=== PATIENT | female | born 1990 | race Hispanic/Latino ===

== ENCOUNTER 2016-08-06 04:39 | Outpatient (CLI) | payer BC, MEDICAID ==
[2016-08-06] MEDS ORDERED: LACTATED RINGERS 500 ML IV ONE (04:54)
[2016-08-06 05:28] LABS: Bacteria,Urine 1+ /HPF (Negative); Bilirubin,Urine NEG (Negative); Blood,Urine LG (Negative); Ketones,Urine NEG (Negative); Leukocyte Esterase,Urine NEG (Negative); Mucus,Urine FEW /HPF; Nitrite,Urine NEG (Negative); Protein,Urine <15 mg/dL mg/dL (Negative)
[2016-08-06 06:45] VITALS: BP 103/56
--- NOTE | 2016-08-06 10:35 | Ultrasound Report ---
BIOPHYSICAL PROFILE: History: well-being. Technique: Transabdominal ultrasound with Doppler interrogation. 2 - breathing movements 2 - movements 2 - posture and tone 2 - Qualitative amniotic fluid volume 8 - TOTAL SCORE OF POSSIBLE 8 Heart Rate (bpm) 146
== END 2016-08-06 06:53 | disposition home or self-care (01) ==
LOC: TRG 04:39
PROVIDERS: ATTEND Obstetrics & Gynecology Gynecology
DX: O47.03 False labor before 37 completed weeks of gestation, third trimester (principal); Z3A.35 35 weeks gestation of pregnancy
CPT/HCPCS: 76819; 81001

== ENCOUNTER 2016-08-10 19:49 | Outpatient (CLI) | payer BC, MEDICAID ==
[2016-08-10 22:32] VITALS: BP 133/80
[2016-08-11] MEDS ORDERED: VISTARIL PO ONE (00:31)
--- NOTE | 2016-08-11 07:57 | Ultrasound Report ---
OB LIMITED Technique: Transabdominal ultrasound with Doppler interrogation. Gestation: Single Amniotic Fluid: Normal ANU = 7.5 cm Heart Rate: 121 BPM
--- NOTE | 2016-08-11 07:57 | Ultrasound Report ---
BIOPHYSICAL PROFILE: Technique: Transabdominal ultrasound with Doppler interrogation. 2 - breathing movements 2 - movements 2 - posture and tone 2 - Qualitative amniotic fluid volume 8 - TOTAL SCORE OF POSSIBLE 8 Heart Rate (bpm) 143
== END 2016-08-11 00:35 | disposition home or self-care (01) ==
LOC: TRG 19:49
PROVIDERS: ATTEND Obstetrics & Gynecology Gynecology
DX: O47.03 False labor before 37 completed weeks of gestation, third trimester (principal); Z3A.35 35 weeks gestation of pregnancy
CPT/HCPCS: 76815; 76819; Q0177

== ENCOUNTER 2016-08-17 18:09 | Inpatient (IN) | payer BC, MEDICAID ==
[2016-08-17] MEDS ORDERED: COLACE PO PRN (19:17)
[2016-08-17] MEDS ORDERED: MILK OF MAGNESIA PO PRN (19:17)
[2016-08-17] MEDS ORDERED: ZOFRAN IV PRN (19:17)
[2016-08-17] MEDS ORDERED: APRESOLINE IV PRN (19:17)
--- NOTE | 2016-08-17 19:28 | History and Physical Report ---
History of Present Illness Date of examination: 08/17/16 Chief complaint: Headaches and blurred vision History of present illness: Pt is a 26yo WF EDC 09/10/16; EGA 36 4/7 weeks presents from the office today complaining of headaches and blurred vision. BP's in office was 148/98 and she has a history of previous c section @ 32 weeks for preeclampsia. Today was her 1st visit at [facility] after transferring from [facility]. records are not available. On admission her BP was 113/66 Past History Past Medical History: no pertinent history Past Surgical History: section Family/Genetic History: none Social history: no significant social history, single - Obstetrical History Expected Date of Delivery: 09/10/16 Actual Gestation: 36 Week(s) 5 Day(s) : 2 Medications and Allergies Allergies Allergy/AdvReac Type Severity Reaction Status Date / Time Penicillins Allergy Rash Verified 09/23/15 11:22 Home Medications Medication Instructions Recorded Confirmed Last Taken Type Naproxen [Naprosyn] 500 mg PO BID #14 tablet 11/20/15 Unknown Rx Zoloft 0 mg PO DAILY 11/20/15 11/20/15 Unknown History Vit No.130/Iron/FA 1 each PO QDAY #30 tablet 01/23/16 Unknown Rx [ Tablet] Review of Systems All systems: negative - Vital Signs Vital signs: Vital Signs Pulse BP 96 H 113/66 08/17/16 18:52 08/17/16 18:52 Temp Pulse Resp BP Pulse Ox 105 H 132/83 08/17/16 19:12 08/17/16 19:12 - Physical Exam Breasts: Positive: deferred Cardiovascular: Regular rate Lungs: Positive: Clear to auscultation Abdomen: Positive: normal appearance, soft Uterus: Positive: enlarged Extremities: Positive: normal - Obstetrical FHR: category 1 Uterine Contraction Monitor Mode: External Uterine Contraction Pattern: Absent Results Result Diagrams: 08/17/16 20:16 08/17/16 20:16 All other labs normal. Assessment and Plan - Patient Problems (1) 36 weeks gestation of Onset Date: 08/17/16 Current Visit: Yes Status: Acute Plan to address problem: A: IUP @ 36 4/7 weeks Suspected pre-eclapmsia Previous C Section P: Admit to L&D for Observation Will monitor BP's and obtain PIH labs Obtain medical records from [facility] Obtain APA consult (2) Previous delivery affecting Onset Date: 08/17/16 Current Visit: Yes Status: Acute (3) Pre-eclampsia Onset Date: 08/17/16 Current Visit: Yes Status: Acute Qualifiers: Trimester: third trimester Qualified Code(s): O14.93 - Unspecified pre- eclampsia, third trimester
[2016-08-17] MEDS ORDERED: LACTATED RINGERS 1,000 ML IV SCH (20:00)
[2016-08-17 20:44] LABS: Basophils % (Auto) 0.3 % (0.0-1.8); Eosinophils % (Auto) 1.4 % (0.0-4.3); Hematocrit 33.2 % (30.3-42.9); Hemoglobin 11.3 gm/dl (10.1-14.3); Mean Corpuscular HGB Conc 34 % (30-34); Mean Corpuscular Hemoglobin 29 pg (28-32); Mean Corpuscular Volume 84 fl (79-97); Red Blood Count 3.95 M/mm3 (3.65-5.03); Red Cell Distribution Width 13.1 % (13.2-15.2); White Blood Count 12.1 K/mm3 (4.5-11.0)
[2016-08-17 20:56] LABS: Bacteria,Urine 1+ /HPF (Negative); Bilirubin,Urine NEG (Negative); Blood,Urine NEG (Negative); Ketones,Urine NEG (Negative); Leukocyte Esterase,Urine NEG (Negative); Mucus,Urine FEW /HPF; Nitrite,Urine NEG (Negative); Protein,Urine <15 mg/dL mg/dL (Negative); Urobilinogen,Urine < 2.0 mg/dL (<2.0)
[2016-08-17 21:03] LABS: Platelet Count 165 K/mm3 (140-440)
[2016-08-17] MEDS: TYLENOL PO PRN (21:07)
[2016-08-17 21:11] LABS: Uric Acid 4.4 mg/dL (3.5-7.6)
[2016-08-17 21:12] LABS: Alanine Aminotransferase 14 units/L (7-56); Albumin 3.3 g/dL (3.9-5); Alkaline Phosphatase 158 units/L (35-129); Anion Gap 21 mmol/L; Bilirubin,Total 0.2 mg/dL (0.1-1.2); Blood Urea Nitrogen 4 mg/dL (7-17); Calcium 8.9 mg/dL (8.4-10.2); Carbon Dioxide 20 mmol/L (22-30); Chloride 97.5 mmol/L (98-107); Glucose 77 mg/dL (65-100); Potassium 3.4 mmol/L (3.6-5.0); Sodium 135 mmol/L (137-145); Total Protein 6.7 g/dL (6.3-8.2)
[2016-08-17] MEDS ORDERED: AMBIEN PO PRN (22:38)
[2016-08-17] MEDS: LACTATED RINGERS 1,000 ML IV SCH (23:09)
--- NOTE | 2016-08-18 08:41 | Consultation ---
History of Present Illness Consult date: 08/18/16 Requesting physician: KAYE NANCE History of present illness: Chief complaint: Headaches and blurred vision History of present illness: Pt is a 26yo WF EDC 09/10/16; EGA 365/7 weeks Presented from the office today complaining of headaches and blurred vision. Today GERONIMO's - States " I have not eaten and this may be causing my GERONIMO's" - Denies HO CHTN BP's in office was ??? 148/98 (no records) and she has a history of previous c section @ 32 weeks for preeclampsia. Yesterday was her 1st visit at [facility] after transferring from [facility]. records are not available. On admission her BP was 113/66 now BP's Normal 115/69 ---- Labs Plts and Liver Functions WNL ---- Abdomen Obese Gravid NT no rebound no guarding Ext tr edema DTR's 2/4 no clonus Past History Past Medical History: no pertinent history Past Surgical History: section and APPY Family/Genetic History: none Social history: no significant social history, single Allergies - PCN - Obstetrical History Expected Date of Delivery: 09/10/16 Actual Gestation: 36 Week(s) 5 Day(s) : 2 States last Past History Past Medical History: no pertinent history Past Surgical History: section Family/Genetic History: none - Obstetrical History : 2 Medications and Allergies Allergies Allergy/AdvReac Type Severity Reaction Status Date / Time Penicillins Allergy Rash Verified 09/23/15 11:22 Home Medications Medication Instructions Recorded Confirmed Last Taken Type Naproxen [Naprosyn] 500 mg PO BID #14 tablet 11/20/15 Unknown Rx Zoloft 0 mg PO DAILY 11/20/15 11/20/15 Unknown History Vit No.130/Iron/FA 1 each PO QDAY #30 tablet 01/23/16 Unknown Rx [ Tablet] Active Meds: Active Medications Acetaminophen (Tylenol) 650 mg PO Q4H PRN PRN Reason: Pain MILD(1-3)/Fever >100.5/GERONIMO Last Admin: 08/17/16 21:07 Dose: 650 mg Docusate Sodium (Colace) 100 mg PO Q12H PRN PRN Reason: Constipation Hydralazine HCl (Apresoline) 5 mg IV Q30MIN PRN PRN Reason: Hypertension Lactated Ringer's (Lactated Ringers) 1,000 mls @ 125 mls/hr IV DIRECT NIKI Last Admin: 08/17/16 23:09 Dose: 125 mls/hr Magnesium Hydroxide (Milk Of Magnesia) 30 ml PO QHS PRN PRN Reason: Laxative Effect Multivitamins/Iron/Calcium ( Vitamin) 1 each PO QDAY NIKI Ondansetron HCl (Zofran) 4 mg IV Q6H PRN PRN Reason: Nausea And Vomiting Zolpidem Tartrate (Ambien) 10 mg PO QHS PRN PRN Reason: Insomnia Last Admin: 08/17/16 22:53 Dose: 10 mg - Vital Signs Vital signs: Vital Signs Pulse BP 96 H 113/66 08/17/16 18:52 08/17/16 18:52 Temp Pulse Resp BP Pulse Ox 97.0 F L 91 H 20 115/69 97 08/17/16 19:09 08/18/16 06:37 08/17/16 21:07 08/18/16 06:37 08/17/16 23:07 Results Result Diagrams: 08/17/16 20:16 08/17/16 20:16 Abnormal lab results 08/17/16 08/17/16 Range/Units 20:16 20:16 WBC 12.1 H (4.5-11.0) K/mm3 RDW 13.1 L (13.2-15.2) % Seg Neutrophils % 75.1 H (40.0-70.0) % Seg Neutrophils # 9.1 H (1.8-7.7) K/mm3 Sodium 135 L (137-145) mmol/L Potassium 3.4 L (3.6-5.0) mmol/L Chloride 97.5 L (98-107) mmol/L Carbon Dioxide 20 L (22-30) mmol/L BUN 4 L (7-17) mg/dL Creatinine 0.4 L (0.7-1.2) mg/dL Alkaline Phosphatase 158 H (35-129) units/L Albumin 3.3 L (3.9-5) g/dL All other labs normal. Assessment and Plan Assessment 1. Zamudio IUP at 36 5/7 weeks 2. GERONIMO's 3. H/O PTD secondary to Preeclamsia at 32 weeks with Prior Preg Recommendations: 1. Would allow diet - if GERONIMO's improving and BP's Normal and Labs remain Normal (24 Hour Urine Prot Pending) would allow discharge. 2. If GERONIMO's persistent despite diet and BP's remain normal - would obtain Neuro Consult 3. IF BP's increasing or would proceed with Delivery 4. Would try to obtain OB records to determine if BP's elevated in office 5. Discussed in detail with patient -
[2016-08-18] MEDS: TYLENOL PO PRN ×2 (08:54→19:05)
[2016-08-18] MEDS: LACTATED RINGERS 1,000 ML IV SCH ×2 (08:56→22:07)
[2016-08-18] MEDS ORDERED: PRENATAL VITAMIN PO SCH (10:00)
--- NOTE | 2016-08-18 11:38 | Progress Note ---
Assessment and Plan - Patient Problems (1) 36 weeks gestation of Onset Date: 08/17/16 Current Visit: Yes Status: Acute Plan to address problem: A: IUP @ 36 5/7 weeks Suspect pre-eclampsia - BP's normal and LFT's - WNL. P: Appreciate APA consultation Awaiting results of 24hr urine for protein Possible discharge to home tonight depending on results (2) Previous delivery affecting Onset Date: 08/17/16 Current Visit: Yes Status: Acute (3) Pre-eclampsia Onset Date: 08/17/16 Current Visit: Yes Status: Acute Qualifiers: Trimester: third trimester Qualified Code(s): O14.93 - Unspecified pre- eclampsia, third trimester Subjective - Subjective Date of service: 08/18/16 Principal diagnosis: IUP @ 36 5/7 weeks; Suspected pre-eclampsia Interval history: Pt is feeling better, headaches resolved. Still has blurred vision. BP 117/62 Patient reports: movement normal, no new complaints, no loss of fluid, no vaginal bleeding, no contractions Objective - Vital Signs Vital Signs: Vital Signs - 12hr 08/18/16 08/18/16 08/18/16 00:38 02:38 04:37 Temperature Pulse Rate 115 H 100 H 101 H Pulse Rate [ From Monitor] Respiratory Rate Blood Pressure 136/91 112/56 108/53 Blood Pressure [Left Arm] O2 Sat by Pulse Oximetry 08/18/16 08/18/16 08/18/16 06:37 08:35 08:36 Temperature 95.6 F L Pulse Rate 91 H 93 H Pulse Rate [ 100 H From Monitor] Respiratory 20 Rate Blood Pressure 115/69 122/71 Blood Pressure 122/71 [Left Arm] O2 Sat by Pulse Oximetry 08/18/16 08/18/16 08/18/16 08:37 08:42 08:47 Temperature Pulse Rate 106 H 106 H 104 H Pulse Rate [ From Monitor] Respiratory Rate Blood Pressure Blood Pressure [Left Arm] O2 Sat by Pulse 99 97 98 Oximetry 08/18/16 08/18/16 08/18/16 08:52 08:54 08:57 Temperature Pulse Rate 94 H 100 H Pulse Rate [ From Monitor] Respiratory 20 Rate Blood Pressure Blood Pressure [Left Arm] O2 Sat by Pulse 97 98 Oximetry 08/18/16 08/18/16 08/18/16 09:02 09:07 09:12 Temperature Pulse Rate 100 H 100 H 106 H Pulse Rate [ From Monitor] Respiratory Rate Blood Pressure Blood Pressure [Left Arm] O2 Sat by Pulse 98 99 98 Oximetry 08/18/16 08/18/16 08/18/16 09:17 09:22 09:27 Temperature Pulse Rate 104 H 114 H 98 H Pulse Rate [ From Monitor] Respiratory Rate Blood Pressure Blood Pressure [Left Arm] O2 Sat by Pulse 99 100 99 Oximetry 08/18/16 08/18/16 08/18/16 09:32 09:37 09:42 Temperature Pulse Rate 91 H 90 90 Pulse Rate [ From Monitor] Respiratory Rate Blood Pressure Blood Pressure [Left Arm] O2 Sat by Pulse 100 100 100 Oximetry 08/18/16 08/18/16 08/18/16 09:47 09:52 09:57 Temperature Pulse Rate 96 H 97 H 97 H Pulse Rate [ From Monitor] Respiratory Rate Blood Pressure Blood Pressure [Left Arm] O2 Sat by Pulse 100 100 99 Oximetry 08/18/16 08/18/16 08/18/16 10:02 10:07 10:12 Temperature Pulse Rate 112 H 89 91 H Pulse Rate [ From Monitor] Respiratory Rate Blood Pressure Blood Pressure [Left Arm] O2 Sat by Pulse 99 99 99 Oximetry 08/18/16 08/18/16 08/18/16 10:17 10:22 10:27 Temperature Pulse Rate 91 H 103 H 92 H Pulse Rate [ From Monitor] Respiratory Rate Blood Pressure Blood Pressure [Left Arm] O2 Sat by Pulse 98 97 98 Oximetry 08/18/16 08/18/16 08/18/16 10:32 10:37 10:38 Temperature Pulse Rate 83 108 H 110 H Pulse Rate [ From Monitor] Respiratory Rate Blood Pressure 120/56 Blood Pressure [Left Arm] O2 Sat by Pulse 97 98 Oximetry 08/18/16 08/18/16 08/18/16 10:42 10:47 10:52 Temperature Pulse Rate 92 H 94 H 96 H Pulse Rate [ From Monitor] Respiratory Rate Blood Pressure Blood Pressure [Left Arm] O2 Sat by Pulse 98 97 99 Oximetry 08/18/16 08/18/16 08/18/16 10:57 11:10 11:12 Temperature Pulse Rate 85 100 H 97 H Pulse Rate [ From Monitor] Respiratory Rate Blood Pressure 117/62 Blood Pressure [Left Arm] O2 Sat by Pulse 98 100 Oximetry 08/18/16 08/18/16 08/18/16 11:17 11:22 11:27 Temperature Pulse Rate 99 H 91 H 98 H Pulse Rate [ From Monitor] Respiratory Rate Blood Pressure Blood Pressure [Left Arm] O2 Sat by Pulse 100 100 100 Oximetry 08/18/16 11:32 Temperature Pulse Rate 95 H Pulse Rate [ From Monitor] Respiratory Rate Blood Pressure Blood Pressure [Left Arm] O2 Sat by Pulse 100 Oximetry - Exam Cardiovascular: Regular rate Lungs: Clear to auscultation Abdomen: Present: normal appearance, soft Uterus: Present: normal FHR: category 1 Uterine Contraction Monitor Mode: External Uterine Contraction Pattern: Absent - Labs Labs: Abnormal Labs 08/17/16 08/17/16 20:16 20:16 WBC 12.1 H RDW 13.1 L Seg Neutrophils % 75.1 H Seg Neutrophils # 9.1 H Sodium 135 L Potassium 3.4 L Chloride 97.5 L Carbon Dioxide 20 L BUN 4 L Creatinine 0.4 L Alkaline Phosphatase 158 H Albumin 3.3 L Laboratory Results - last 24 hr 08/17/16 08/17/16 08/17/16 20:16 20:16 20:16 WBC 12.1 H RBC 3.95 Hgb 11.3 Hct 33.2 MCV 84 MCH 29 MCHC 34 RDW 13.1 L Plt Count 165 Lymph % (Auto) 17.8 George % (Auto) 5.4 Eos % (Auto) 1.4 Baso % (Auto) 0.3 Lymph # 2.2 George # 0.7 Eos # 0.2 Baso # 0.0 Seg Neutrophils % 75.1 H Seg Neutrophils # 9.1 H Sodium 135 L Potassium 3.4 L Chloride 97.5 L Carbon Dioxide 20 L Anion Gap 21 BUN 4 L Creatinine 0.4 L Estimated GFR > 60 BUN/Creatinine Ratio 10.00 Glucose 77 Uric Acid Calcium 8.9 Total Bilirubin 0.2 AST 11 ALT 14 Alkaline Phosphatase 158 H Total Protein 6.7 Albumin 3.3 L Albumin/Globulin Ratio 1.0 Urine Color Yellow Urine Turbidity Clear Urine pH 6.0 Ur Specific Meridian 1.010 Urine Protein <15 mg/dl Urine Glucose (UA) Neg Urine Ketones Neg Urine Blood Neg Urine Nitrite Neg Urine Bilirubin Neg Urine Urobilinogen < 2.0 Ur Leukocyte Esterase Neg Urine WBC (Auto) 1.0 Urine RBC (Auto) 2.0 U Epithel Cells (Auto) 6.0 Urine Bacteria (Auto) 1+ Urine Mucus Few Blood Type Antibody Screen 08/17/16 08/17/16 20:16 20:16 WBC RBC Hgb Hct MCV MCH MCHC RDW Plt Count Lymph % (Auto) George % (Auto) Eos % (Auto) Baso % (Auto) Lymph # George # Eos # Baso # Seg Neutrophils % Seg Neutrophils # Sodium Potassium Chloride Carbon Dioxide Anion Gap BUN Creatinine Estimated GFR BUN/Creatinine Ratio Glucose Uric Acid 4.4 Calcium Total Bilirubin AST 11 ALT 14 Alkaline Phosphatase Total Protein Albumin Albumin/Globulin Ratio Urine Color Urine Turbidity Urine pH Ur Specific Meridian Urine Protein Urine Glucose (UA) Urine Ketones Urine Blood Urine Nitrite Urine Bilirubin Urine Urobilinogen Ur Leukocyte Esterase Urine WBC (Auto) Urine RBC (Auto) U Epithel Cells (Auto) Urine Bacteria (Auto) Urine Mucus Blood Type O POSITIVE Antibody Screen Negative
[2016-08-19 00:12] VITALS: BP 143/71
--- NOTE | 2016-08-19 00:25 | Discharge Summary ---
Providers - Providers Date of Admission: 08/17/16 23:56 Date of discharge: 08/19/16 Attending physician: KAYE NANCE 08/18/16 06:21 Consult to Physician [CONS] Urgent Consulting Provider: SAY JUÁREZ Reason For Exam: Preeclampsia Place consult to:: NIALL Notified:: Answering service Phone number called:: [phone] Was contact made?: Yes If yes, spoke with:: Isela Time called:: 06:23 Primary care physician: KAYE NANCE Hospitalization Reason for admission: other (IUP @ 36 4/7 weeks; Suspect pre-eclampsia) Other procedures: none complications: none Discharge diagnosis: other (IUP @ 36 5/7 weeks; Gestational hypertension) Hospital course: Pt is a 26yo WF EDC 09/10/16; EGA 36 4/7 weeks who presented from the office today complaining of headaches and blurred vision. BP's in office was 148/98 and she has a history of previous c section @ 32 weeks for preeclampsia. records are not available. On admission her BP was 113/66, and they remained normal throughout her admission, including Normal PIH labs and 24hr urine showed 198mg of protein. After consultation with NIALL, and with resolution of headaches, pt was discharged to home in stable condition. Condition at discharge: Good Disposition: DISCHARGED TO HOME OR SELFCARE - Discharge Diagnoses (1) 36 weeks gestation of Status: Acute (2) Previous delivery affecting Status: Acute (3) Pre-eclampsia Status: Ruled-out Qualifiers: Trimester: third trimester Qualified Code(s): O14.93 - Unspecified pre- eclampsia, third trimester Plan - Provider Discharge Summary Activity: routine, no strenuous exercise Diet: routine Instructions: routine Additional instructions: [] Smoking cessation referral if applicable(refer to patient education folder for contact #) [] Refer to [facility] Booklet Call your doctor immediately for: * Fever > 100.5 * Heavy vaginal bleeding ( >1 pad per hour) * Severe persistent headache * Shortness of breath * Reddened, hot, painful area to leg or breast * Drainage or odor from incision. * Keep incision clean and dry at all times and follow doctor's instructions regarding bathing/showering - Follow up plan Follow up: KAYE NANCE MD [Primary Care Provider] - 3 Days
== END 2016-08-19 00:50 | disposition home or self-care (01) | DRG 781 ==
LOC: TRG 18:09 → LD 18:41 → TRG 23:56
PROVIDERS: ADMIT Obstetrics & Gynecology; ATTEND Obstetrics & Gynecology
DX: O34.219 Maternal care for unspecified type scar from previous cesarean delivery (principal); O24.419 Gestational diabetes mellitus in pregnancy, unspecified control; O14.93 Unspecified pre-eclampsia, third trimester; O26.893 Other specified pregnancy related conditions, third trimester; R51 Headache; H53.8 Other visual disturbances; Z3A.36 36 weeks gestation of pregnancy; Z88.0 Allergy status to penicillin
CPT/HCPCS: 36415; 80053; 81001; 84156; 84450; 84460; 84550; 85025; 86850; 86900; 86901; J7120

== ENCOUNTER 2016-08-20 17:49 | Outpatient (CLI) | payer MEDICAID ==
[2016-08-20 18:13] VITALS: BP 124/71
== END 2016-08-20 19:12 | disposition home or self-care (01) ==
LOC: TRG 17:49
PROVIDERS: ATTEND Obstetrics & Gynecology Gynecology
DX: O47.1 False labor at or after 37 completed weeks of gestation (principal); Z3A.37 37 weeks gestation of pregnancy
CPT/HCPCS: 59025

== ENCOUNTER 2016-08-23 18:45 | Outpatient (CLI) | payer MEDICAID ==
[2016-08-23 19:37] VITALS: BP 125/77
== END 2016-08-23 20:13 | disposition home or self-care (01) ==
LOC: TRG 18:45
PROVIDERS: ATTEND Obstetrics & Gynecology
DX: O47.1 False labor at or after 37 completed weeks of gestation (principal); Z3A.37 37 weeks gestation of pregnancy

== ENCOUNTER 2016-08-28 23:03 | Outpatient (CLI) | payer MEDICAID ==
[2016-08-29 00:09] VITALS: BP 146/77
== END 2016-08-29 00:21 | disposition home or self-care (01) ==
LOC: TRG 23:03
PROVIDERS: ATTEND Obstetrics & Gynecology Gynecology
DX: Z34.93 Encounter for supervision of normal pregnancy, unspecified, third trimester (principal); Z3A.38 38 weeks gestation of pregnancy

== ENCOUNTER 2016-09-04 18:59 | Outpatient (CLI) | payer MEDICAID ==
[2016-09-04 19:12] VITALS: BP 120/80
[2016-09-04] MEDS ORDERED: LACTATED RINGERS 1,000 ML IV ONE (19:54)
== END 2016-09-04 21:14 | disposition home or self-care (01) ==
LOC: TRG 18:59
PROVIDERS: ATTEND Obstetrics & Gynecology
DX: O47.1 False labor at or after 37 completed weeks of gestation (principal); Z3A.39 39 weeks gestation of pregnancy
CPT/HCPCS: 96360; J7120

== ENCOUNTER 2016-09-07 09:33 | Inpatient (IN) | payer MEDICAID ==
--- NOTE | 2016-09-07 09:43 | History and Physical Report ---
History of Present Illness Date of examination: 09/07/16 Date of admission: 09/07/16 09:33 Chief complaint: Here for repeat C Section History of present illness: Pt is a 26yo WF EDC 09/10/16; EGA 39 4/7 weeks presents for a Repeat C Section. She received late care from [facility] at 36 weeks after being dismissed from another practice for non-compliance. records from her previous associate media director is not available and GBS is positive. Past History Past Medical History: hypertension (gestational) Past Surgical History: section Family/Genetic History: hypertension Social history: no significant social history, single - Obstetrical History Expected Date of Delivery: 09/10/16 Actual Gestation: 39 Week(s) 4 Day(s) : 3 Medications and Allergies Allergies Allergy/AdvReac Type Severity Reaction Status Date / Time Penicillins Allergy Rash Verified 09/23/15 11:22 Home Medications Medication Instructions Recorded Confirmed Last Taken Type Naproxen [Naprosyn] 500 mg PO BID #14 tablet 11/20/15 08/20/16 Unknown Rx Zoloft 0 mg PO DAILY 11/20/15 08/20/16 Unknown History Vit No.130/Iron/FA 1 each PO QDAY #30 tablet 01/23/16 08/20/16 1 Day Ago Rx [ Tablet] Active Meds: Active Medications Citric Acid/Sodium Citrate (Bicitra) 30 ml PO ONCE ONE Stop: 09/07/16 09:40 Famotidine (Pepcid) 20 mg IV ONCE ONE Stop: 09/07/16 09:40 Clindamycin HCl (Cleocin 600 Mg/50 Ml) 600 mg in 50 mls @ 100 mls/hr IV PREOP NR PRN Reason: Protocol Gentamicin Sulfate 80 mg/ (Sodium Chloride) 102 mls @ 200 mls/hr IV PREOP NIKI PRN Reason: Protocol Lactated Ringer's (Lactated Ringers) 1,000 mls @ 2,250 mls/hr IV PREOP NIKI Stop: 09/08/16 10:27 Oxytocin/Sodium Chloride (Pitocin/Ns 20 Unit/1000ml Drip) 20 units in 1,000 mls @ 0 mls/hr IV TITR NIKI PRN Reason: As Directed Metoclopramide HCl (Reglan) 10 mg IV ONCE ONE Stop: 09/07/16 09:40 Review of Systems All systems: negative - Physical Exam Breasts: Positive: deferred Cardiovascular: Regular rate Lungs: Positive: Clear to auscultation Abdomen: Positive: normal appearance, soft Uterus: Positive: enlarged Extremities: Positive: normal - Obstetrical FHR: category 1 Uterine Contraction Monitor Mode: External Uterine Contraction Pattern: Absent Results Result Diagrams: 09/07/16 10:00 All other labs normal. Assessment and Plan - Patient Problems (1) 39 weeks gestation of Onset Date: 09/07/16 Current Visit: Yes Status: Acute Plan to address problem: A: IUP @ 39 4/7 weeks Previous C Section P: Admit to L&D for Repeat C Section (2) Previous delivery affecting Onset Date: 08/17/16 Current Visit: No Status: Acute
[2016-09-07] MEDS ORDERED: GARAMYCIN 80 MG in NACL 0.9% 100 ML IV SCH (09:45)
[2016-09-07] MEDS ORDERED: REGLAN IV NR (10:00)
[2016-09-07] MEDS ORDERED: PEPCID IV NR (10:00)
[2016-09-07] MEDS ORDERED: PITOCin/NS 20 UNIT/1000ML DRIP 20 UNITS/1,000 ML BAG IV SCH ×2 (10:00→15:00)
[2016-09-07] MEDS ORDERED: GARAMYCIN/NS 80 MG/100 ML 100 ML IV NR (10:00)
[2016-09-07] MEDS ORDERED: CLEOCIN 600 MG/50 mL 600 MG/50 ML BAG IV NR (10:00)
[2016-09-07] MEDS ORDERED: LACTATED RINGERS 1,000 ML IV SCH (10:00)
[2016-09-07] MEDS ORDERED: BICITRA PO NR (10:00)
[2016-09-07 10:48] LABS: Basophils % (Auto) 0.2 % (0.0-1.8); Eosinophils % (Auto) 0.8 % (0.0-4.3); Hemoglobin 11.1 gm/dl (10.1-14.3); Mean Corpuscular HGB Conc 34 % (30-34); Mean Corpuscular Hemoglobin 28 pg (28-32); Mean Corpuscular Volume 83 fl (79-97); Platelet Count 171 K/mm3 (140-440); Red Cell Distribution Width 13.6 % (13.2-15.2); White Blood Count 11.7 K/mm3 (4.5-11.0)
--- NOTE | 2016-09-07 10:56 | Anesthesia Consultation ---
Anesthesia Consult and Med Hx Date of service: 09/07/16 - Airway Anesthetic Teeth Evaluation: Good ROM Head & Neck: Adequate Mental/Hyoid Distance: Adequate Mallampati Class: Class II Intubation Access Assessment: Probably Good - Pre-Operative Health Status ASA Pre-Surgery Classification: ASA3 Proposed Anesthetic Plan: Epidural, Spinal - Pulmonary Hx Asthma: Yes COPD: No Hx Pneumonia: No - Cardiovascular System Hx Hypertension: Yes (PIH) - Central Nervous System Hx Seizures: No Hx Psychiatric Problems: No - Endocrine Hx Renal Disease: No Hx End Stage Renal Disease: No Hx Hypothyroidism: No Hx Hyperthyroidism: No - Hematic Hx Anemia: No Hx Sickle Cell Disease: No - Other Systems Hx Alcohol Use: No Hx Obesity: Yes (morbid obesityBMI 46.6)
--- NOTE | 2016-09-07 10:57 | Anesthesia Day of Surgery ---
Anesthesia Day of Surgery - Day of Surgery Patient Examined: Yes Patient H&P Reviewed: Yes Patient is NPO: Yes
[2016-09-07] MEDS ORDERED: SODIUM CHLORIDE FLUSH SYRINGE 10 ML IV PRN (11:00)
[2016-09-07] MEDS ORDERED: ZOFRAN IV PRN (11:00)
[2016-09-07] MEDS ORDERED: TORADOL IV PRN (11:00)
[2016-09-07] MEDS ORDERED: DILAUDID IV PRN (11:00)
[2016-09-07] MEDS ORDERED: NARCAN 0.4 MG/1 ML IV PRN ×2 (11:30→13:53)
[2016-09-07] MEDS ORDERED: MORPHINE ONE (11:39)
[2016-09-07] MEDS ORDERED: NEO SYNEPHRINE/NS Syringe(OR USE) IV ONE ×2 (12:21→12:30)
[2016-09-07] MEDS ORDERED: WATER FOR IRRIG STERILE IR ONE (12:40)
[2016-09-07] MEDS ORDERED: NACL 0.9% IR ONE (12:40)
[2016-09-07] MEDS ORDERED: ZOFRAN ONE (12:43)
[2016-09-07] MEDS ORDERED: TORADOL ONE (12:55)
[2016-09-07] MEDS: BENADRYL IV PRN ×2 (13:30→15:54)
[2016-09-07] MEDS ORDERED: NORCO 5/325 PO PRN (13:53)
[2016-09-07] MEDS ORDERED: SENOKOT PO PRN (13:53)
[2016-09-07] MEDS ORDERED: PHENERGAN PR PRN (13:53)
[2016-09-07] MEDS ORDERED: TUCKS PAD TP PRN (13:53)
[2016-09-07] MEDS ORDERED: TYLENOL PO PRN (13:53)
[2016-09-07] MEDS ORDERED: D5LR 1,000 ML IV SCH (14:00)
[2016-09-07] MEDS ORDERED: SODIUM CHLORIDE FLUSH SYRINGE 10 ML IV NR (14:00)
--- NOTE | 2016-09-07 14:11 | Operative Report ---
Operative Report Operative Report: Date of procedure: 09/07/2016 Pre-operative diagnosis: 1. Intrauterine at 39-4/7 weeks 2. Previous section Post-operative diagnosis: Same Procedure name(s): Repeat low transverse section Surgeon: Mark Paz MD Social Secretary: None Anesthesia: Spinal anesthesia by Dr. Choco Kate EBL: 700 MLS Findings: A 2896 g male infant Apgars 8 at 1 minute 9 at 5 minutes. Clear amniotic fluid. Normal uterus with lower uterine adhesions. Normal tubes and ovaries bilaterally Procedure: After the patient was prepped and draped in usual sterile fashion, and after satisfactory level of epidural anesthesia was obtained, the skin knife was used to make a transverse skin incision through the previous skin scar. The incision was excised down to layer of the fascia, which was nicked in the midline and extended laterally using the Bovie cautery. The rectus muscles were dissected off the rectus fascia both superiorly and inferiorly. The rectus bellies in the midline, and the peritoneum was entered under direct visualization. The peritoneal incision was extended superiorly and inferiorly, and dense adhesions from the lower uterine segment was taken down. A bladder flap was created and the bladder blade was then placed. The uterus was scored in a curvilinear linear fashion, entered in the midline revealing clear amniotic fluid. The infant's head was delivered onto the surgical field with the aid of a vacuum, and nuchal cord 1 was reduced, and the oropharynx and nasopharynx were bulb suctioned. The rest of the 's body was delivered, cord was doubly clamped and cut and the infant was handed to the waiting respiratory team. Cord blood was then obtained. The placenta was manually removed from the uterus, and the uterus removed from its normal anatomical position. After gentle uterine lavage, the incision was inspected and found to be without extensions. It was then closed in 2 layers using 0 Vicryl suture in a running interlocking fashion, the second layer imbricating the first. After good hemostasis was achieved, copious amounts or irrigation was performed, and the gutters were suctioned free of blood and blood clots. The Tisseel sealant was sprayed across the uterine incision. The uterus was then returned to its normal anatomical position, and after excellent hemostasis assured, the peritoneum was reapproximated using 3-0 Vicryl suture in a running interlocking fashion, and then the rectus muscles were reapproximated using 3-0 Vicryl suture in a [id number] configuration. The fascia was then reapproximated using 0 Vicryl suture in running interlocking fashion. The subcutaneous layer was made hemostatic using Bovie cautery and reapproximated using 3-0 Vicryl suture in a running interlocking fashion, the Tisseel sealant was sprayed across the fascial incision and the skin edges reapproximated using 4-0 Vicryl suture in a subcuticular fashion. Patient tolerated the procedure well was transported to recovery in stable condition.
[2016-09-07] MEDS: CLEOCIN 600 MG/50 mL 600 MG/50 ML BAG IV SCH (17:43)
[2016-09-07] MEDS: PERCOCET 5/325 PO PRN (20:49)
[2016-09-08] MEDS: CLEOCIN 600 MG/50 mL 600 MG/50 ML BAG IV SCH (01:24)
[2016-09-08] MEDS: BENADRYL IV PRN ×2 (02:12→21:55)
[2016-09-08 02:25] LABS: Hematocrit 31.5 % (30.3-42.9); Hemoglobin 10.4 gm/dl (10.1-14.3)
[2016-09-08] MEDS: PERCOCET 5/325 PO PRN ×4 (04:02→22:09)
[2016-09-08] MEDS ORDERED: M-M-R II VACCINE SUB-Q ONE (06:00)
[2016-09-08] MEDS ORDERED: BOOSTRIX IM ONE (06:00)
[2016-09-08] MEDS: MOTRIN PO PRN ×3 (07:39→18:30)
[2016-09-08] MEDS: LANSINOH TP PRN (07:40)
--- NOTE | 2016-09-08 10:15 | Progress Note ---
Subjective Date of service: 09/08/16 Interval history: 1st POD after repeat Patient is in the bed, relatively comfortable. Pain is mostly controlled with pain meds. Ambulated well. No residual neurological deficit. No anesthesia complications Objective - Constitutional Vitals: Vital Signs - 12hr 09/08/16 09/08/16 00:25 08:15 Temperature 98.3 F 99.2 F Pulse Rate [ 87 88 Radial] Respiratory 20 20 Rate Blood Pressure 110/70 [Left Arm] Blood Pressure 132/73 [Right Arm] - Labs CBC & Chem 7: 09/08/16 01:53 Labs: Abnormal lab results 09/07/16 Range/Units 10:00 WBC 11.7 H (4.5-11.0) K/mm3 Seg Neutrophils % 77.2 H (40.0-70.0) % Seg Neutrophils # 9.0 H (1.8-7.7) K/mm3
--- NOTE | 2016-09-08 10:35 | Progress Note ---
Assessment and Plan - Patient Problems (1) 39 weeks gestation of Onset Date: 09/07/16 Current Visit: Yes Status: Resolved (2) Previous delivery affecting Onset Date: 08/17/16 Current Visit: No Status: Resolved (3) Status post repeat low transverse section Onset Date: 09/08/16 Current Visit: Yes Status: Resolved Plan to address problem: A: S/P Repeat LTCS - POD #1 Doing well P: Continue RPOC Advance diet as tolerated Anticipate discharge in 24-48hrs Subjective - Subjective Date of service: 09/08/16 Principal diagnosis: s/p Repeat LTCS - POD #1 Interval history: Pt is feeling well without complaints. Tolerating a liquid diet without nausea or vomiting. + Flatus. Patient reports: appetite normal, voiding normally, pain well controlled, flatus , ambulating normally [place]: doing well, bottle feeding Objective - Vital Signs Latest vital signs: Vital Signs Temp Pulse Pulse Resp BP BP BP 09/08/16 08:15 99.2 F 88 20 110/70 09/08/16 00:25 98.3 F 87 20 132/73 09/07/16 20:20 98.2 F 90 20 127/71 09/07/16 14:30 97.6 F 87 20 133/64 09/07/16 14:10 98.1 F 80 14 112/73 09/07/16 13:54 97.9 F 83 12 127/52 09/07/16 13:40 97.9 F 83 12 115/60 09/07/16 13:25 85 15 113/72 09/07/16 13:20 97 H 14 88/53 09/07/16 13:15 97.7 F 101 H 18 108/66 Pulse Ox 09/08/16 08:15 09/08/16 00:25 09/07/16 20:20 09/07/16 14:30 09/07/16 14:10 98 09/07/16 13:54 83 L 09/07/16 13:40 83 L 09/07/16 13:25 80 L 09/07/16 13:20 98 09/07/16 13:15 98 Intake and Output 09/07/16 09/08/16 09/08/16 22:59 06:59 14:59 Intake Total 1700 240 Output Total 302 800 Balance 1398 -560 Intake: IV 500 CLEOCIN 600 MG/50 mL 600 50 mg In 50 ml @ 100 mls/hr IV Q8H [facility] Rx#:[id number] PITOCin/NS 20 UNIT/1000ML 450 DRIP 20 units In 1,000 ml @ 250 mls/hr IV TITR [facility] Rx#:[id number] Oral 1200 240 Output: Urine 302 800 Indwelling Catheter 300 300 Void 2 500 Other: Total, Intake Amount 240 240 Total, Output Amount 300 500 # Voids Void 1 - Exam Breasts: Present: deferred Cardiovascular: Present: Regular rate Lungs: Present: Clear to auscultation Abdomen: Present: normal appearance, soft Uterus: Present: normal, firm, fundal height below umbilicus Extremities: Present: normal Incision: Present: normal, dry, intact, dressed - Labs Labs: Abnormal lab results 09/07/16 Range/Units 10:00 WBC 11.7 H (4.5-11.0) K/mm3 Seg Neutrophils % 77.2 H (40.0-70.0) % Seg Neutrophils # 9.0 H (1.8-7.7) K/mm3 Laboratory Tests 09/07/16 09/07/16 09/07/16 10:00 10:00 10:00 WBC 11.7 H RBC 4.00 Hgb 11.1 Hct 33.0 MCV 83 MCH 28 MCHC 34 RDW 13.6 Plt Count 171 Lymph % (Auto) 17.0 [place] % (Auto) 4.8 Eos % (Auto) 0.8 Baso % (Auto) 0.2 Lymph # 2.0 [place] # 0.6 Eos # 0.1 Baso # 0.0 Seg Neutrophils % 77.2 H Seg Neutrophils # 9.0 H Hep Bs Antigen Non-reactive Blood Type O POSITIVE Antibody Screen Negative 09/08/16 01:53 WBC RBC Hgb 10.4 Hct 31.5 MCV MCH MCHC RDW Plt Count Lymph % (Auto) [place] % (Auto) Eos % (Auto) Baso % (Auto) Lymph # [place] # Eos # Baso # Seg Neutrophils % Seg Neutrophils # Hep Bs Antigen Blood Type Antibody Screen
[2016-09-08] MEDS ORDERED: FLUARIX QUAD 2016-2017(36 MOS+) IM ONE (12:00)
[2016-09-08] MEDS: PRENATAL VITAMIN PO SCH (12:55)
[2016-09-08] MEDS: FEOSOL PO SCH (12:55)
[2016-09-08] MEDS: MYLICON PO PRN (20:50)
[2016-09-09] MEDS: PERCOCET 5/325 PO PRN ×4 (02:11→21:04)
[2016-09-09] MEDS: MILK OF MAGNESIA PO PRN (08:46)
[2016-09-09] MEDS: MOTRIN PO PRN ×2 (10:43→18:09)
[2016-09-09] MEDS: FEOSOL PO SCH (10:43)
[2016-09-09] MEDS: PRENATAL VITAMIN PO SCH (10:43)
--- NOTE | 2016-09-09 12:33 | Progress Note ---
Assessment and Plan POD # 2 s/p Repeat C-sectiomn -doing well P: -Continue routine post-op care -Anticipate discharge in 24 hours - Patient Problems (1) Status post repeat low transverse section Onset Date: 09/08/16 Current Visit: Yes Status: Resolved Subjective - Subjective Date of service: 09/09/16 Principal diagnosis: s/p Repeat LTCS - POD #2 Interval history: Condition seen and examined, stable doing well. She fell on her belly last night and feels an ache otherwise no issues Patient reports: appetite normal, voiding normally, pain well controlled, flatus , ambulating normally, no dizzy ambulation, no bowel movement : doing well Objective - Vital Signs Latest vital signs: Vital Signs Temp Pulse Resp BP 09/09/16 08:28 98.7 F 90 20 113/67 09/09/16 00:00 98.6 F 77 24 122/74 09/08/16 19:40 98.6 F 72 22 115/70 09/08/16 16:38 98.4 F 76 20 110/84 Intake and Output 09/08/16 09/09/16 09/09/16 22:59 06:59 14:59 Intake Total 240 550 480 Balance 240 550 480 Intake: Oral 240 300 480 Intake, Free Water 250 Other: Total, Intake Amount 240 300 480 # Voids Void 1 1 - Exam Abdomen: Present: normal appearance, soft. Absent: distention, tenderness, guarding, rigidity Uterus: Present: fundal height below umbilicus. Absent: tenderness Incision: Present: dressed
[2016-09-09] MEDS: LANSINOH TP PRN (21:05)
[2016-09-09] MEDS: MYLICON PO PRN (21:08)
[2016-09-10] MEDS: PERCOCET 5/325 PO PRN ×2 (02:41→08:34)
[2016-09-10] MEDS: MOTRIN PO PRN (08:33)
[2016-09-10] MEDS: MILK OF MAGNESIA PO PRN (08:33)
--- NOTE | 2016-09-10 08:49 | Progress Note ---
Assessment and Plan POD # 3 s/p Repeat C-sectiomn -doing well P: -Discharged home -Follow-Up in clinic in ~ 2 weeks for incision check - Patient Problems (1) Status post repeat low transverse section Onset Date: 09/08/16 Current Visit: Yes Status: Resolved Subjective - Subjective Date of service: 09/10/16 Principal diagnosis: s/p Repeat LTCS - POD #3 Interval history: Patient seen and examined, stable doing well. Seen walking around in no distress, eager and ready for discharge Patient reports: appetite normal, voiding normally, pain well controlled, flatus , ambulating normally, no dizzy ambulation [place]: doing well Objective - Vital Signs Latest vital signs: Vital Signs Temp Pulse Resp BP 09/10/16 02:41 20 09/10/16 00:00 98.6 F 77 22 122/70 09/09/16 21:04 20 09/09/16 16:30 97.9 F 88 18 118/72 Intake and Output 09/09/16 09/10/16 09/10/16 22:59 06:59 14:59 Intake Total 960 900 Balance 960 900 Intake: Oral 960 300 Intake, Free Water 600 Other: Total, Intake Amount 480 300 # Voids Void 1 - Exam Abdomen: Present: normal appearance, soft. Absent: distention, tenderness, guarding, rigidity Uterus: Present: fundal height below umbilicus. Absent: tenderness Extremities: Present: normal Incision: Present: dry, dressed
--- NOTE | 2016-09-10 08:51 | Discharge Summary ---
Providers - Providers Date of Admission: 09/07/16 09:33 Date of discharge: 09/10/16 Attending physician: KAYE NANCE Primary care physician: KAYE NANCE Hospitalization Reason for admission: section, IUP at term Delivery: Procedure: repeat low transverse Incision: dry, intact Discharge diagnosis: IUP at term delivered [place] baby: male Hospital course: Uncomplicated postoperative course Condition at discharge: Good Disposition: DISCHARGED TO HOME OR SELFCARE - Discharge Diagnoses (1) Status post repeat low transverse section Status: Resolved Plan - Discharge Medications Prescriptions: Ferrous Sulfate [Feosol 325 MG tab] 325 mg PO BID #60 tablet HYDROcodone/APAP 5-325 [[place] 5/325] 1 each PO Q6HR PRN #30 tablet PRN Reason: Pain Ibuprofen [Motrin] 800 mg PO Q8HR PRN #30 tablet PRN Reason: Moder Pain Unrelieved By [place] Vit W-Ca,Fe,FA(<1 mg) [ Vitamins] 1 each PO DAILY #30 tablet - Provider Discharge Summary Activity: no sex for 6 weeks, no heavy lifting 4 weeks, no strenuous exercise Diet: routine Instructions: routine Additional instructions: [] Smoking cessation referral if applicable(refer to patient education folder for contact #) [] Refer to [facility]'s [facility] Booklet Call your doctor immediately for: * Fever > 100.5 * Heavy vaginal bleeding ( >1 pad per hour) * Severe persistent headache * Shortness of breath * Reddened, hot, painful area to leg or breast * Drainage or odor from incision. * Keep incision clean and dry at all times and follow doctor's instructions regarding bathing/showering - Follow up plan Follow up: KAYE NANCE MD [Primary Care Provider] - 14 Days
[2016-09-10] MEDS: PRENATAL VITAMIN PO SCH (11:47)
[2016-09-10] MEDS: FEOSOL PO SCH (11:47)
[2016-09-10] MEDS ORDERED: FLUARIX QUAD 2016-2017(36 MOS+) IM ONE (12:15)
[2016-09-10 14:13] VITALS: BP 126/76
== END 2016-09-10 11:10 | disposition home or self-care (01) | DRG 765 ==
LOC: APU 09:33 → OB 14:45
PROVIDERS: ADMIT Obstetrics & Gynecology; ATTEND Obstetrics & Gynecology
PROC: 10D00Z1 Extraction of Products of Conception, Low, Open Approach (ICD-10-PCS; principal; 2016-09-07)
DX: O34.211 Maternal care for low transverse scar from previous cesarean delivery (principal); Z68.42 Body mass index [BMI] 45.0-49.9, adult; O16.4 Unspecified maternal hypertension, complicating childbirth; O99.824 Streptococcus B carrier state complicating childbirth; O99.52 Diseases of the respiratory system complicating childbirth; O99.214 Obesity complicating childbirth; E66.01 Morbid (severe) obesity due to excess calories; J45.909 Unspecified asthma, uncomplicated; Z3A.39 39 weeks gestation of pregnancy; Z88.0 Allergy status to penicillin; Z37.0 Single live birth
CPT/HCPCS: 36415; 85014; 85018; 85025; 86706; 86850; 86900; 86901; 90471; 90686; 90715; 99211; A6250; C9250; G0463; J1170; J1200; J1580; J1885; J2270; J2370; J2405; J2590; J2765; J7120

== ENCOUNTER 2016-09-12 21:11 | Emergency (ER) | payer MEDICAID ==
[2016-09-12 22:37] VITALS: BP 154/108
[2016-09-12 23:29] LABS: Hematocrit 35.2 % (30.3-42.9); Hemoglobin 11.6 gm/dl (10.1-14.3); Mean Corpuscular HGB Conc 33 % (30-34); Mean Corpuscular Hemoglobin 27 pg (28-32); Mean Corpuscular Volume 83 fl (79-97); Platelet Count 274 K/mm3 (140-440); Red Blood Count 4.25 M/mm3 (3.65-5.03); Red Cell Distribution Width 12.9 % (13.2-15.2); White Blood Count 10.6 K/mm3 (4.5-11.0)
[2016-09-12 23:50] LABS: Alanine Aminotransferase 32 units/L (7-56); Albumin 3.3 g/dL (3.9-5); Albumin/Globulin Ratio 0.8 %; Alkaline Phosphatase 157 units/L (35-129); Anion Gap 22 mmol/L; Bilirubin,Total 0.3 mg/dL (0.1-1.2); Blood Urea Nitrogen 10 mg/dL (7-17); Carbon Dioxide 19 mmol/L (22-30); Chloride 101.5 mmol/L (98-107); Glucose 78 mg/dL (65-100); Potassium 4.2 mmol/L (3.6-5.0); Sodium 138 mmol/L (137-145); Total Protein 7.2 g/dL (6.3-8.2)
--- NOTE | 2016-09-15 12:37 | ED Elopement Review ---
ED Pt Elopement review - Results review Lab results: Laboratory Tests 09/12/16 09/12/16 23:08 23:08 WBC 10.6 RBC 4.25 Hgb 11.6 Hct 35.2 MCV 83 MCH 27 L MCHC 33 RDW 12.9 L Plt Count 274 Sodium 138 Potassium 4.2 Chloride 101.5 Carbon Dioxide 19 L Anion Gap 22 BUN 10 Creatinine 0.5 L Estimated GFR > 60 BUN/Creatinine Ratio 20.00 Glucose 78 Calcium 9.0 Total Bilirubin 0.3 AST 23 ALT 32 Alkaline Phosphatase 157 H Total Protein 7.2 Albumin 3.3 L Albumin/Globulin Ratio 0.8 - Call Back decision Pt Call Back Decision: No action required
== END 2016-09-12 23:00 | disposition left against medical advice (07) ==
LOC: ED 21:11
DX: R21 Rash and other nonspecific skin eruption (principal); Z53.21 Procedure and treatment not carried out due to patient leaving prior to being seen by health care provider
CPT/HCPCS: 36415; 80053; 85027

== ENCOUNTER 2019-06-25 11:36 | Emergency (ER) | payer MEDICAID, SELFPAY ==
--- NOTE | 2019-06-25 13:09 | Event Note ---
ED Screening Note ED Screening Note: this morning began having a cough with mucus production states she has chest tightness and SOB dry, itchy throat no rhinorrhea no fever no ear pain PMHx HTN, restless leg, anxiety, depression allergy: penicillin LNMP: a couple weeks ago denies non smoker no drinker no drug use This initial assessment/diagnostic orders/clinical plan/treatment(s) is/are subject to change based on patients health status, clinical progression and re- assessment by fellow clinical providers in the ED. Further treatment and workup at subsequent clinical providers discretion. Patient/guardian urged not to elope from the ED as their condition may be serious if not clinically assessed and managed. Initial orders include: CXR signed XR waiver on chart
--- NOTE | 2019-06-25 13:42 | XRay Report ---
CHEST 2 VIEWS INDICATION: cough, sob. COMPARISON: None FINDINGS: Support devices: None. Heart: Within normal limits. Lungs/pleura: No acute air space or interstitial disease. No pneumothorax. Additional findings: None. IMPRESSION: Normal chest x-ray Signer Name: Mark Garland Jr, MD Signed: 06/25/2019 1:38 PM Workstation Name: [id number]
--- NOTE | 2019-06-25 16:01 | Emergency Department Report ---
Minor Respiratory - HPI Chief Complaint: Upper Respiratory Infection Stated Complaint: CHEST PAIN/ERIC Time Seen by Provider: 06/25/19 13:07 Duration: 1 Day Pain Location: Throat, Nose, Chest Severity: moderate Minor Respiratory: Yes Rhinorrhea, Yes Sore Throat, Yes Able to Tolerate Fluids, Yes Cough, Yes Sick Contacts, Yes Chest Pain, Yes Fever, No Ear Pain, No Hemopty sis, No Shortness of Breath Other History: This is a 28-year-old female who presents to the emergency room with chest discomfort that woke her out of her sleep last night. Past medical history of hypertension and restless leg syndrome. Patient reports cough, sore throat, and dizziness with associated symptoms. Taken [id number]-[id number] medication with no relief. ED Review of Systems ROS: Stated complaint: CHEST PAIN/ERIC Other details as noted in HPI Constitutional: chills. denies: fever ENT: throat pain, congestion. denies: ear pain Respiratory: cough. denies: shortness of breath, wheezing Cardiovascular: denies: chest pain (chest tightness), palpitations Endocrine: no symptoms reported Gastrointestinal: denies: abdominal pain, nausea, diarrhea Musculoskeletal: denies: back pain, joint swelling, arthralgia Skin: denies: rash, lesions Neurological: denies: headache, weakness, paresthesias Psychiatric: denies: anxiety, depression ED Past Medical Hx - Past Medical History Hx Hypertension: Yes (PIH) Hx Congestive Heart Failure: No Hx Diabetes: No Hx Deep Vein Thrombosis: No Hx Renal Disease: No Hx Sickle Cell Disease: No Hx Seizures: No Hx Psychiatric Treatment: Yes (Depression) Hx Asthma: Yes Hx COPD: No Hx HIV: No Additional medical history: Implanon implant Apr 14, 2011 - Surgical History Hx Appendectomy: Yes Additional Surgical History: , Removal of implanon 05-19-2014 - Social History Smoking Status: Never Smoker Substance Use Type: None - Medications Home Medications: Home Medications Medication Instructions Recorded Confirmed Last Taken Type Vit No.130/Iron/Folic 1 each PO QDAY #30 tablet 01/23/16 09/08/16 1 Day Ago Rx [ Tablet] ~08/19/16 Ferrous Sulfate [Feosol 325 MG tab] 325 mg PO BID #60 tablet 09/07/16 Unknown Rx HYDROcodone/APAP 5-325 [[place] 1 each PO Q6HR PRN #30 tablet 09/07/16 Unknown Rx 5/325] Ibuprofen [Motrin] 800 mg PO Q8HR PRN #30 tablet 09/07/16 Unknown Rx Vit Calc,Iron,Folic 1 each PO DAILY #30 tablet 09/07/16 Unknown Rx [ Vitamins] Benzonatate [Tessalon Perles] 100 mg PO Q8HR PRN #30 capsule 06/25/19 Unknown Rx DOXYCYCLINE Hyclate [Vibramycin 100 mg PO Q12HR #14 capsule 06/25/19 Unknown Rx CAP] Fluticasone [Flonase] 1 spray NS QDAY #1 bottle 06/25/19 Unknown Rx Minor Respiratory Exam - Exam General: Vital signs noted. No distress. Alert and acting appropriately. Morbidly obese. HEENT: Yes Pharyngeal Erythema (erythematous posterior pharynx, uvula midline), Yes Moist Mucous Membranes, Yes Rhinorrhea (turbinates congested with clear discharge), Yes Frontal Tenderness, No Pharyngeal Exudates, No Conjuctival I njection, No Maxillary Tenderness Ear: Neither TM Bulge, Neither TM Erythema, Neither EAC Pain, Neither EAC Discharge Neck: Yes Supple, No Adenopathy Lungs: Yes Good Air Exchange, No Wheezes, No [place], No Stridor, No Cough, No Labored Respirations, No Retractions, No Use of Accessory Muscles, No Other Abnormal Lung Sounds Heart: Yes Regular, No Murmur Abdomen: Yes Normal Bowel Sounds, No Tenderness, No Peritoneal Signs Skin: No Rash, No Edema Neurologic: Alert and oriented, no deficits. Musculoskeletal: Unremarkable. ED Course Vital Signs 06/25/19 13:09 Temperature 99.1 F Pulse Rate 94 H Respiratory 17 Rate Blood Pressure 148/88 O2 Sat by Pulse 100 Oximetry ED Medical Decision Making - Radiology Data Radiology results: report reviewed - Medical Decision Making Vitals are stable inpatient in no acute distress. Chest x-ray obtained in dictated by radiologist with no acute cardiopulmonary findings. TTP of frontal sinuses and mild congestion on exam. Negative hot potato voice, no uvular deviation, no history of dysphagia, Low suspicion for pneumonia given exam and history. Centor negative and without pharyngeal exudate. No respiratory distress. Sinusitis. Start doxycycline, flonase, and Tessalon Perles. Follow up with PMD and strict return precautions discussed. Patient discharged home stable. Critical care attestation.: If time is entered above; I have spent that time in minutes in the direct care of this critically ill patient, excluding procedure time. ED Disposition Clinical Impression: Cough, Congestion of nasal sinus Sinusitis Qualifiers: Sinusitis location: frontal Chronicity: acute Recurrence: non-recurrent Qu alified Code(s): J01.10 - Acute frontal sinusitis, unspecified Disposition: - TO HOME OR SELFCARE Is pt being admited?: No Condition: Stable Instructions: Sinusitis (ED) Additional Instructions: Use warm moist compresses over sinuses. Use ibuprofen or Tylenol for pain. Use nasal saline spray. Avoid taking antihistamines. Follow up with Primary Care Provider if fever, short of breath, chest pain, or symptoms do not improve as discussed. Prescriptions: Fluticasone [Flonase] 1 spray NS QDAY #1 bottle Benzonatate [Tessalon Perles] 100 mg PO Q8HR PRN #30 capsule PRN Reason: Cough DOXYCYCLINE Hyclate [Vibramycin CAP] 100 mg PO Q12HR #14 capsule Referrals: KIM RUIZ MD [Staff Physician] - 3-5 Days FRANKIE BRICENO MD [Staff Physician] - 3-5 Days [facility] [Outside] - 3-5 Days Forms: Work/School Release Form(ED) Time of Disposition: 16:12
[2019-06-25 16:37] VITALS: BP 136/84
== END 2019-06-25 16:25 | disposition home or self-care (01) ==
LOC: ED 11:36
DX: J32.9 Chronic sinusitis, unspecified (principal); I10 Essential (primary) hypertension; J45.909 Unspecified asthma, uncomplicated; Z79.899 Other long term (current) drug therapy; Z88.0 Allergy status to penicillin
CPT/HCPCS: 71046

== ENCOUNTER 2019-07-21 12:58 | Emergency (ER) | payer MEDICAID ==
--- NOTE | 2019-07-21 13:50 | Event Note ---
ED Screening Note ED Screening Note: left ankle pain and left foot pain states she rolled her ankle and heard a popping sensation states it occurred yesterday edema over the left lateral malleolus with point bony TTP she has pain with ambulation PMHx asthma allergy: PCN LNMP: last week This initial assessment/diagnostic orders/clinical plan/treatment(s) is/are subject to change based on patients health status, clinical progression and re- assessment by fellow clinical providers in the ED. Further treatment and workup at subsequent clinical providers discretion. Patient/guardian urged not to elope from the ED as their condition may be serious if not clinically assessed and managed. Initial orders include: xr left ankle & foot
--- NOTE | 2019-07-21 15:31 | XRay Report ---
LEFT FOOT 3 VIEWS INDICATION / CLINICAL INFORMATION: left foot pain COMPARISON: None available. FINDINGS: BONES / JOINT(S): No acute fracture or subluxation. Moderate calcaneal spurring. SOFT TISSUES: No significant abnormality. ADDITIONAL FINDINGS: None. Signer Name: Iker Woodard MD Signed: 07/21/2019 3:27 PM Workstation Name: [id number]
--- NOTE | 2019-07-21 15:32 | XRay Report ---
LEFT ANKLE 4 VIEWS INDICATION / CLINICAL INFORMATION: left ankle pain s/p twisting and popping sensation COMPARISON: None available. FINDINGS: BONES / JOINT(S): Tiny avulsion along the inferior aspect of the medial malleolus. Moderate calcaneal spurring SOFT TISSUES: Soft tissue swelling localized to the medial malleolus. ADDITIONAL FINDINGS: None. Signer Name: Iker Woodard MD Signed: 07/21/2019 3:28 PM Workstation Name: [id number]
[2019-07-21] MEDS ORDERED: KETOROLAC 60 MG/2 ML INJ IM ONE (16:50)
[2019-07-21] MEDS ORDERED: traMADol 50 MG TAB PO ONE (16:50)
--- NOTE | 2019-07-21 17:21 | Emergency Department Report ---
ED Extremity Problem HPI - General Chief complaint: Extremity Injury, Lower Stated complaint: LFT ANKLE/LFT LEG PAIN Time Seen by Provider: 07/21/19 13:47 Source: patient Mode of arrival: Ambulatory Limitations: No Limitations - History of Present Illness Initial comments: 29-year-old female presents to the hospital complaining of left ankle and foot pain after inversion injury did occur while at work yesterday. Patient complains of 9/10 pain to medial lateral ankle as well as dorsum of foot. Pain is with movement and palpation. Patient unable to bear full weight and has been walking the toes of the left foot. Severity scale (0 -10): 7 - Related Data Previous Rx's Medication Instructions Recorded Last Taken Type Vit No.130/Iron/Folic 1 each PO QDAY #30 tablet 01/23/16 1 Day Ago Rx [ Tablet] ~08/19/16 Ferrous Sulfate [Feosol 325 MG tab] 325 mg PO BID #60 tablet 09/07/16 Unknown Rx HYDROcodone/APAP 5-325 [[place] 1 each PO Q6HR PRN #30 tablet 09/07/16 Unknown Rx 5/325] Ibuprofen [Motrin] 800 mg PO Q8HR PRN #30 tablet 09/07/16 Unknown Rx Vit Calc,Iron,Folic 1 each PO DAILY #30 tablet 09/07/16 Unknown Rx [ Vitamins] Benzonatate [Tessalon Perles] 100 mg PO Q8HR PRN #30 capsule 06/25/19 Unknown Rx DOXYCYCLINE Hyclate [Vibramycin 100 mg PO Q12HR #14 capsule 06/25/19 Unknown Rx CAP] Fluticasone [Flonase] 1 spray NS QDAY #1 bottle 06/25/19 Unknown Rx Ibuprofen [Motrin] 800 mg PO Q8HR PRN #30 tablet 07/21/19 Unknown Rx traMADoL [Ultram 50 MG tab] 50 mg PO Q6HR PRN #20 tablet 07/21/19 Unknown Rx Allergies Allergy/AdvReac Type Severity Reaction Status Date / Time Penicillins Allergy Rash Verified 09/23/15 11:22 ED Review of Systems ROS: Stated complaint: LFT ANKLE/LFT LEG PAIN Other details as noted in HPI ED Past Medical Hx - Past Medical History Previous Medical History?: Yes Hx Hypertension: Yes (PIH) Hx Congestive Heart Failure: No Hx Diabetes: No Hx Deep Vein Thrombosis: No Hx Renal Disease: No Hx Sickle Cell Disease: No Hx Seizures: No Hx Psychiatric Treatment: Yes (Depression) Hx Asthma: Yes Hx COPD: No Hx HIV: No Additional medical history: Implanon implant Apr 14, 2011 - Surgical History Past Surgical History?: Yes Hx Appendectomy: Yes Additional Surgical History: , Removal of implanon 05-19-2014 - Social History Smoking Status: Never Smoker Substance Use Type: None - Medications Home Medications: Home Medications Medication Instructions Recorded Confirmed Last Taken Type Vit No.130/Iron/Folic 1 each PO QDAY #30 tablet 01/23/16 09/08/16 1 Day Ago Rx [ Tablet] ~08/19/16 Ferrous Sulfate [Feosol 325 MG tab] 325 mg PO BID #60 tablet 09/07/16 Unknown Rx HYDROcodone/APAP 5-325 [[place] 1 each PO Q6HR PRN #30 tablet 09/07/16 Unknown Rx 5/325] Ibuprofen [Motrin] 800 mg PO Q8HR PRN #30 tablet 09/07/16 Unknown Rx Vit Calc,Iron,Folic 1 each PO DAILY #30 tablet 09/07/16 Unknown Rx [ Vitamins] Benzonatate [Tessalon Perles] 100 mg PO Q8HR PRN #30 capsule 06/25/19 Unknown Rx DOXYCYCLINE Hyclate [Vibramycin 100 mg PO Q12HR #14 capsule 06/25/19 Unknown Rx CAP] Fluticasone [Flonase] 1 spray NS QDAY #1 bottle 06/25/19 Unknown Rx Ibuprofen [Motrin] 800 mg PO Q8HR PRN #30 tablet 07/21/19 Unknown Rx traMADoL [Ultram 50 MG tab] 50 mg PO Q6HR PRN #20 tablet 07/21/19 Unknown Rx ED Physical Exam - General Limitations: No Limitations - Other Other exam information: General: No limitations, patient is alert in no acute distress Head exam: Atraumatic, normocephalic Eyes exam: Normal appearance ENT: Moist mucous membrane Neck exam: Normal inspection, full range of motion Respiratory exam: Clear to auscultation bilateral, no wheezes, rales, crackles Cardiovascular: Normal rate and rhythm Abdomen: Soft, nondistended, and nontender, with normal bowel sounds, no rebound, or guarding Extremity: Diffuse swelling to left ankle and foot. Bilateral malleoli pain and pain to the dorsum of the foot. 2+ DP pulse Back: Normal Inspection, no CVA tenderness Neurologic: Alert, oriented x3, speech clear, no gross motor or sensory deficit Psychiatric: Normal mood, affect Skin: No rash ED Course Vital Signs 07/21/19 07/21/19 13:50 19:43 Temperature 98.3 F 98 F Pulse Rate 89 78 Respiratory 20 18 Rate Blood Pressure 153/90 Blood Pressure 132/86 [Left] O2 Sat by Pulse 98 100 Oximetry ED Medical Decision Making - Radiology Data Radiology results: report reviewed LEFT ANKLE 4 VIEWS INDICATION / CLINICAL INFORMATION: left ankle pain s/p twisting and popping sensation COMPARISON: None available. FINDINGS: BONES / JOINT(S): Tiny avulsion along the inferior aspect of the medial malleolus. Moderate calcaneal spurring SOFT TISSUES: Soft tissue swelling localized to the medial malleolus. ADDITIONAL FINDINGS: None. LEFT FOOT 3 VIEWS INDICATION / CLINICAL INFORMATION: left foot pain COMPARISON: None available. FINDINGS: BONES / JOINT(S): No acute fracture or subluxation. Moderate calcaneal spurring. SOFT TISSUES: No significant abnormality. ADDITIONAL FINDINGS: None. - Medical Decision Making Patient placed in the left posterior ankle splint and provided crutches with teaching. Pain medicine prescribed. Orthopedic follow-up advised - Differential Diagnosis fracture, contusion, sprain Critical Care Time: No Critical care attestation.: If time is entered above; I have spent that time in minutes in the direct care of this critically ill patient, excluding procedure time. ED Disposition Clinical Impression: Medial malleolar fracture Disposition: DC- TO HOME OR SELFCARE Is pt being admited?: No Does the pt Need Aspirin: No Condition: Stable Instructions: Ankle Fracture (ED) Additional Instructions: Take the medication as prescribed. Follow-up with your doctor or the clinic/doctor provided. Return is symptoms worsen as indicated by the discharge instructions. Prescriptions: Ibuprofen [Motrin] 800 mg PO Q8HR PRN #30 tablet PRN Reason: Pain, Moderate (4-6) traMADoL [Ultram 50 MG tab] 50 mg PO Q6HR PRN #20 tablet PRN Reason: Pain Referrals: PRIMARY CAREMD [Primary Care Provider] - 3-5 Days LEONOR JAY MD [Staff Physician] - 3-5 Days (orthopedic doctor ) Forms: Work/School Release Form(ED) Time of Disposition: 19:28
[2019-07-21 20:10] VITALS: BP 132/86
== END 2019-07-21 20:00 | disposition home or self-care (01) ==
LOC: ED 12:58
DX: S82.55XA Nondisplaced fracture of medial malleolus of left tibia, initial encounter for closed fracture (principal); I10 Essential (primary) hypertension; F32.89 Other specified depressive episodes; J45.909 Unspecified asthma, uncomplicated; Z90.49 Acquired absence of other specified parts of digestive tract; Z98.890 Other specified postprocedural states; Z88.0 Allergy status to penicillin; Z79.899 Other long term (current) drug therapy; X58.XXXA Exposure to other specified factors, initial encounter; Y93.9 Activity, unspecified; Y92.89 Other specified places as the place of occurrence of the external cause; Y99.8 Other external cause status
CPT/HCPCS: 29515; 73610; 73630; 96372; 99283; J1885

== ENCOUNTER 2019-09-05 18:43 | Emergency (ER) | payer MEDICAID ==
[2019-09-05 18:55] VITALS: BP 156/98
[2019-09-05 19:48] LABS: Basophils # (Auto) 0.1 K/mm3 (0.0-0.1); Basophils % (Auto) 0.6 % (0.0-1.8); Eosinophils # (Auto) 0.3 K/mm3 (0.0-0.4); Eosinophils % (Auto) 2.8 % (0.0-4.3); Hemoglobin 12.7 gm/dl (10.1-14.3); Lymphocytes # (Auto) 2.6 K/mm3 (1.2-5.4); Lymphocytes % (Auto) 21.1 % (13.4-35.0); Mean Corpuscular HGB Conc 33 % (30-34); Mean Corpuscular Volume 84 fl (79-97); Monocytes # (Auto) 0.5 K/mm3 (0.0-0.8); Monocytes % (Auto) 4.1 % (0.0-7.3); Platelet Count 294 K/mm3 (140-440); Red Blood Count 4.53 M/mm3 (3.65-5.03); Red Cell Distribution Width 13.9 % (13.2-15.2)
[2019-09-05 19:48] LABS: Bacteria,Urine 1+ /HPF (Negative); Bilirubin,Urine NEG (Negative); Blood,Urine LG (Negative); Color,Urine Yellow (Yellow); Mucus,Urine FEW /HPF; Protein,Urine <15 mg/dL mg/dL (Negative); Urobilinogen,Urine < 2.0 mg/dL (<2.0)
[2019-09-05 20:05] LABS: BUN/Creatinine Ratio 18; Blood Urea Nitrogen 11 mg/dL (7-17); Calcium 9.6 mg/dL (8.4-10.2); Hemolysis Index 6
--- NOTE | 2019-09-05 22:27 | Emergency Department Report ---
ED HPI - General Chief complaint: Abdominal Pain Stated complaint: P WKS PREG, BLEEDING AND HEADACHE Time Seen by Provider: 09/05/19 22:11 Source: patient Mode of arrival: Ambulatory Limitations: No Limitations - History of Present Illness Initial comments: Patient is a 29-year-old female that presents emergency room with complaints of vaginal bleeding and abdominal cramping. Patient states that the symptoms started yesterday. Patient states that he found out 2 weeks ago at another local ER was . Patient states she had an ultrasound which showed an IUP. Patient states her cramps are a 2 out of 10. Patient states they are bet ter with rest and worse with movement. Patient states the bleeding is worsening. Patient is a G4, P2. Patient states she is Rh+. Patient states she is never received RhoGam with any of her pregnancies. Patient also complains of a headache. Patient states her headache when she originally got it was a 9 out of 10. Patient states now is a 1 out of 10. Patient states her headache is better with rest and worse with movement. Patient denies neck stiffness. Patient denies fever and chills. Patient denies blurry vision. . Patient states she had chest pain when she first arrived but her chest pain has resolved. Patient that her chest pain is 0 out of 10. Patient states her chest pain is unchanged by movement or exertion. Patient denies shortness of breath. Patient denies cough. Patient denies recent travel. Patient denies recent international travel. Patient denies exposure to the novel coronavirus. Patient denies sick contacts. Patient denies fever and chills. Patient denies cough. Patient denies diarrhea. Patient denies coming in contact with anybody with symptoms of the novel coronavirus. MD Complaint: vaginal bleeding -: Sudden Location: abdomen Severity: mild Quality: cramping Consistency: intermittent Improves with: rest Worsens with: movement Vaginal bleeding: heavy :: Yes OB History - Current : no complications OB History - Previous Pregnancies: preeclampsia, hyperemesis, gestational diabetes, miscarriage Pre- care: previous ultrasound confi - Related Data : 4 Para: 2 Previous Rx's Medication Instructions Recorded Last Taken Type Vit No.130/Iron/Folic 1 each PO QDAY #30 tablet 01/23/16 1 Day Ago Rx [ Tablet] ~08/19/16 Ferrous Sulfate [Feosol 325 MG tab] 325 mg PO BID #60 tablet 09/07/16 Unknown Rx HYDROcodone/APAP 5-325 [[place] 1 each PO Q6HR PRN #30 tablet 09/07/16 Unknown Rx 5/325] Ibuprofen [Motrin] 800 mg PO Q8HR PRN #30 tablet 09/07/16 Unknown Rx Vit Calc,Iron,Folic 1 each PO DAILY #30 tablet 09/07/16 Unknown Rx [ Vitamins] Benzonatate [Tessalon Perles] 100 mg PO Q8HR PRN #30 capsule 06/25/19 Unknown Rx DOXYCYCLINE Hyclate [Vibramycin 100 mg PO Q12HR #14 capsule 06/25/19 Unknown Rx CAP] Fluticasone [Flonase] 1 spray NS QDAY #1 bottle 06/25/19 Unknown Rx Ibuprofen [Motrin 800 MG tab] 800 mg PO Q8HR PRN #30 tablet 09/06/19 Unknown Rx traMADoL [Ultram 50 MG tab] 50 mg PO Q6HR PRN #10 tablet 09/06/19 Unknown Rx Allergies Allergy/AdvReac Type Severity Reaction Status Date / Time Penicillins Allergy Rash Verified 09/05/19 18:48 ED Review of Systems ROS: Stated complaint: P WKS PREG, BLEEDING AND HEADACHE Other details as noted in HPI Constitutional: denies: chills, fever Eyes: denies: eye pain, eye discharge, vision change ENT: denies: ear pain, throat pain Respiratory: denies: cough, shortness of breath, wheezing Cardiovascular: as per HPI. denies: palpitations Endocrine: no symptoms reported Gastrointestinal: denies: abdominal pain, nausea, diarrhea Genitourinary: as per HPI. denies: urgency, dysuria, discharge Musculoskeletal: denies: back pain, joint swelling, arthralgia Skin: denies: rash, lesions Neurological: headache. denies: weakness, paresthesias Psychiatric: denies: anxiety, depression Hematological/Lymphatic: denies: easy bleeding, easy bruising ED Past Medical Hx - Past Medical History Previous Medical History?: Yes Hx Hypertension: Yes (PIH) Hx Congestive Heart Failure: No Hx Diabetes: No Hx Deep Vein Thrombosis: No Hx Renal Disease: No Hx Sickle Cell Disease: No Hx Seizures: No Hx Psychiatric Treatment: Yes (Depression) Hx Asthma: Yes Hx COPD: No Hx HIV: No Additional medical history: Implanon implant Apr 14, 2011 - Surgical History Past Surgical History?: Yes Hx Appendectomy: Yes Additional Surgical History: , Removal of implanon 05-19-2014 - Family History Family history: no significant - Social History Smoking Status: Never Smoker Substance Use Type: None - Medications Home Medications: Home Medications Medication Instructions Recorded Confirmed Last Taken Type Vit No.130/Iron/Folic 1 each PO QDAY #30 tablet 01/23/16 09/08/16 1 Day Ago Rx [ Tablet] ~08/19/16 Ferrous Sulfate [Feosol 325 MG tab] 325 mg PO BID #60 tablet 09/07/16 Unknown Rx HYDROcodone/APAP 5-325 [[place] 1 each PO Q6HR PRN #30 tablet 09/07/16 Unknown Rx 5/325] Ibuprofen [Motrin] 800 mg PO Q8HR PRN #30 tablet 09/07/16 Unknown Rx Vit Calc,Iron,Folic 1 each PO DAILY #30 tablet 09/07/16 Unknown Rx [ Vitamins] Benzonatate [Tessalon Perles] 100 mg PO Q8HR PRN #30 capsule 06/25/19 Unknown Rx DOXYCYCLINE Hyclate [Vibramycin 100 mg PO Q12HR #14 capsule 06/25/19 Unknown Rx CAP] Fluticasone [Flonase] 1 spray NS QDAY #1 bottle 06/25/19 Unknown Rx Ibuprofen [Motrin 800 MG tab] 800 mg PO Q8HR PRN #30 tablet 09/06/19 Unknown Rx traMADoL [Ultram 50 MG tab] 50 mg PO Q6HR PRN #10 tablet 09/06/19 Unknown Rx ED Physical Exam - General Limitations: No Limitations General appearance: alert, in no apparent distress, obese - Head Head exam: Present: atraumatic, normocephalic - Eye Eye exam: Present: normal appearance, PERRL Pupils: Present: normal accommodation - ENT ENT exam: Present: mucous membranes moist - Neck Neck exam: Present: normal inspection - Respiratory Respiratory exam: Present: normal lung sounds bilaterally, chest wall tenderness. Absent: respiratory distress, wheezes, rales, rhonchi, stridor, accessory muscle use, decreased breath sounds, prolonged expiratory - Cardiovascular Cardiovascular Exam: Present: regular rate, normal rhythm. Absent: systolic murmur, diastolic murmur, rubs, gallop - GI/Abdominal GI/Abdominal exam: Present: soft, normal bowel sounds. Absent: distended, tenderness, guarding - Rectal Rectal exam: Present: deferred - Extremities Exam Extremities exam: Present: normal inspection - Back Exam Back exam: Present: normal inspection - Neurological Exam Neurological exam: Present: alert, oriented X3 - Psychiatric Psychiatric exam: Present: normal affect, normal mood - Skin Skin exam: Present: warm, dry, intact, normal color. Absent: rash ED Course Vital Signs 09/05/19 09/06/19 18:53 00:25 Temperature 98.6 F Pulse Rate 92 H 99 H Respiratory 17 20 Rate Blood Pressure 156/98 O2 Sat by Pulse 98 98 Oximetry - Reevaluation(s) Reevaluation #1: I discussed all results and clinical findings with patient. I discussed plan of care with patient. Patient agrees with plan of care. Patient is stable for discharge. Patient will be discharged home. Patient given discharge instructions. Patient voiced understanding of discharge instructions. 09/06/19 00:07 ED Medical Decision Making - Lab Data Result diagrams: 09/05/19 19:14 09/05/19 19:14 - Radiology Data Radiology results: report reviewed ULTRASOUND OBSTETRIC INDICATION / CLINICAL INFORMATION: Vaginal bleeding. Passing blood clots. Clinical Gestational Age (GA): Unknown weeks.days TECHNIQUE: Transabdominal. COMPARISON: None available. FINDINGS: No intrauterine identified. Endometrial complex measures 0.9 cm in t hickness. ADNEXA: Not well seen. FREE FLUID: None. ADDITIONAL FINDINGS: None. IMPRESSION: 1. No intrauterine identified. Clinical and laboratory correlation is recommended. - Medical Decision Making Patient is a 29-year-old female that presents emergency room with complaints of vaginal bleeding and abdominal cramping. Patient had a confirmed and had a ultrasound to confirming IUP. Patient also complained of headache and chest pain. Patient's headache had improved prior to initial evaluation. Patient's chest pain had resolved prior to initial evaluation. Patient's labs unremarkable except for negative hCG. Patient had a transvaginal ultrasound which showed no intrauterine . Patient's clinical findings are consist ent with a spontaneous miscarriage and complete . Patient stable for discharge. Patient given discharge instructions. - Differential Diagnosis Vaginal bleeding, cramping, miscarriage headache Critical care attestation.: If time is entered above; I have spent that time in minutes in the direct care of this critically ill patient, excluding procedure time. ED Disposition Clinical Impression: Vaginal bleeding, Abdominal cramping, Miscarriage Headache Qualifiers: Headache type: unspecified Headache chronicity pattern: acute headache Intractability: not intractable Qualified Code(s): R51 - Headache Disposition: DC- TO HOME OR SELFCARE Is pt being admited?: Yes Does the pt Need Aspirin: No Condition: Critical Instructions: Spontaneous Miscarriage (ED), Abdominal Pain (ED) Additional Instructions: Patient to follow-up with primary care in 2 to 3 days. Patient to follow-up with SCREW MACHINE OPERATOR in 2 to 3 days. Patient to rest. Patient to increase water. Patient to avoid strenuous exercise or heavy lifting until cleared by SCREW MACHINE OPERATOR. Patient to take Tylenol or ibuprofen as needed pain. Patient to take meds as directed. Patient to return to the ER if condition worsens, changes or new symptoms arise. Patient started vitamin. Patient to avoid anything per vagina until cleared by SCREW MACHINE OPERATOR. Prescriptions: Ibuprofen [Motrin 800 MG tab] 800 mg PO Q8HR PRN #30 tablet PRN Reason: Pain, Moderate (4-6) traMADoL [Ultram 50 MG tab] 50 mg PO Q6HR PRN #10 tablet PRN Reason: Pain Referrals: PRIMARY CAREMD [Primary Care Provider] - 2-3 Days KAYE NANCE MD [Staff Physician] - 2-3 Days Time of Disposition: 00:06
--- NOTE | 2019-09-05 23:35 | Ultrasound Report ---
ULTRASOUND OBSTETRIC INDICATION / CLINICAL INFORMATION: Vaginal bleeding. Passing blood clots. Clinical Gestational Age (GA): Unknown weeks.days TECHNIQUE: Transabdominal. COMPARISON: None available. FINDINGS: No intrauterine identified. Endometrial complex measures 0.9 cm in thickness. ADNEXA: Not well seen. FREE FLUID: None. ADDITIONAL FINDINGS: None. IMPRESSION: 1. No intrauterine identified. Clinical and laboratory correlation is recommended. Signer Name: Vinod Edmond MD Signed: 09/05/2019 11:30 PM Workstation Name: [id number]
== END 2019-09-06 00:24 | disposition home or self-care (01) ==
LOC: ED 18:43
DX: O03.9 Complete or unspecified spontaneous abortion without complication (principal); R51 Headache; R07.89 Other chest pain
CPT/HCPCS: 36415; 76801; 80048; 81001; 84702; 85025; 99284

== ENCOUNTER 2019-11-28 18:57 | Emergency (ER) | payer MEDICAID ==
--- NOTE | 2019-11-28 19:12 | Event Note ---
ED Screening Note Date of service: 11/28/19 Time: 19:10 ED Screening Note: This is a 29-year-old female who presents with shortness of breath and coughing times couple days. Patient states she was just exposed to a cough cold with positive patient. This initial assessment/diagnostic orders/clinical plan/treatment(s) is/are subject to change based on patients health status, clinical progression and re- assessment by fellow clinical providers in the ED. Further treatment and workup at subsequent clinical providers discretion. Patient/guardian urged not to elope from the ED as their condition may be serious if not clinically assessed and managed. Initial orders include: cxr,ekg
--- NOTE | 2019-11-28 21:33 | Emergency Department Report ---
ED Fever HPI - General Chief Complaint: Dyspnea/Respdistress Stated Complaint: SOB/CHEST PAIN PUI?: No Time Seen by Provider: 11/28/19 21:30 Source: patient Exam Limitations: no limitations - History of Present Illness Initial Comments: Patient is a 29-year-old female that presents emergency room with complaints of chest pain, shortness of breath, cough, fever and nausea. Patient states her symptoms started 3 days ago. Patient states she had a positive exposure to COVID. Patient states that her fever was 100.6. Patient states that her chest pain is worse with deep breath, palpation and movement. Patient states her chest pain is better with rest. Patient states her shortness of breath is better with rest and worse with exertion. Patient states her cough is dry. Patient states her chest pain is an 8 out of 10. Patient states it is nonra diating. Patient states the pain is in her bilateral chest. Fever Severity/Quality: low grade, greater than 100.5 F Fever Therapy ACQUISITIONS LOGISTICS ANALYST: Tylenol Associated Symptoms: chest pain, cough, muscle aches, shortness of breath. denies: abdominal pain, confusion, diaphoresis, headache, rash, sore throat, stiff neck, syncope, weakness ED Review of Systems ROS: Stated complaint: SOB/CHEST PAIN Other details as noted in HPI Constitutional: chills, fever Eyes: denies: eye pain, eye discharge, vision change ENT: denies: ear pain, throat pain Respiratory: cough, shortness of breath. denies: wheezing Cardiovascular: chest pain. denies: palpitations Endocrine: no symptoms reported Gastrointestinal: nausea. denies: abdominal pain, diarrhea Genitourinary: denies: urgency, dysuria, discharge Musculoskeletal: denies: back pain, joint swelling, arthralgia Skin: denies: rash, lesions Neurological: denies: headache, weakness, paresthesias Psychiatric: denies: anxiety, depression Hematological/Lymphatic: denies: easy bleeding, easy bruising ED Past Medical Hx - Past Medical History Previous Medical History?: Yes Hx Hypertension: Yes (PIH) Hx Congestive Heart Failure: No Hx Diabetes: No Hx Deep Vein Thrombosis: No Hx Renal Disease: No Hx Sickle Cell Disease: No Hx Seizures: No Hx Psychiatric Treatment: Yes (Depression) Hx Asthma: Yes Hx COPD: No Hx HIV: No Additional medical history: Implanon implant Apr 14, 2011 - Surgical History Past Surgical History?: Yes Hx Appendectomy: Yes Additional Surgical History: , Removal of implanon 05-19-2014 - Family History Family history: no significant - Social History Smoking Status: Never Smoker Substance Use Type: None - Medications Home Medications: Home Medications Medication Instructions Recorded Confirmed Last Taken Type Vit No.130/Iron/Folic 1 each PO QDAY #30 tablet 01/23/16 09/08/16 1 Day Ago Rx [ Tablet] ~08/19/16 Ferrous Sulfate [Feosol 325 MG tab] 325 mg PO BID #60 tablet 09/07/16 Unknown Rx HYDROcodone/APAP 5-325 [[place] 1 each PO Q6HR PRN #30 tablet 09/07/16 Unknown Rx 5/325] Vit Calc,Iron,Folic 1 each PO DAILY #30 tablet 09/07/16 Unknown Rx [ Vitamins] Benzonatate [Tessalon Perles] 100 mg PO Q8HR PRN #30 capsule 06/25/19 Unknown Rx DOXYCYCLINE Hyclate [Vibramycin 100 mg PO Q12HR #14 capsule 06/25/19 Unknown Rx CAP] Fluticasone [Flonase] 1 spray NS QDAY #1 bottle 06/25/19 Unknown Rx Ibuprofen [Motrin 800 MG tab] 800 mg PO Q8HR PRN #30 tablet 09/06/19 Unknown Rx traMADoL [Ultram 50 MG tab] 50 mg PO Q6HR PRN #10 tablet 09/06/19 Unknown Rx Ibuprofen [Motrin 800 MG tab] 800 mg PO Q8HR PRN #20 tablet 10/22/19 Unknown Rx ED Physical Exam - General Limitations: No Limitations General appearance: alert, in no apparent distress - Head Head exam: Present: atraumatic, normocephalic - Eye Eye exam: Present: normal appearance - ENT ENT exam: Present: mucous membranes moist - Neck Neck exam: Present: normal inspection - Respiratory Respiratory exam: Present: normal lung sounds bilaterally, chest wall ten derness. Absent: respiratory distress, wheezes, rales - Cardiovascular Cardiovascular Exam: Present: regular rate, normal rhythm. Absent: systolic murmur, diastolic murmur, rubs, gallop - GI/Abdominal GI/Abdominal exam: Present: soft, normal bowel sounds - Extremities Exam Extremities exam: Present: normal inspection - Back Exam Back exam: Present: normal inspection - Neurological Exam Neurological exam: Present: alert, oriented X3 - Psychiatric Psychiatric exam: Present: normal affect, normal mood - Skin Skin exam: Present: warm, dry, intact, normal color. Absent: rash ED Course Vital Signs 11/28/19 19:10 Temperature 98.4 F Pulse Rate 87 Respiratory 20 Rate Blood Pressure 174/110 O2 Sat by Pulse 99 Oximetry - Reevaluation(s) Reevaluation #1: I discussed all results and clinical findings with patient. I discussed plan of care with patient. Patient agrees with plan of care. Patient is stable for discharge. Patient will be discharged home. Patient given discharge instructions. Patient voiced understanding of discharge instructions. 11/28/19 23:05 ED Medical Decision Making - Lab Data Result diagrams: 11/28/19 21:37 11/28/19 21:37 - EKG Data -: EKG Interpreted by Me EKG shows normal: sinus rhythm, axis, intervals, QRS complexes, ST-T waves Rate: normal - Radiology Data Radiology results: image reviewed interpreted by me: No acute findings on chest x-ray. - Medical Decision Making Patient is a 29-year-old female that presents emergency room with complaints of cough, fever, body aches, shortness of breath, chest pain and a possible cold exposure. Patient symptoms are consistent with COVID-19. Patient instructed to self quarantine and follow-up with health department. Patient given discharge instructions. Patient's labs were done and were essentially unremarkable. Patient chest x-ray is negative for acute findings. Patient stable for discharge. Patient discharged home. - Differential Diagnosis COVID, URI, cough, shortness of breath, chest pain, nausea Critical care attestation.: If time is entered above; I have spent that time in minutes in the direct care of this critically ill patient, excluding procedure time. ED Disposition Clinical Impression: Suspected COVID-19 virus infection, Cough, SOB (shortness of breath) Fever Qualifiers: Fever type: unspecified Qualified Code(s): R50.9 - Fever, unspecified Chest pain Qualifiers: Chest pain type: unspecified Qualified Code(s): R07.9 - Chest pain, unspecified Disposition: DC-01 TO HOME OR SELFCARE Is pt being admited?: No Does the pt Need Aspirin: No Condition: Stable Instructions: COVID-19, Chest Pain (ED), Dyspnea (ED) Additional Instructions: Patient to follow-up with the health department. Patient to obtain further COVID testing. Patient to self quarantine for 14 days. Patient to follow-up with primary care in 2 to 3 days. Patient to increase vitamin C intake. Patient to rest. Patient to increase water. Patient to avoid strenuous exercise or heavy lifting until cleared by GENERAL CAR YARD SUPERVISOR. Patient to take Tylenol as needed for pain. Patient to return to the ER if condition worsens, changes or new symptoms arise. Referrals: PRIMARY CARE, [Primary Care Provider] - 2-3 Days Time of Disposition: 22:59
[2019-11-28 21:52] LABS: Basophils # (Auto) 0.1 K/mm3 (0.0-0.1); Basophils % (Auto) 0.9 % (0.0-1.8); Eosinophils # (Auto) 0.4 K/mm3 (0.0-0.4); Eosinophils % (Auto) 4.4 % (0.0-4.3); Hematocrit 40.1 % (30.3-42.9); Hemoglobin 13.5 gm/dl (10.1-14.3); Mean Corpuscular HGB Conc 34 % (30-34); Mean Corpuscular Volume 84 fl (79-97); Monocytes # (Auto) 0.5 K/mm3 (0.0-0.8); Monocytes % (Auto) 6.5 % (0.0-7.3); Platelet Count 304 K/mm3 (140-440); Red Blood Count 4.79 M/mm3 (3.65-5.03); Red Cell Distribution Width 13.5 % (13.2-15.2)
[2019-11-28 22:15] LABS: Alanine Aminotransferase 32 units/L (7-56); Albumin 4.4 g/dL (3.9-5); BUN/Creatinine Ratio 15; Blood Urea Nitrogen 9 mg/dL (7-17); Calcium 9.4 mg/dL (8.4-10.2); Hemolysis Index 3
[2019-11-29 02:11] VITALS: BP 163/98
--- NOTE | 2019-12-02 17:00 | XRay Report ---
CHEST 2 VIEWS INDICATION: SOB. COMPARISON: 10/22/2019 FINDINGS: SUPPORT DEVICES: None. HEART: Within normal limits. LUNGS/PLEURA: No acute air space or interstitial disease. No pneumothorax. ADDITIONAL FINDINGS: None. IMPRESSION: 1. No acute findings. Signer Name: Geoffrey Vogel MD Signed: 11/28/2019 7:39 PM Workstation Name: [id number]
== END 2019-11-29 00:33 | disposition home or self-care (01) ==
LOC: ED 18:57
DX: R07.89 Other chest pain (principal); R05 Cough; R06.02 Shortness of breath; R50.9 Fever, unspecified; R11.0 Nausea; Z20.828 Contact with and (suspected) exposure to other viral communicable diseases
CPT/HCPCS: 36415; 71046; 80053; 85025; 87116; 87400; 87430; 93005

== ENCOUNTER 2020-01-29 14:49 | Emergency (ER) | payer MEDICAID ==
[2020-01-29 15:12] VITALS: BP 151/97
--- NOTE | 2020-01-29 16:39 | Event Note ---
ED Screening Note Date of service: 01/29/20 Time: 16:35 ED Screening Note: 29-year-old female who was evaluated here couple of days ago returns complaining of worsening abdominal pain leg worsening diarrhea. She states that her mother was just released from the hospital with a diagnosis of C. difficile and she thinks she may have C. difficile. Patient states she was unable to see her primary care physician until next week and after calling her primary care physician he told her to come into the ER. Refused report from last visit and CT scan which was normal. We will repeat labs today if no change patient will be IVF and possible follow- up with her primary care doctor Vital signs are normal. This initial assessment/diagnostic orders/clinical plan/treatment(s) is/are subject to change based on patients health status, clinical progression and re- assessment by fellow clinical providers in the ED. Further treatment and workup at subsequent clinical providers discretion. Patient/guardian urged not to elope from the ED as their condition may be serious if not clinically assessed and managed. Initial orders include: Labs, IVF, Zosyn?
[2020-01-29 18:26] LABS: Basophils # (Auto) 0.1 K/mm3 (0.0-0.1); Basophils % (Auto) 0.5 % (0.0-1.8); Eosinophils # (Auto) 0.3 K/mm3 (0.0-0.4); Eosinophils % (Auto) 2.2 % (0.0-4.3); Hematocrit 40.2 % (30.3-42.9); Hemoglobin 13.4 gm/dl (10.1-14.3); Lymphocytes # (Auto) 2.2 K/mm3 (1.2-5.4); Lymphocytes % (Auto) 17.9 % (13.4-35.0); Mean Corpuscular HGB Conc 33 % (30-34); Mean Corpuscular Volume 83 fl (79-97); Monocytes # (Auto) 0.4 K/mm3 (0.0-0.8); Monocytes % (Auto) 3.3 % (0.0-7.3); Platelet Count 316 K/mm3 (140-440); Red Blood Count 4.86 M/mm3 (3.65-5.03); Red Cell Distribution Width 13.8 % (13.2-15.2)
[2020-01-29 18:45] LABS: Alanine Aminotransferase 25 units/L (7-56); Blood Urea Nitrogen 12 mg/dL (7-17); Calcium 9.3 mg/dL (8.4-10.2); Hemolysis Index 17
[2020-01-29 18:51] LABS: BUN/Creatinine Ratio 20
[2020-01-29] MEDS ORDERED: SODIUM CHLORIDE 0.9% 1000 ML 1,000 ML IV ONE (19:14)
[2020-01-29] MEDS ORDERED: ONDANSETRON 4 MG/2 ML INJ IV ONE (19:14)
[2020-01-29] MEDS ORDERED: MORPHINE 4 MG/1 ML INJ IV ONE (19:14)
--- NOTE | 2020-01-29 19:55 | Emergency Department Report ---
ED Abdominal Pain HPI - General Chief Complaint: Abdominal Pain Stated Complaint: STOMACH PAIN Time Seen by Provider: 01/29/20 19:05 Source: patient Mode of arrival: Ambulatory Limitations: No Limitations - History of Present Illness Initial Comments: This is a 29-year-old female nontoxic, well nourished in appearance, no acute signs of distress presents to the ED with c/o of diarrhea, nausea and vomiting and abdominal pain several days. Stated mother was diagnosed with c-diff. Patient worsening since last week. Patient describes vomiting as food content and yellow gastric acid. Patient describes abdominal pain as cramping and aching with level of 8/10 diffuse. Patient denies chest pain, short of breath, fever, hemoptysis, blood in stool, chills, headache, stiff neck, numbness or tingling. Patient denies any constipation. Denies any blood in stool. Patient denies any recent travels. Patient stated allergies to PCN. MD Complaint: abdominal pain -: days(s) Location: diffuse Radiation: none Severity: moderate Severity scale (0 -10): 8 Quality: cramping, aching Consistency: constant Improves With: nothing Worsens With: nothing Associated Symptoms: nausea, vomiting, diarrhea. denies: fever, chills, constipation, dysuria, hematemesis, hematochezia, melena, hematuria, anorexia, syncope - Related Data Previous Rx's Medication Instructions Recorded Last Taken Type Vit No.130/Iron/Folic 1 each PO QDAY #30 tablet 01/23/16 1 Day Ago Rx [ Tablet] ~08/19/16 Ferrous Sulfate [Feosol 325 MG tab] 325 mg PO BID #60 tablet 09/07/16 Unknown Rx Vit Calc,Iron,Folic 1 each PO DAILY #30 tablet 09/07/16 Unknown Rx [ Vitamins] Fluticasone [Flonase] 1 spray NS QDAY #1 bottle 06/25/19 Unknown Rx Ibuprofen [Motrin 800 MG tab] 800 mg PO Q8HR PRN #30 tablet 09/06/19 Unknown Rx Ibuprofen [Motrin 800 MG tab] 800 mg PO Q8HR PRN #20 tablet 10/22/19 Unknown Rx Potassium Chloride [K-Dur] 20 meq PO QDAY #14 tablet 12/27/19 Unknown Rx Dicyclomine [Bentyl] 20 mg PO Q6H PRN #30 tablet 01/27/20 Unknown Rx Diphenoxylate/Atropine [Lomotil] 1 - 2 tab PO Q4H PRN #15 tablet 01/27/20 Unknown Rx Famotidine [Pepcid] 20 mg PO BID #60 tablet 01/27/20 Unknown Rx Ketorolac [Toradol] 10 mg PO Q8H PRN #20 tablet 01/27/20 Unknown Rx Ondansetron [Zofran Odt] 4 mg PO Q6HR PRN #20 tab.rapdis 01/27/20 Unknown Rx Acetaminophen/Codeine [Tylenol 1 tab PO Q6H PRN #12 tab 01/30/20 Unknown Rx /Codeine # 3 tab] Ciprofloxacin HCl [Ciprofloxacin 500 mg PO Q12HR #20 tab 01/30/20 Unknown Rx TAB] Ondansetron [Zofran Odt] 4 mg PO Q8HR PRN #12 tab.rapdis 01/30/20 Unknown Rx metroNIDAZOLE [Flagyl] 500 mg PO Q8HR #30 tablet 01/30/20 Unknown Rx Allergies Allergy/AdvReac Type Severity Reaction Status Date / Time Penicillins Allergy Rash Verified 10/22/19 18:16 morphine AdvReac Mild Itching Verified 01/29/20 20:44 ED Review of Systems ROS: Stated complaint: STOMACH PAIN Other details as noted in HPI Constitutional: denies: chills, fever Eyes: denies: eye pain, eye discharge, vision change ENT: denies: ear pain, throat pain Respiratory: denies: cough, shortness of breath, wheezing Cardiovascular: denies: chest pain, palpitations Endocrine: no symptoms reported Gastrointestinal: abdominal pain, nausea, vomiting, diarrhea. denies: constipation, hematemesis, melena, hematochezia Genitourinary: denies: urgency, dysuria, discharge Musculoskeletal: denies: back pain, joint swelling, arthralgia Skin: denies: rash, lesions Neurological: denies: headache, weakness, paresthesias Psychiatric: denies: anxiety, depression Hematological/Lymphatic: denies: easy bleeding, easy bruising ED Past Medical Hx - Past Medical History Hx Hypertension: Yes (PIH) Hx Congestive Heart Failure: No Hx Diabetes: No Hx Deep Vein Thrombosis: No Hx Renal Disease: No Hx Sickle Cell Disease: No Hx Seizures: No Hx Psychiatric Treatment: Yes (Depression) Hx Asthma: Yes Hx COPD: No Hx HIV: No Additional medical history: Implanon implant Apr 14, 2011, hypoglycemic, MORBID OBESITY - Surgical History Hx Appendectomy: Yes Additional Surgical History: , Removal of implanon 05-19-2014 - Social History Smoking Status: Never Smoker Substance Use Type: Alcohol - Medications Home Medications: Home Medications Medication Instructions Recorded Confirmed Last Taken Type Vit No.130/Iron/Folic 1 each PO QDAY #30 tablet 01/23/16 09/08/16 1 Day Ago Rx [ Tablet] ~08/19/16 Ferrous Sulfate [Feosol 325 MG tab] 325 mg PO BID #60 tablet 09/07/16 Unknown Rx Vit Calc,Iron,Folic 1 each PO DAILY #30 tablet 09/07/16 Unknown Rx [ Vitamins] Fluticasone [Flonase] 1 spray NS QDAY #1 bottle 06/25/19 Unknown Rx Ibuprofen [Motrin 800 MG tab] 800 mg PO Q8HR PRN #30 tablet 09/06/19 Unknown Rx Ibuprofen [Motrin 800 MG tab] 800 mg PO Q8HR PRN #20 tablet 10/22/19 Unknown Rx Potassium Chloride [K-Dur] 20 meq PO QDAY #14 tablet 12/27/19 Unknown Rx Dicyclomine [Bentyl] 20 mg PO Q6H PRN #30 tablet 01/27/20 Unknown Rx Diphenoxylate/Atropine [Lomotil] 1 - 2 tab PO Q4H PRN #15 tablet 01/27/20 Unknown Rx Famotidine [Pepcid] 20 mg PO BID #60 tablet 01/27/20 Unknown Rx Ketorolac [Toradol] 10 mg PO Q8H PRN #20 tablet 01/27/20 Unknown Rx Ondansetron [Zofran Odt] 4 mg PO Q6HR PRN #20 tab.rapdis 01/27/20 Unknown Rx Acetaminophen/Codeine [Tylenol 1 tab PO Q6H PRN #12 tab 01/30/20 Unknown Rx /Codeine # 3 tab] Ciprofloxacin HCl [Ciprofloxacin 500 mg PO Q12HR #20 tab 01/30/20 Unknown Rx TAB] Ondansetron [Zofran Odt] 4 mg PO Q8HR PRN #12 tab.rapdis 01/30/20 Unknown Rx metroNIDAZOLE [Flagyl] 500 mg PO Q8HR #30 tablet 01/30/20 Unknown Rx ED Physical Exam - General Limitations: No Limitations General appearance: alert, in no apparent distress - Head Head exam: Present: atraumatic, normocephalic - Eye Eye exam: Present: normal appearance - Neck Neck exam: Present: normal inspection, full ROM. Absent: tenderness, meningismus, lymphadenopathy - Respiratory Respiratory exam: Present: normal lung sounds bilaterally. Absent: respiratory distress, wheezes, rales, rhonchi, stridor, chest wall tenderness, accessory muscle use, decreased breath sounds, prolonged expiratory - Cardiovascular Cardiovascular Exam: Present: regular rate, normal rhythm, normal heart sounds. Absent: bradycardia, tachycardia, irregular rhythm, systolic murmur, diastolic murmur, rubs, gallop - GI/Abdominal GI/Abdominal exam: Present: soft, tenderness (diffuse), normal bowel sounds. Absent: distended, guarding, rebound, rigid, diminished bowel sounds - Extremities Exam Extremities exam: Present: normal inspection, full ROM - Back Exam Back exam: Present: normal inspection, full ROM. Absent: tenderness, CVA tenderness (R), CVA tenderness (L), muscle spasm, paraspinal tenderness, vertebral tenderness, rash noted - Neurological Exam Neurological exam: Present: alert, oriented X3, normal gait - Psychiatric Psychiatric exam: Present: normal affect, normal mood - Skin Skin exam: Present: warm, dry, intact, normal color. Absent: rash ED Course Vital Signs 01/29/20 01/29/20 15:10 16:33 Temperature 98.4 F 98.4 F Pulse Rate 79 80 Respiratory 18 18 Rate Blood Pressure 151/97 O2 Sat by Pulse 99 100 Oximetry - Reevaluation(s) Reevaluation #1: 01/29/20 19:54 Patient is speaking in full sentences with no signs of distress noted. ED Medical Decision Making - Lab Data Result diagrams: 01/29/20 18:01 01/29/20 18:01 Lab Results 01/29/20 01/29/20 01/29/20 Range/Units 18:01 18:01 19:17 WBC 12.1 H (4.5-11.0) K/mm3 RBC 4.86 (3.65-5.03) M/mm3 Hgb 13.4 (10.1-14.3) gm/dl Hct 40.2 (30.3-42.9) % MCV 83 (79-97) fl MCH 28 (28-32) pg MCHC 33 (30-34) % RDW 13.8 (13.2-15.2) % Plt Count 316 (140-440) K/mm3 Lymph % (Auto) 17.9 (13.4-35.0) % [place] % (Auto) 3.3 (0.0-7.3) % Eos % (Auto) 2.2 (0.0-4.3) % Baso % (Auto) 0.5 (0.0-1.8) % Lymph # 2.2 (1.2-5.4) K/mm3 [place] # 0.4 (0.0-0.8) K/mm3 Eos # 0.3 (0.0-0.4) K/mm3 Baso # 0.1 (0.0-0.1) K/mm3 Seg Neutrophils % 76.1 H (40.0-70.0) % Seg Neutrophils # 9.2 H (1.8-7.7) K/mm3 Sodium 138 (137-145) mmol/L Potassium 3.7 (3.6-5.0) mmol/L Chloride 101.7 (98-107) mmol/L Carbon Dioxide 20 L (22-30) mmol/L Anion Gap 20 mmol/L BUN 12 (7-17) mg/dL Creatinine 0.6 (0.6-1.2) mg/dL Estimated GFR > 60 ml/min BUN/Creatinine Ratio 20 % Glucose 103 H (65-100) mg/dL Calcium 9.3 (8.4-10.2) mg/dL Total Bilirubin 0.20 (0.1-1.2) mg/dL AST 18 (5-40) units/L ALT 25 (7-56) units/L Alkaline Phosphatase 106 (35-129) units/L Total Protein 7.3 (6.3-8.2) g/dL Albumin 4.0 (3.9-5) g/dL Albumin/Globulin Ratio 1.2 % Lipase 13 (13-60) units/L HCG, Qual (Negative) Urine Color (Yellow) Urine Turbidity (Clear) Urine pH (5.0-7.0) Ur Specific Moodus (1.003-1.030) Urine Protein (Negative) mg/dL Urine Glucose (UA) (Negative) mg/dL Urine Ketones (Negative) mg/dL Urine Blood (Negative) Urine Nitrite (Negative) Urine Bilirubin (Negative) Urine Urobilinogen (<2.0) mg/dL Ur Leukocyte Esterase (Negative) Urine WBC (Auto) (0.0-6.0) /HPF Urine RBC (Auto) (0.0-6.0) /HPF U Epithel Cells (Auto) (0-13.0) /HPF Urine Bacteria (Auto) (Negative) /HPF Urine Mucus /HPF 01/29/20 01/29/20 Range/Units 19:17 Unknown WBC (4.5-11.0) K/mm3 RBC (3.65-5.03) M/mm3 Hgb (10.1-14.3) gm/dl Hct (30.3-42.9) % MCV (79-97) fl MCH (28-32) pg MCHC (30-34) % RDW (13.2-15.2) % Plt Count (140-440) K/mm3 Lymph % (Auto) (13.4-35.0) % [place] % (Auto) (0.0-7.3) % Eos % (Auto) (0.0-4.3) % Baso % (Auto) (0.0-1.8) % Lymph # (1.2-5.4) K/mm3 [place] # (0.0-0.8) K/mm3 Eos # (0.0-0.4) K/mm3 Baso # (0.0-0.1) K/mm3 Seg Neutrophils % (40.0-70.0) % Seg Neutrophils # (1.8-7.7) K/mm3 Sodium (137-145) mmol/L Potassium (3.6-5.0) mmol/L Chloride (98-107) mmol/L Carbon Dioxide (22-30) mmol/L Anion Gap mmol/L BUN (7-17) mg/dL Creatinine (0.6-1.2) mg/dL Estimated GFR ml/min BUN/Creatinine Ratio % Glucose (65-100) mg/dL Calcium (8.4-10.2) mg/dL Total Bilirubin (0.1-1.2) mg/dL AST (5-40) units/L ALT (7-56) units/L Alkaline Phosphatase (35-129) units/L Total Protein (6.3-8.2) g/dL Albumin (3.9-5) g/dL Albumin/Globulin Ratio % Lipase (13-60) units/L HCG, Qual Negative (Negative) Urine Color Yellow (Yellow) Urine Turbidity Clear (Clear) Urine pH 5.0 (5.0-7.0) Ur Specific Moodus 1.021 (1.003-1.030) Urine Protein <15 mg/dl (Negative) mg/dL Urine Glucose (UA) Neg (Negative) mg/dL Urine Ketones Neg (Negative) mg/dL Urine Blood Sm (Negative) Urine Nitrite Neg (Negative) Urine Bilirubin Neg (Negative) Urine Urobilinogen < 2.0 (<2.0) mg/dL Ur Leukocyte Esterase Neg (Negative) Urine WBC (Auto) < 1.0 (0.0-6.0) /HPF Urine RBC (Auto) 1.0 (0.0-6.0) /HPF U Epithel Cells (Auto) 5.0 (0-13.0) /HPF Urine Bacteria (Auto) 1+ (Negative) /HPF Urine Mucus Few /HPF - Radiology Data Referring Physician: JOÃO WILDER Patient Name: SHAWANDA MILIAN Date of : 1990 Sex: Female Report Date: 2020-01-29 Report Status: [place] [address] Cat Scan Report Signed Patient: SHAAWNDA MILIAN MR#: [id number] : 1990 Acct:[id number] Age/Sex: 29 / F ADM Date: 01/29/20 Loc: ED Attending Dr: Ordering Physician: JOÃO WILDER NP Date of Service: 01/29/20 Procedure(s): CT abdomen pelvis wo con Accession Number(s): [id number] cc: JOÃO WILDER NP CT ABDOMEN AND PELVIS WITHOUT CONTRAST HISTORY: n/v abd pain. COMPARISON: CT abdomen/pelvis from 2 days prior TECHNIQUE: CT images of the abdomen and pelvis were obtained without administration of intravenous contrast. All CT scans at this location are performed using CT dose reduction for ALARA by means of automated exposure control. FINDINGS: Lungs/bones: Lung bases are clear. There are degenerative changes and pelvis with no acute osseous abnormality. Abdomen/pelvis: The liver, gallbladder, spleen, adrenals, kidneys, and proximal GI tract appear unremarkable. Urinary bladder and reproductive organs are unremarkable with no pelvic free fluid. No acute colonic abnormality identified. The appendix appears to be surgically absent. Terminal ileum is n ormal. IMPRESSION: 1. No acute abnormality identified. Signer Name: Geoffrey Vogel MD Signed: 01/29/2020 9:17 PM Workstation Name: [id number] Transcribed By: MARJAN Dictated By: Geoffrey Vogel MD Electronically Authenticated By: Jamie Vogel MD Signed Date/Time: 01/29/202116 - Medical Decision Making This is a 29-year-old female that presents with abdominal pain. Patient is stable and was examined by me. Negative signs of symptoms of appendicitis. Labs obtained. UA obtained. Patient was unable to provide stool sample. Patient be treated empirically for possible C. difficile due to close contact with mother that was diagnosed with C. difficile as well as symptoms. CT of abdomen obtained and dictated by the radiologist. Patient is notified of the report with no questions noted by the patient. Vital signs are stable prior to discharge. Patient received medical treatment in the ED which patient stated symptoms has resovled and subsided. Was instructed note to operate any machinery due to possible drowsiness and stated someone will drive the patient home. A by mouth challenge has been obtained and patient tolerated well with no nausea vomiting. Patient was also instructed to Follow-up with a primary care doctor in 3-5 days or if symptoms worsen and continue return to emergency room as soon as possible. At time of discharge, the patient does not seem toxic or ill in appearance. No acute signs of distress noted. Patient agrees to discharge treatment plan of care. No further questions noted by the patient. Critical care attestation.: If time is entered above; I have spent that time in minutes in the direct care of this critically ill patient, excluding procedure time. ED Disposition Clinical Impression: Abdominal pain, Nausea, vomiting, and diarrhea Disposition: DC-01 TO HOME OR SELFCARE Is pt being admited?: No Does the pt Need Aspirin: No Condition: Stable Instructions: Acute Nausea and Vomiting (ED), Abdominal Pain (ED) Additional Instructions: Follow-up with a primary care and gun examiner doctor in 3-5 days or if symptoms worsen and continue return to emergency room as soon as possible. Prescriptions: Ciprofloxacin HCl [Ciprofloxacin TAB] 500 mg PO Q12HR #20 tab metroNIDAZOLE [Flagyl] 500 mg PO Q8HR #30 tablet Acetaminophen/Codeine [Tylenol /Codeine # 3 tab] 1 tab PO Q6H PRN #12 tab PRN Reason: Pain , Severe (7-10) Ondansetron [Zofran Odt] 4 mg PO Q8HR PRN #12 tab.rapdis PRN Reason: Nausea Referrals: KIM RUIZ MD [Primary Care Provider] - 3-5 Days PRIMARY CAREMD [Referring] - 3-5 Days [facility] [Provider Group] - 3-5 Days Forms: Work/School Release Form(ED)
[2020-01-29] MEDS ORDERED: diphenhydrAMINE 50 MG/ML VIAL ONE ×2 (20:10→20:40)
[2020-01-29] MEDS ORDERED: diphenhydrAMINE 50 MG/ML VIAL IV ONE (20:40)
[2020-01-29 21:14] LABS: Bacteria,Urine 1+ /HPF (Negative); Bilirubin,Urine NEG (Negative); Blood,Urine SM (Negative); Color,Urine Yellow (Yellow); Mucus,Urine FEW /HPF; Protein,Urine <15 mg/dL mg/dL (Negative); Urobilinogen,Urine < 2.0 mg/dL (<2.0); WBC,Urine < 1.0 /HPF (0.0-6.0)
--- NOTE | 2020-01-29 21:22 | Cat Scan Report ---
CT ABDOMEN AND PELVIS WITHOUT CONTRAST HISTORY: n/v abd pain. COMPARISON: CT abdomen/pelvis from 2 days prior TECHNIQUE: CT images of the abdomen and pelvis were obtained without administration of intravenous co ntrast. All CT scans at this location are performed using CT dose reduction for ALARA by means of au tomated exposure control. FINDINGS: Lungs/bones: Lung bases are clear. There are degenerative changes and pelvis with no acute osseous a bnormality. Abdomen/pelvis: The liver, gallbladder, spleen, adrenals, kidneys, and proximal GI tract appear unre markable. Urinary bladder and reproductive organs are unremarkable with no pelvic free fluid. No acute colonic abnormality identified. The appendix appears to be surgically absent. Terminal ileum is normal. IMPRESSION: 1. No acute abnormality identified. Signer Name: Geoffrey Vogel MD Signed: 01/29/2020 9:17 PM Workstation Name: [id number]
[2020-01-30] MEDS ORDERED: MORPHINE 4 MG/1 ML INJ IV ONE (00:08)
[2020-01-30] MEDS ORDERED: MORPHINE 4 MG/1 ML INJ ONE (00:10)
== END 2020-01-30 02:20 | disposition home or self-care (01) ==
LOC: ED 14:49
DX: R10.84 Generalized abdominal pain (principal); R11.2 Nausea with vomiting, unspecified; R19.7 Diarrhea, unspecified; I10 Essential (primary) hypertension; F32.9 Major depressive disorder, single episode, unspecified; J45.909 Unspecified asthma, uncomplicated; Z79.899 Other long term (current) drug therapy; Z88.0 Allergy status to penicillin; Z88.6 Allergy status to analgesic agent
CPT/HCPCS: 36415; 74176; 80053; 81001; 83690; 84703; 85025; 96361; 96374; 96375; 96376; 99284; J1200; J2270; J2405; J7030

== ENCOUNTER 2020-02-11 19:19 | Emergency (ER) | payer MEDICAID ==
[2020-02-11] MEDS ORDERED: ASPIRIN 81 MG TAB CHEW PO ONE (20:22)
[2020-02-11 20:51] LABS: Bilirubin,Urine NEG (Negative); Blood,Urine NEG (Negative); Color,Urine Yellow (Yellow); Mucus,Urine 3+ /HPF; Protein,Urine <15 mg/dL mg/dL (Negative); Urobilinogen,Urine < 2.0 mg/dL (<2.0)
[2020-02-11 20:57] LABS: Benzodiazepines Screen,Urine Negative; Cannabinoid Screen,Urine Negative; Cocaine Screen,Urine Negative; Methadone Screen,Urine Negative
[2020-02-11 21:33] LABS: Opiate Screen,Urine Negative
[2020-02-11 21:47] LABS: Amphetamine Screen,Urine PRESUMPTIVE POSITIVE
--- NOTE | 2020-02-11 21:57 | Emergency Department Report ---
ED General Adult HPI - General Chief complaint: Chest Pain Stated complaint: CHEST PAIN Time Seen by Provider: 02/11/20 20:10 Source: patient Mode of arrival: Stretcher Limitations: No Limitations - History of Present Illness Initial comments: Patient presents emergency department the chief complaint of chest pain that started at 12 noon today. Patient states the pain is located underneath her breastbone it feels like pressure. Patient denies a history of diabetes, high cholesterol, or hypertension. Patient states that she has been told that she has pre-hypertension. Patient denies any shortness of breath, abdominal pain, or headache. Patient denies a history of congenital heart disease or any heart abnormalities as an adult. -: Sudden Location: chest Radiation: non-radiation Severity scale (0 -10): 3 Quality: dull, other (pressure) Consistency: constant Improves with: none Worsens with: none Associated Symptoms: denies other symptoms Treatments Prior to Arrival: none - Related Data Previous Rx's Medication Instructions Recorded Last Taken Type Vit No.130/Iron/Folic 1 each PO QDAY #30 tablet 01/23/16 1 Day Ago Rx [ Tablet] ~08/19/16 Ferrous Sulfate [Feosol 325 MG tab] 325 mg PO BID #60 tablet 09/07/16 Unknown Rx Vit Calc,Iron,Folic 1 each PO DAILY #30 tablet 09/07/16 Unknown Rx [ Vitamins] Fluticasone [Flonase] 1 spray NS QDAY #1 bottle 06/25/19 Unknown Rx Ibuprofen [Motrin 800 MG tab] 800 mg PO Q8HR PRN #30 tablet 09/06/19 Unknown Rx Ibuprofen [Motrin 800 MG tab] 800 mg PO Q8HR PRN #20 tablet 10/22/19 Unknown Rx Potassium Chloride [K-Dur] 20 meq PO QDAY #14 tablet 12/27/19 Unknown Rx Dicyclomine [Bentyl] 20 mg PO Q6H PRN #30 tablet 01/27/20 Unknown Rx Diphenoxylate/Atropine [Lomotil] 1 - 2 tab PO Q4H PRN #15 tablet 01/27/20 Unknown Rx Famotidine [Pepcid] 20 mg PO BID #60 tablet 01/27/20 Unknown Rx Ketorolac [Toradol] 10 mg PO Q8H PRN #20 tablet 01/27/20 Unknown Rx Ondansetron [Zofran Odt] 4 mg PO Q6HR PRN #20 tab.rapdis 01/27/20 Unknown Rx Acetaminophen/Codeine [Tylenol 1 tab PO Q6H PRN #12 tab 01/30/20 Unknown Rx /Codeine # 3 tab] Ciprofloxacin HCl [Ciprofloxacin 500 mg PO Q12HR #20 tab 01/30/20 Unknown Rx TAB] Ondansetron [Zofran Odt] 4 mg PO Q8HR PRN #12 tab.rapdis 01/30/20 Unknown Rx metroNIDAZOLE [Flagyl] 500 mg PO Q8HR #30 tablet 01/30/20 Unknown Rx Ibuprofen [Motrin] 800 mg PO Q8HR PRN #30 tablet 02/12/20 Unknown Rx Allergies Allergy/AdvReac Type Severity Reaction Status Date / Time Penicillins Allergy Rash Verified 10/22/19 18:16 morphine AdvReac Mild Itching Verified 01/29/20 20:44 ED Review of Systems ROS: Stated complaint: CHEST PAIN Other details as noted in HPI Comment: All other systems reviewed and negative Constitutional: denies: chills, fever Eyes: denies: eye pain, eye discharge, vision change ENT: denies: ear pain, throat pain Respiratory: denies: cough, shortness of breath, wheezing Cardiovascular: chest pain. denies: palpitations Endocrine: no symptoms reported Gastrointestinal: denies: abdominal pain, nausea, diarrhea Genitourinary: denies: urgency, dysuria, discharge Musculoskeletal: denies: back pain, joint swelling, arthralgia Skin: denies: rash, lesions Neurological: denies: headache, weakness, paresthesias Psychiatric: denies: anxiety, depression Hematological/Lymphatic: denies: easy bleeding, easy bruising ED Past Medical Hx - Past Medical History Previous Medical History?: Yes Hx Hypertension: Yes (PIH) Hx Congestive Heart Failure: No Hx Diabetes: No Hx Deep Vein Thrombosis: No Hx Renal Disease: No Hx Sickle Cell Disease: No Hx Seizures: No Hx Psychiatric Treatment: Yes (Depression) Hx Asthma: Yes Hx COPD: No Hx HIV: No Additional medical history: Implanon implant Apr 14, 2011, hypoglycemic, MORBID OBESITY - Surgical History Past Surgical History?: Yes Hx Appendectomy: Yes Additional Surgical History: , Removal of implanon 05-19-2014 - Social History Smoking Status: Never Smoker Substance Use Type: Alcohol - Medications Home Medications: Home Medications Medication Instructions Recorded Confirmed Last Taken Type Vit No.130/Iron/Folic 1 each PO QDAY #30 tablet 01/23/16 09/08/16 1 Day Ago Rx [ Tablet] ~08/19/16 Ferrous Sulfate [Feosol 325 MG tab] 325 mg PO BID #60 tablet 09/07/16 Unknown Rx Vit Calc,Iron,Folic 1 each PO DAILY #30 tablet 09/07/16 Unknown Rx [ Vitamins] Fluticasone [Flonase] 1 spray NS QDAY #1 bottle 06/25/19 Unknown Rx Ibuprofen [Motrin 800 MG tab] 800 mg PO Q8HR PRN #30 tablet 09/06/19 Unknown Rx Ibuprofen [Motrin 800 MG tab] 800 mg PO Q8HR PRN #20 tablet 10/22/19 Unknown Rx Potassium Chloride [K-Dur] 20 meq PO QDAY #14 tablet 12/27/19 Unknown Rx Dicyclomine [Bentyl] 20 mg PO Q6H PRN #30 tablet 01/27/20 Unknown Rx Diphenoxylate/Atropine [Lomotil] 1 - 2 tab PO Q4H PRN #15 tablet 01/27/20 Unknown Rx Famotidine [Pepcid] 20 mg PO BID #60 tablet 01/27/20 Unknown Rx Ketorolac [Toradol] 10 mg PO Q8H PRN #20 tablet 01/27/20 Unknown Rx Ondansetron [Zofran Odt] 4 mg PO Q6HR PRN #20 tab.rapdis 01/27/20 Unknown Rx Acetaminophen/Codeine [Tylenol 1 tab PO Q6H PRN #12 tab 01/30/20 Unknown Rx /Codeine # 3 tab] Ciprofloxacin HCl [Ciprofloxacin 500 mg PO Q12HR #20 tab 01/30/20 Unknown Rx TAB] Ondansetron [Zofran Odt] 4 mg PO Q8HR PRN #12 tab.rapdis 01/30/20 Unknown Rx metroNIDAZOLE [Flagyl] 500 mg PO Q8HR #30 tablet 01/30/20 Unknown Rx Ibuprofen [Motrin] 800 mg PO Q8HR PRN #30 tablet 02/12/20 Unknown Rx ED Physical Exam - General Limitations: No Limitations General appearance: alert, in no apparent distress - Head Head exam: Present: atraumatic, normocephalic - Eye Eye exam: Present: normal appearance, PERRL, EOMI - ENT ENT exam: Present: mucous membranes moist - Neck Neck exam: Present: normal inspection - Respiratory Respiratory exam: Present: normal lung sounds bilaterally. Absent: respiratory distress - Cardiovascular Cardiovascular Exam: Present: regular rate, normal rhythm. Absent: systolic murmur, diastolic murmur, rubs, gallop - GI/Abdominal GI/Abdominal exam: Present: soft, normal bowel sounds. Absent: distended, tenderness - Extremities Exam Extremities exam: Present: normal inspection - Back Exam Back exam: Present: normal inspection - Neurological Exam Neurological exam: Present: alert, oriented X3, CN II-XII intact. Absent: motor sensory deficit - Psychiatric Psychiatric exam: Present: normal affect, normal mood - Skin Skin exam: Present: warm, dry, intact, normal color. Absent: rash ED Course Vital Signs 02/11/20 02/11/20 02/11/20 20:06 20:07 20:16 Temperature 98.4 F Pulse Rate 86 85 80 Respiratory 19 16 16 Rate Blood Pressure 140/77 Blood Pressure 146/75 [Right] O2 Sat by Pulse 99 99 100 Oximetry 02/11/20 02/11/20 02/11/20 20:30 20:46 21:00 Temperature Pulse Rate 80 76 75 Respiratory 17 18 20 Rate Blood Pressure 140/77 140/77 140/77 Blood Pressure [Right] O2 Sat by Pulse 100 100 100 Oximetry 02/11/20 02/11/20 02/11/20 21:15 21:31 21:45 Temperature Pulse Rate 80 71 74 Respiratory 20 21 17 Rate Blood Pressure 152/86 152/86 152/86 Blood Pressure [Right] O2 Sat by Pulse 100 100 99 Oximetry 02/11/20 02/11/20 02/12/20 22:00 23:00 00:03 Temperature Pulse Rate 80 76 Respiratory 16 17 16 Rate Blood Pressure 156/84 166/90 Blood Pressure [Right] O2 Sat by Pulse 99 100 Oximetry 02/12/20 02/12/20 00:32 01:01 Temperature Pulse Rate 75 Respiratory 16 19 Rate Blood Pressure 174/98 Blood Pressure [Right] O2 Sat by Pulse 98 Oximetry ED Medical Decision Making - Lab Data Result diagrams: 02/11/20 21:15 02/11/20 21:15 - EKG Data -: EKG Interpreted by Me EKG shows normal: sinus rhythm Rate: normal - Radiology Data Radiology results: report reviewed - Medical Decision Making Discussed results with patient Critical care attestation.: If time is entered above; I have spent that time in minutes in the direct care of this critically ill patient, excluding procedure time. ED Disposition Clinical Impression: Chest pain, non-cardiac Disposition: DC-01 TO HOME OR SELFCARE Is pt being admited?: No Does the pt Need Aspirin: No Condition: Stable Instructions: Chest Pain (ED) Additional Instructions: return if worse Referrals: PRIMARY CARE, [Primary Care Provider] - 3-5 Days KIM RUIZ MD [Staff Physician] - 3-5 Days Time of Disposition: 01:44
[2020-02-11 22:09] LABS: INR 0.91 (0.87-1.13)
[2020-02-11 22:10] LABS: Basophils # (Auto) 0.2 K/mm3 (0.0-0.1); Basophils % (Auto) 1.4 % (0.0-1.8); Eosinophils # (Auto) 0.5 K/mm3 (0.0-0.4); Eosinophils % (Auto) 3.8 % (0.0-4.3); Hematocrit 38.4 % (30.3-42.9); Hemoglobin 12.7 gm/dl (10.1-14.3); Lymphocytes # (Auto) 2.8 K/mm3 (1.2-5.4); Lymphocytes % (Auto) 23.8 % (13.4-35.0); Mean Corpuscular HGB Conc 33 % (30-34); Mean Corpuscular Volume 84 fl (79-97); Monocytes # (Auto) 0.7 K/mm3 (0.0-0.8); Monocytes % (Auto) 5.8 % (0.0-7.3); Partial Thromboplastin Time 25.2 Sec. (24.2-36.6); Platelet Count 295 K/mm3 (140-440); Red Blood Count 4.57 M/mm3 (3.65-5.03); Red Cell Distribution Width 13.7 % (13.2-15.2)
[2020-02-11 22:22] LABS: Alanine Aminotransferase 31 units/L (7-56); Albumin 3.9 g/dL (3.9-5); Blood Urea Nitrogen 7 mg/dL (7-17); Calcium 8.9 mg/dL (8.4-10.2); Hemolysis Index 23
[2020-02-11 22:32] LABS: BUN/Creatinine Ratio 14
[2020-02-11] MEDS ORDERED: traMADol 50 MG TAB PO ONE (22:39)
--- NOTE | 2020-02-11 22:53 | XRay Report ---
CHEST 1 VIEW INDICATION: Chest Pain. COMPARISON: 12/27/2019. FINDINGS: Support devices: None. Heart: Within normal limits. Lungs/Pleura: No acute air space or interstitial disease. Additional findings: None. IMPRESSION: No acute abnormality. Signer Name: Iker Woodard MD Signed: 02/11/2020 10:49 PM Workstation Name: [id number]
[2020-02-12] MEDS ORDERED: IBUPROFEN 800 MG TAB PO ONE (00:24)
[2020-02-12 01:20] VITALS: BP 174/98
== END 2020-02-12 02:07 | disposition home or self-care (01) ==
LOC: ED 19:19
DX: R07.89 Other chest pain (principal); I10 Essential (primary) hypertension; F32.9 Major depressive disorder, single episode, unspecified; J45.909 Unspecified asthma, uncomplicated; Z90.49 Acquired absence of other specified parts of digestive tract; Z79.899 Other long term (current) drug therapy; Z88.0 Allergy status to penicillin; Z88.6 Allergy status to analgesic agent
CPT/HCPCS: 36415; 71045; 80053; 80307; 81001; 84484; 84703; 85025; 85379; 85610; 85730; 93005

== ENCOUNTER 2020-03-06 16:45 | Emergency (ER) | payer MEDICAID ==
[2020-03-06 17:04] VITALS: BP 168/107
[2020-03-06] MEDS ORDERED: HYDROcodone/ACETAMINOPHEN 5-325 MG TAB PO ONE (18:16)
--- NOTE | 2020-03-06 19:12 | Emergency Department Report ---
ED Upper Extremity Inj HPI - General Chief Complaint: Fall Stated Complaint: LT ARM HAND PAINS Time Seen by Provider: 03/06/20 17:59 Source: patient Mode of arrival: Ambulatory Limitations: No Limitations - History of Present Illness Initial Comments: Patient is a 29-year-old female presents emergency room with complaints of left pinky's, left hand, left wrist pain that occurred yesterday. Patient states that she was playing around with her son. She states that she accidentally tripped over him and fell onto an outstretched hand. She states that she has had increasing pain and began having swelling. She states that she felt a popping sensation. She states that she went to get a booe-nin-macqosx splint but the pain continued. She states that she has broken this hand twice before once when she was 8 years old and once when she was 15 years old. She denies any numbness or weakness. She has a past medical history of asthma and hypertension. She has an allergy to penicillin morphine. Last menstrual cycle February 19. - Related Data Previous Rx's Medication Instructions Recorded Last Taken Type Vit No.130/Iron/Folic 1 each PO QDAY #30 tablet 01/23/16 1 Day Ago Rx [ Tablet] ~08/19/16 Ferrous Sulfate [Feosol 325 MG tab] 325 mg PO BID #60 tablet 09/07/16 Unknown Rx Vit Calc,Iron,Folic 1 each PO DAILY #30 tablet 09/07/16 Unknown Rx [ Vitamins] Fluticasone [Flonase] 1 spray NS QDAY #1 bottle 06/25/19 Unknown Rx Ibuprofen [Motrin 800 MG tab] 800 mg PO Q8HR PRN #30 tablet 09/06/19 Unknown Rx Ibuprofen [Motrin 800 MG tab] 800 mg PO Q8HR PRN #20 tablet 10/22/19 Unknown Rx Potassium Chloride [K-Dur] 20 meq PO QDAY #14 tablet 12/27/19 Unknown Rx Dicyclomine [Bentyl] 20 mg PO Q6H PRN #30 tablet 01/27/20 Unknown Rx Diphenoxylate/Atropine [Lomotil] 1 - 2 tab PO Q4H PRN #15 tablet 01/27/20 Unknown Rx Famotidine [Pepcid] 20 mg PO BID #60 tablet 01/27/20 Unknown Rx Ketorolac [Toradol] 10 mg PO Q8H PRN #20 tablet 01/27/20 Unknown Rx Ondansetron [Zofran Odt] 4 mg PO Q6HR PRN #20 tab.rapdis 01/27/20 Unknown Rx Acetaminophen/Codeine [Tylenol 1 tab PO Q6H PRN #12 tab 01/30/20 Unknown Rx /Codeine # 3 tab] Ciprofloxacin HCl [Ciprofloxacin 500 mg PO Q12HR #20 tab 01/30/20 Unknown Rx TAB] Ondansetron [Zofran Odt] 4 mg PO Q8HR PRN #12 tab.rapdis 01/30/20 Unknown Rx metroNIDAZOLE [Flagyl] 500 mg PO Q8HR #30 tablet 01/30/20 Unknown Rx Ibuprofen [Motrin] 800 mg PO Q8HR PRN #30 tablet 02/12/20 Unknown Rx lisinopriL [Zestril TAB] 10 mg PO QDAY #30 tablet 02/12/20 Unknown Rx Naproxen [EC-Naproxen] 500 mg PO BID PRN #14 tablet. 03/06/20 Unknown Rx Allergies Allergy/AdvReac Type Severity Reaction Status Date / Time Penicillins Allergy Rash Verified 10/22/19 18:16 morphine AdvReac Mild Itching Verified 01/29/20 20:44 ED Review of Systems ROS: Stated complaint: LT ARM HAND PAINS Other details as noted in HPI Comment: All other systems reviewed and negative ED Past Medical Hx - Past Medical History Previous Medical History?: Yes Hx Hypertension: Yes (PIH) Hx Congestive Heart Failure: No Hx Diabetes: No Hx Deep Vein Thrombosis: No Hx Renal Disease: No Hx Sickle Cell Disease: No Hx Seizures: No Hx Psychiatric Treatment: Yes (Depression) Hx Asthma: Yes Hx COPD: No Hx HIV: No Additional medical history: Implanon implant Apr 14, 2011, hypoglycemic, MORBID OBESITY - Surgical History Past Surgical History?: No Hx Appendectomy: Yes Additional Surgical History: , Removal of implanon 05-19-2014 - Social History Smoking Status: Never Smoker Substance Use Type: None - Medications Home Medications: Home Medications Medication Instructions Recorded Confirmed Last Taken Type Vit No.130/Iron/Folic 1 each PO QDAY #30 tablet 01/23/16 09/08/16 1 Day Ago Rx [ Tablet] ~08/19/16 Ferrous Sulfate [Feosol 325 MG tab] 325 mg PO BID #60 tablet 09/07/16 Unknown Rx Vit Calc,Iron,Folic 1 each PO DAILY #30 tablet 09/07/16 Unknown Rx [ Vitamins] Fluticasone [Flonase] 1 spray NS QDAY #1 bottle 06/25/19 Unknown Rx Ibuprofen [Motrin 800 MG tab] 800 mg PO Q8HR PRN #30 tablet 09/06/19 Unknown Rx Ibuprofen [Motrin 800 MG tab] 800 mg PO Q8HR PRN #20 tablet 10/22/19 Unknown Rx Potassium Chloride [K-Dur] 20 meq PO QDAY #14 tablet 12/27/19 Unknown Rx Dicyclomine [Bentyl] 20 mg PO Q6H PRN #30 tablet 01/27/20 Unknown Rx Diphenoxylate/Atropine [Lomotil] 1 - 2 tab PO Q4H PRN #15 tablet 01/27/20 Unknown Rx Famotidine [Pepcid] 20 mg PO BID #60 tablet 01/27/20 Unknown Rx Ketorolac [Toradol] 10 mg PO Q8H PRN #20 tablet 01/27/20 Unknown Rx Ondansetron [Zofran Odt] 4 mg PO Q6HR PRN #20 tab.rapdis 01/27/20 Unknown Rx Acetaminophen/Codeine [Tylenol 1 tab PO Q6H PRN #12 tab 01/30/20 Unknown Rx /Codeine # 3 tab] Ciprofloxacin HCl [Ciprofloxacin 500 mg PO Q12HR #20 tab 01/30/20 Unknown Rx TAB] Ondansetron [Zofran Odt] 4 mg PO Q8HR PRN #12 tab.rapdis 01/30/20 Unknown Rx metroNIDAZOLE [Flagyl] 500 mg PO Q8HR #30 tablet 01/30/20 Unknown Rx Ibuprofen [Motrin] 800 mg PO Q8HR PRN #30 tablet 02/12/20 Unknown Rx lisinopriL [Zestril TAB] 10 mg PO QDAY #30 tablet 02/12/20 Unknown Rx Naproxen [EC-Naproxen] 500 mg PO BID PRN #14 tablet. 03/06/20 Unknown Rx ED Physical Exam - General Limitations: No Limitations General appearance: alert, in no apparent distress - Head Head exam: Present: atraumatic, normocephalic - Eye Eye exam: Present: normal appearance - ENT ENT exam: Present: mucous membranes moist - Extremities Exam Extremities exam: Present: other (ttp to the proximal left pinky, left medial dorsal hand, and left medial wrist, no deformity, no obvious joint laxity, FROM of the left digits, hand, and wrist, no snuffbox ttp, neurovascularly intact) - Neurological Exam Neurological exam: Present: alert, oriented X3 - Psychiatric Psychiatric exam: Present: normal affect, normal mood - Skin Skin exam: Present: warm, dry, intact ED Course Vital Signs 03/06/20 03/06/20 16:59 20:09 Temperature 98.7 F Pulse Rate 85 78 Respiratory 20 17 Rate Blood Pressure 168/107 O2 Sat by Pulse 98 96 Oximetry ED Medical Decision Making - Radiology Data Radiology results: report reviewed LEFT HAND AND WRIST 6 VIEW(S) INDICATION / CLINICAL INFORMATION: fall onto outstreched hand, pinky/hand/wrist pain COMPARISON: None available. FINDINGS: BONES / JOINT(S): No acute fracture or subluxation. No significant arthritis. Carpal arcs are intact. SOFT TISSUES: No significant abnormality. ADDITIONAL FINDINGS: None. Signer Name: Alexandra Guillaume MD Signed: 03/06/2020 7:15 PM Workstation Name: [id number] Transcribed By: Dictated By: ALEXANDRA GUILLAUME Electronically Authenticated By: ALEXANDRA GUILLAUME Signed Date/Time: 03/06/201914 DD/ 13 TD/TT: - Medical Decision Making Patient is a 29-year-old female presents emergency room with complaints of left pinky's, left hand, left wrist pain that occurred yesterday. Patient states that she was playing around with her son. She states that she accidentally tripped over him and fell onto an outstretched hand. She states that she has had increasing pain and began having swelling. She states that she felt a popping sensation. She states that she went to get a glek-yeu-uzkyafs splint but the pain continued. She states that she has broken this hand twice before once when she was 8 years old and once when she was 15 years old. She denies any numbness or weakness. She has a past medical history of asthma and hypertension. She has an allergy to penicillin morphine. Last menstrual cycle February 19. on exam: ttp to the proximal left pinky, left medial dorsal hand, and left medial wrist, no deformity, no obvious joint laxity, FROM of the left digits, hand, and wrist, no snuffbox ttp, neurovascularly intact. XR left hand/wrist: BONES / JOINT(S): No acute fracture or subluxation. No significant arthritis. Carpal arcs are intact. SOFT TISSUES: No significant abnormality. ADDITIONAL FINDINGS: None. Patient given pain medication while in the emergency department as she did not drive and symptoms improved. Discussed results with patient and answered questions. Patient already has a Velcro splint which she can continue to wear. Patient given prescription for naproxen. Patient will be referred to orthopedic. Advised patient please take medication as prescribed. may use ice for 15 minutes at a time, rest. follow up with an orthopedic doctor. return to the emergency room for any new or worsening symptoms. - Differential Diagnosis strain, sprain, fx, dislocation Critical care attestation.: If time is entered above; I have spent that time in minutes in the direct care of this critically ill patient, excluding procedure time. ED Disposition Clinical Impression: Left hand pain, Left wrist pain, Finger pain, left Disposition: DC-01 TO HOME OR SELFCARE Is pt being admited?: No Does the pt Need Aspirin: No Condition: Stable Instructions: Hand Sprain (ED), Arthralgia (ED) Additional Instructions: please take medication as prescribed. may use ice for 15 minutes at a time, rest. follow up with an orthopedic doctor. return to the emergency room for any new or worsening symptoms. Prescriptions: Naproxen [EC-Naproxen] 500 mg PO BID PRN #14 [email or web address] EDEN Reason: pain Referrals: LEONOR JAY MD [Staff Physician] - 2-3 Days [facility] [Provider Group] - 2-3 Days Time of Disposition: 19:54 Print Language: YEMENI
--- NOTE | 2020-03-06 19:20 | XRay Report ---
LEFT HAND AND WRIST 6 VIEW(S) INDICATION / CLINICAL INFORMATION: fall onto outstreched hand, pinky/hand/wrist pain COMPARISON: None available. FINDINGS: BONES / JOINT(S): No acute fracture or subluxation. No significant arthritis. Carpal arcs are intact. SOFT TISSUES: No significant abnormality. ADDITIONAL FINDINGS: None. Signer Name: Raffaele Tadeo MD Signed: 03/06/2020 7:15 PM Workstation Name: [id number]
== END 2020-03-06 20:09 | disposition home or self-care (01) ==
LOC: ED 16:45
DX: M25.532 Pain in left wrist (principal); M79.645 Pain in left finger(s); M79.642 Pain in left hand; J45.909 Unspecified asthma, uncomplicated; I10 Essential (primary) hypertension; E66.01 Morbid (severe) obesity due to excess calories; F32.9 Major depressive disorder, single episode, unspecified; Z88.0 Allergy status to penicillin; Z90.49 Acquired absence of other specified parts of digestive tract; Z88.6 Allergy status to analgesic agent; Z98.890 Other specified postprocedural states; Z79.899 Other long term (current) drug therapy; Z68.43 Body mass index [BMI] 50.0-59.9, adult

== ENCOUNTER 2020-05-26 19:39 | Emergency (ER) | payer MEDICAID | END 2020-05-26 23:05 | disposition left against medical advice (07) | LOC: ED 19:39 | DX: M25.572 Pain in left ankle and joints of left foot (principal); Z53.21 Procedure and treatment not carried out due to patient leaving prior to being seen by health care provider ==

== ENCOUNTER 2020-06-24 21:53 | Emergency (ER) | payer MEDICAID ==
[2020-06-24 22:42] VITALS: BP 152/97
[2020-06-24] MEDS ORDERED: ACETAMINOPHEN 500 MG TAB PO ONE (22:46)
[2020-06-24] MEDS ORDERED: ASPIRIN 81 MG TAB CHEW PO ONE (22:46)
[2020-06-24 23:13] LABS: Basophils # (Auto) 0.3 K/mm3 (0.0-0.1); Basophils % (Auto) 2.9 % (0.0-1.8); Eosinophils # (Auto) 0.4 K/mm3 (0.0-0.4); Eosinophils % (Auto) 3.1 % (0.0-4.3); Hematocrit 38.9 % (30.3-42.9); Lymphocytes # (Auto) 1.7 K/mm3 (1.2-5.4); Lymphocytes % (Auto) 14.6 % (13.4-35.0); Mean Corpuscular HGB Conc 33 % (30-34); Mean Corpuscular Volume 82 fl (79-97); Monocytes # (Auto) 0.5 K/mm3 (0.0-0.8); Platelet Count 309 K/mm3 (140-440); Red Blood Count 4.77 M/mm3 (3.65-5.03); Red Cell Distribution Width 13.6 % (13.2-15.2)
[2020-06-24 23:30] LABS: Alanine Aminotransferase 19 units/L (7-56); Albumin 4.2 g/dL (3.9-5); Blood Urea Nitrogen 9 mg/dL (7-17); Calcium 9.3 mg/dL (8.4-10.2); Hemolysis Index 15
[2020-06-24 23:37] LABS: BUN/Creatinine Ratio 15
--- NOTE | 2020-06-24 23:59 | XRay Report ---
CHEST 1 VIEW INDICATION / CLINICAL INFORMATION: Chest pain. COMPARISON: 02/11/2020 FINDINGS: SUPPORT DEVICES: None. HEART / MEDIASTINUM: No significant abnormality. LUNGS / PLEURA: No significant pulmonary or pleural abnormality. No pneumothorax. ADDITIONAL FINDINGS: No significant additional findings. IMPRESSION: 1. No acute findings. No interval change. Signer Name: Maria Teresa Traore MD Signed: 06/24/2020 11:55 PM Workstation Name: [id number]
[2020-06-25] MEDS ORDERED: oxyCODONE /ACETAMINOPHEN 5-325MG TAB PO ONE (00:31)
--- NOTE | 2020-06-25 00:46 | Emergency Department Report ---
ED Chest Pain HPI - General Chief Complaint: Chest Pain Stated Complaint: CHEST PAIN/DIZZINESS Time Seen by Provider: 06/25/20 00:21 Source: patient Mode of arrival: Ambulatory Limitations: No Limitations - History of Present Illness Initial Comments: This is a 38-year-old female presents to the emergency department with complaint of a headache and chest pain. Headache is left-sided and has been going on consistently over the past 3 to 4 days. She denies any fever, vision change, slurred speech, numbness or paresthesias, or any neurological deficits. The chest pain is midsternal and has been going on intermittently since earlier today. She denies any shortness of breath, back pain, nausea, vomiting or diaphoresis. The patient took some Tylenol for symptoms without any relief. She has a past medical history of asthma and hypertension. She denies any tobacco or illicit drug use. She does have a family history of early cardiac events/CA as her brother had an CA in his mid 30s. No recent travel or sick contacts at home. Her primary care physician is Dr. Oshea. Currently she says that the headache is 9 out of 10 in intensity. The chest pain is intermittent and currently not bothering her during my initial examination. No known alleviating or aggravating factors. Severity scale (0 -10): 10 - Related Data Previous Rx's Medication Instructions Recorded Last Taken Type Vit No.130/Iron/Folic 1 each PO QDAY #30 tablet 01/23/16 1 Day Ago Rx [ Tablet] ~08/19/16 Ferrous Sulfate [Feosol 325 MG tab] 325 mg PO BID #60 tablet 09/07/16 Unknown Rx Vit Calc,Iron,Folic 1 each PO DAILY #30 tablet 09/07/16 Unknown Rx [ Vitamins] Fluticasone [Flonase] 1 spray NS QDAY #1 bottle 06/25/19 Unknown Rx Ibuprofen [Motrin 800 MG tab] 800 mg PO Q8HR PRN #30 tablet 09/06/19 Unknown Rx Ibuprofen [Motrin 800 MG tab] 800 mg PO Q8HR PRN #20 tablet 10/22/19 Unknown Rx Potassium Chloride [K-Dur] 20 meq PO QDAY #14 tablet 12/27/19 Unknown Rx Dicyclomine [Bentyl] 20 mg PO Q6H PRN #30 tablet 01/27/20 Unknown Rx Diphenoxylate/Atropine [Lomotil] 1 - 2 tab PO Q4H PRN #15 tablet 01/27/20 Unknown Rx Famotidine [Pepcid] 20 mg PO BID #60 tablet 01/27/20 Unknown Rx Ketorolac [Toradol] 10 mg PO Q8H PRN #20 tablet 01/27/20 Unknown Rx Ondansetron [Zofran Odt] 4 mg PO Q6HR PRN #20 tab.rapdis 01/27/20 Unknown Rx Acetaminophen/Codeine [Tylenol 1 tab PO Q6H PRN #12 tab 01/30/20 Unknown Rx /Codeine # 3 tab] Ciprofloxacin HCl [Ciprofloxacin 500 mg PO Q12HR #20 tab 01/30/20 Unknown Rx TAB] Ondansetron [Zofran Odt] 4 mg PO Q8HR PRN #12 tab.rapdis 01/30/20 Unknown Rx metroNIDAZOLE [Flagyl] 500 mg PO Q8HR #30 tablet 01/30/20 Unknown Rx Ibuprofen [Motrin] 800 mg PO Q8HR PRN #30 tablet 02/12/20 Unknown Rx lisinopriL [Zestril TAB] 10 mg PO QDAY #30 tablet 02/12/20 Unknown Rx Naproxen [EC-Naproxen] 500 mg PO BID PRN #14 tablet. 03/06/20 Unknown Rx traMADoL [Ultram 50 MG tab] 50 mg PO Q6HR PRN #8 tablet 06/25/20 Unknown Rx Allergies Allergy/AdvReac Type Severity Reaction Status Date / Time Penicillins Allergy Rash Verified 10/22/19 18:16 morphine AdvReac Mild Itching Verified 01/29/20 20:44 Heart Score - HEART Score History: Slightly suspicious EKG: Normal Age: < 45 Risk factors: 1-2 risk factors Troponin: < normal limit HEART Score: 1 - Critical Actions Critical Actions: 0-3 pts:0.9-1.7%risk of adverse cardiac event.Candidate for discharge ED Review of Systems ROS: Stated complaint: CHEST PAIN/DIZZINESS Other details as noted in HPI Comment: All other systems reviewed and negative Constitutional: denies: chills, fever Eyes: denies: eye pain, vision change ENT: denies: ear pain, throat pain Respiratory: denies: cough, shortness of breath Cardiovascular: chest pain. denies: palpitations, edema Gastrointestinal: denies: abdominal pain, vomiting Genitourinary: denies: dysuria, discharge Musculoskeletal: denies: back pain, arthralgia Skin: denies: rash, lesions Neurological: headache. denies: numbness, paresthesias ED Past Medical Hx - Past Medical History Previous Medical History?: Yes Hx Hypertension: Yes (PIH) Hx Congestive Heart Failure: No Hx Diabetes: No Hx Deep Vein Thrombosis: No Hx Renal Disease: No Hx Sickle Cell Disease: No Hx Seizures: No Hx Psychiatric Treatment: Yes (Depression) Hx Asthma: Yes Hx COPD: No Hx HIV: No Additional medical history: Hypoglycemic, MORBID OBESITY - Surgical History Past Surgical History?: Yes Hx Appendectomy: Yes Additional Surgical History: , - Social History Smoking Status: Never Smoker - Medications Home Medications: Home Medications Medication Instructions Recorded Confirmed Last Taken Type Vit No.130/Iron/Folic 1 each PO QDAY #30 tablet 01/23/16 09/08/16 1 Day Ago Rx [ Tablet] ~08/19/16 Ferrous Sulfate [Feosol 325 MG tab] 325 mg PO BID #60 tablet 09/07/16 Unknown Rx Vit Calc,Iron,Folic 1 each PO DAILY #30 tablet 09/07/16 Unknown Rx [ Vitamins] Fluticasone [Flonase] 1 spray NS QDAY #1 bottle 06/25/19 Unknown Rx Ibuprofen [Motrin 800 MG tab] 800 mg PO Q8HR PRN #30 tablet 09/06/19 Unknown Rx Ibuprofen [Motrin 800 MG tab] 800 mg PO Q8HR PRN #20 tablet 10/22/19 Unknown Rx Potassium Chloride [K-Dur] 20 meq PO QDAY #14 tablet 12/27/19 Unknown Rx Dicyclomine [Bentyl] 20 mg PO Q6H PRN #30 tablet 01/27/20 Unknown Rx Diphenoxylate/Atropine [Lomotil] 1 - 2 tab PO Q4H PRN #15 tablet 01/27/20 Unknown Rx Famotidine [Pepcid] 20 mg PO BID #60 tablet 01/27/20 Unknown Rx Ketorolac [Toradol] 10 mg PO Q8H PRN #20 tablet 01/27/20 Unknown Rx Ondansetron [Zofran Odt] 4 mg PO Q6HR PRN #20 tab.rapdis 08/17/20 Unknown Rx Acetaminophen/Codeine [Tylenol 1 tab PO Q6H PRN #12 tab 01/30/20 Unknown Rx /Codeine # 3 tab] Ciprofloxacin HCl [Ciprofloxacin 500 mg PO Q12HR #20 tab 01/30/20 Unknown Rx TAB] Ondansetron [Zofran Odt] 4 mg PO Q8HR PRN #12 tab.rapdis 01/30/20 Unknown Rx metroNIDAZOLE [Flagyl] 500 mg PO Q8HR #30 tablet 01/30/20 Unknown Rx Ibuprofen [Motrin] 800 mg PO Q8HR PRN #30 tablet 02/12/20 Unknown Rx lisinopriL [Zestril TAB] 10 mg PO QDAY #30 tablet 02/12/20 Unknown Rx Naproxen [EC-Naproxen] 500 mg PO BID PRN #14 tablet. 03/06/20 Unknown Rx traMADoL [Ultram 50 MG tab] 50 mg PO Q6HR PRN #8 tablet 06/25/20 Unknown Rx ED Physical Exam - General Limitations: No Limitations - Other Other exam information: GENERAL: The patient is well-developed well-nourished. HENT: Normocephalic. Atraumatic. Patient has moist mucous membranes. EYES: Extraocular motions are intact. No nystagmus. NECK: Supple. Trachea is midline. CHEST/LUNGS: Clear to auscultation. There is no respiratory distress noted. HEART/CARDIOVASCULAR: Regular. There is no tachycardia. There is no murmur. ABDOMEN: Abdomen is soft, nontender. Patient has normal bowel sounds. Obese habitus. SKIN: Skin is warm and dry. NEURO: The patient is awake, alert, and oriented. The patient is cooperative. The patient has no focal neurologic deficits. Normal speech. Cranial nerves II through XII grossly intact. No facial asymmetry. MUSCULOSKELETAL: There is no tenderness or deformity. There is no limitation range of motion. ED Course Vital Signs 06/24/20 06/24/20 06/25/20 22:22 23:04 03:05 Temperature 98.2 F Pulse Rate 87 78 Respiratory 16 18 16 Rate Blood Pressure 152/97 O2 Sat by Pulse 98 99 Oximetry THERESA score - Theresa Score Age > 65: (0) No Aspirin use within the Past 7 Days: (0) No 3 or more CAD Risk Factors: (0) No 2 or more Angina events in past 24 hrs: (1) Yes Known CAD with more than 50% Stenosis: (0) No Elevated Cardiac Markers: (0) No ST Deviation Greater than 0.5mm: (0) No THERESA Score: 1 ED Medical Decision Making - Lab Data Result diagrams: 06/24/20 22:48 06/24/20 22:48 Lab Results 06/24/20 06/24/20 06/24/20 Range/Units 22:48 22:48 22:48 WBC 11.8 H (4.5-11.0) K/mm3 RBC 4.77 (3.65-5.03) M/mm3 Hgb 13.0 (10.1-14.3) gm/dl Hct 38.9 (30.3-42.9) % MCV 82 (79-97) fl MCH 27 L (28-32) pg MCHC 33 (30-34) % RDW 13.6 (13.2-15.2) % Plt Count 309 (140-440) K/mm3 Lymph % (Auto) 14.6 (13.4-35.0) % Gilliam % (Auto) 4.0 (0.0-7.3) % Eos % (Auto) 3.1 (0.0-4.3) % Baso % (Auto) 2.9 H (0.0-1.8) % Lymph # (Auto) 1.7 (1.2-5.4) K/mm3 Gilliam # (Auto) 0.5 (0.0-0.8) K/mm3 Eos # (Auto) 0.4 (0.0-0.4) K/mm3 Baso # (Auto) 0.3 H (0.0-0.1) K/mm3 Seg Neutrophils % 75.4 H (40.0-70.0) % Seg Neutrophils # 8.9 H (1.8-7.7) K/mm3 Sodium 140 (137-145) mmol/L Potassium 3.9 (3.6-5.0) mmol/L Chloride 102.6 (98-107) mmol/L Carbon Dioxide 25 (22-30) mmol/L Anion Gap 16 mmol/L BUN 9 (7-17) mg/dL Creatinine 0.6 (0.6-1.2) mg/dL Estimated GFR > 60 ml/min BUN/Creatinine Ratio 15 % Glucose 94 (65-100) mg/dL Calcium 9.3 (8.4-10.2) mg/dL Total Bilirubin 0.20 (0.1-1.2) mg/dL AST 15 (5-40) units/L ALT 19 (7-56) units/L Alkaline Phosphatase 110 (35-129) units/L Troponin T < 0.010 (0.00-0.029) ng/mL Total Protein 6.8 (6.3-8.2) g/dL Albumin 4.2 (3.9-5) g/dL Albumin/Globulin Ratio 1.6 % HCG, Qual Negative (Negative) Group A Strep Rapid (Negative) 06/25/20 06/25/20 Range/Units 01:23 Unknown WBC (4.5-11.0) K/mm3 RBC (3.65-5.03) M/mm3 Hgb (10.1-14.3) gm/dl Hct (30.3-42.9) % MCV (79-97) fl MCH (28-32) pg MCHC (30-34) % RDW (13.2-15.2) % Plt Count (140-440) K/mm3 Lymph % (Auto) (13.4-35.0) % Gilliam % (Auto) (0.0-7.3) % Eos % (Auto) (0.0-4.3) % Baso % (Auto) (0.0-1.8) % Lymph # (Auto) (1.2-5.4) K/mm3 Gilliam # (Auto) (0.0-0.8) K/mm3 Eos # (Auto) (0.0-0.4) K/mm3 Baso # (Auto) (0.0-0.1) K/mm3 Seg Neutrophils % (40.0-70.0) % Seg Neutrophils # (1.8-7.7) K/mm3 Sodium (137-145) mmol/L Potassium (3.6-5.0) mmol/L Chloride (98-107) mmol/L Carbon Dioxide (22-30) mmol/L Anion Gap mmol/L BUN (7-17) mg/dL Creatinine (0.6-1.2) mg/dL Estimated GFR ml/min BUN/Creatinine Ratio % Glucose (65-100) mg/dL Calcium (8.4-10.2) mg/dL Total Bilirubin (0.1-1.2) mg/dL AST (5-40) units/L ALT (7-56) units/L Alkaline Phosphatase (35-129) units/L Troponin T < 0.010 (0.00-0.029) ng/mL Total Protein (6.3-8.2) g/dL Albumin (3.9-5) g/dL Albumin/Globulin Ratio % HCG, Qual (Negative) Group A Strep Rapid Negative (Negative) - EKG Data -: EKG Interpreted by Me EKG shows normal: sinus rhythm, axis, intervals, QRS complexes, ST-T waves Rate: normal - EKG Data When compared to previous EKG there are: no significant change Interpretation: normal EKG, unchanged when compared t (02/11/20) - Radiology Data Radiology results: report reviewed, image reviewed interpreted by me: Chest x-ray does not show any acute process. There are no pleural effusions, obvious pneumonia and there is no pneumothorax. No significant cardiomegaly. CT head/brain wo con INDICATION / CLINICAL INFORMATION: Patient complains of a headache. TECHNIQUE: Axial CT imaging of the brain was obtained without contrast. Coronal and sagittal reformatted imaging obtained and reviewed. All CT scans at this location are performed using CT dose reduction for ALARA by means of automated exposure control. COMPARISON: Prior head CT 09/13/2015 FINDINGS: No intracranial hemorrhage, mass, or midline shift is noted. No extra-axial fluid collection or suggestion of acute territorial infarction. Ventricular system and basilar cisterns are unremarkable. Visualized paranasal sinuses are well aerated and grossly clear. Bilateral mastoid air cells are clear. No calvarial abnormality. No soft tissue abnormality. IMPRESSION: 1. Negative noncontrasted head CT scan. - Medical Decision Making This patient presents to the emergency department with a complaint of a 4-day history of some left-sided headache, and a 1 day history of some left-sided chest pain with radiation down the left arm. She also complains of some throat pain. On examination the patient has normal heart and lung sounds auscultation. She does not appear in any respiratory or acute distress. She does not have any focal, motor or sensory deficits and her cranial nerves are intact. CT scan of the head without contrast does not show any bleed, shift, mass, ischemia, or any other acute process. Chest x-ray does not show any pneumonia, pleural effusions, pneumothorax, focal consolidation, or any other acute process. The patient's labs have been unremarkable including CBC, metabolic panel, negative troponins x2, and negative rapid strep test. Patient was given oral analgesia with some improvement of her symptoms. Vital signs have been reassuring throughout her ED course including being afebrile. The patient is low on the heart and THERESA score. She is low on the Wells score criteria and negative on the pulmonary embolism rule out criteria. For all these reasons the patient appears safe for discharge home at this time. She has been seen ambulatory in the emergency department and both appears and feels stable. She has been instructed to follow-up with her primary care physician in the next few days. Her contact information has been sent over to the [facility], and someone from their office should be contacting you shortly for close outpatient follow-up as per our hospitals low risk chest pain pro tocol. Critical Care Time: No Critical care attestation.: If time is entered above; I have spent that time in minutes in the direct care of this critically ill patient, excluding procedure time. ED Disposition Clinical Impression: Sore throat Chest pain Qualifiers: Chest pain type: unspecified Qualified Code(s): R07.9 - Chest pain, unspecified Headache Qualifiers: Headache type: unspecified Headache chronicity pattern: unspecified pattern Intractability: not intractable Qualified Code(s): R51.9 - Headache, unspecified Disposition: DC-01 TO HOME OR SELFCARE Is pt being admited?: No Condition: Stable Instructions: General Headache Without Cause, Pharyngitis, Nonspecific Chest Pain, Adult, Chest Pain (ED) Additional Instructions: Please follow-up with your primary care physician in the next few days. Your contact information has been sent over to the [facility], and someone from their office should be contacting you shortly for close outpatient follow-up. Just in case, I have also given you a referral for one of their cardiologists, Dr. Rabago. You have been prescribed a medication that is sedating and therefore should not be taken prior to driving, working, and responsible for children and in no way should be mixed with alcohol of any quantity. Return to the emergency department with any worsening of your symptoms, new or concerning symptoms not addressed during this current emergency department visit, or with any acute distress. Prescriptions: traMADoL [Ultram 50 MG tab] 50 mg PO Q6HR PRN #8 tablet PRN Reason: Pain Referrals: ZAHRA RABAGO MD [Staff Physician] - 2-3 Days PCP, Your [Other] - 2-3 Days Time of Disposition: 02:47
--- NOTE | 2020-06-25 01:51 | Cat Scan Report ---
CT head/brain wo con INDICATION / CLINICAL INFORMATION: Patient complains of a headache. TECHNIQUE: Axial CT imaging of the brain was obtained without contrast. Coronal and sagittal reformatted imaging obtained and reviewed. All CT scans at this location are performed using CT dose reduction for ALAR A by means of automated exposure control. COMPARISON: Prior head CT 09/13/2015 FINDINGS: No intracranial hemorrhage, mass, or midline shift is noted. No extra-axial fluid collection or sugge stion of acute territorial infarction. Ventricular system and basilar cisterns are unremarkable. Visualized paranasal sinuses are well aerated and grossly clear. Bilateral mastoid air cells are celia r. No calvarial abnormality. No soft tissue abnormality. IMPRESSION: 1. Negative noncontrasted head CT scan. Signer Name: Maria Teresa Traore MD Signed: 06/25/2020 1:46 AM Workstation Name: [id number]
== END 2020-06-25 03:05 | disposition home or self-care (01) ==
LOC: ED 21:53
DX: J02.9 Acute pharyngitis, unspecified (principal); R51.9 Headache, unspecified; R07.89 Other chest pain; I10 Essential (primary) hypertension; F32.9 Major depressive disorder, single episode, unspecified; J45.909 Unspecified asthma, uncomplicated; Z90.49 Acquired absence of other specified parts of digestive tract; Z98.890 Other specified postprocedural states; Z79.1 Long term (current) use of non-steroidal anti-inflammatories (NSAID); Z79.2 Long term (current) use of antibiotics; Z79.899 Other long term (current) drug therapy; Z88.0 Allergy status to penicillin; Z88.8 Allergy status to other drugs, medicaments and biological substances
CPT/HCPCS: 36415; 70450; 71045; 80053; 84484; 84703; 85025; 87116; 87430; 93005

== ENCOUNTER 2020-08-02 16:40 | Emergency (ER) | payer MEDICAID ==
[2020-08-02 17:36] VITALS: BP 173/106
--- NOTE | 2020-08-02 20:20 | Emergency Department Report ---
ED Abdominal Pain HPI - General Chief Complaint: Abdominal Pain Stated Complaint: CHEST PAIN Time Seen by Provider: 08/02/20 19:59 Source: patient Mode of arrival: Ambulatory Limitations: No Limitations - History of Present Illness Initial Comments: 30-year-old morbidly obese female with a past medical history of asthma, depression, appendectomy and current abdominal pain off and on for several months presents emergency department complaining of another flareup of epigastric pain for the last 3 days diabetes across the upper abdomen. Asso ciated with nausea and a few episodes of diarrhea. Reports no hemoptysis, hematemesis, no hematochezia. Reports no chest pain, no shortness of breath, no palpitations, no fever, chills, sweats MD Complaint: abdominal pain -: Gradual Location: diffuse Radiation: none Severity: moderate Severity scale (0 -10): 7 Improves With: nothing Worsens With: nothing Associated Symptoms: nausea, diarrhea. denies: dysuria, hematemesis, hematochezia, melena, hematuria, anorexia, syncope - Related Data Previous Rx's Medication Instructions Recorded Last Taken Type Vit No.130/Iron/Folic 1 each PO QDAY #30 tablet 01/23/16 1 Day Ago Rx [ Tablet] ~08/19/16 Ferrous Sulfate [Feosol 325 MG tab] 325 mg PO BID #60 tablet 09/07/16 Unknown Rx Vit Calc,Iron,Folic 1 each PO DAILY #30 tablet 09/07/16 Unknown Rx [ Vitamins] Fluticasone [Flonase] 1 spray NS QDAY #1 bottle 06/25/19 Unknown Rx Ibuprofen [Motrin 800 MG tab] 800 mg PO Q8HR PRN #30 tablet 09/06/19 Unknown Rx Ibuprofen [Motrin 800 MG tab] 800 mg PO Q8HR PRN #20 tablet 10/22/19 Unknown Rx Potassium Chloride [K-Dur] 20 meq PO QDAY #14 tablet 12/27/19 Unknown Rx Dicyclomine [Bentyl] 20 mg PO Q6H PRN #30 tablet 01/27/20 Unknown Rx Diphenoxylate/Atropine [Lomotil] 1 - 2 tab PO Q4H PRN #15 tablet 01/27/20 Unknown Rx Famotidine [Pepcid] 20 mg PO BID #60 tablet 01/27/20 Unknown Rx Ketorolac [Toradol] 10 mg PO Q8H PRN #20 tablet 01/27/20 Unknown Rx Ondansetron [Zofran Odt] 4 mg PO Q6HR PRN #20 tab.rapdis 01/27/20 Unknown Rx Acetaminophen/Codeine [Tylenol 1 tab PO Q6H PRN #12 tab 01/30/20 Unknown Rx /Codeine # 3 tab] Ciprofloxacin HCl [Ciprofloxacin 500 mg PO Q12HR #20 tab 01/30/20 Unknown Rx TAB] Ondansetron [Zofran Odt] 4 mg PO Q8HR PRN #12 tab.rapdis 01/30/20 Unknown Rx metroNIDAZOLE [Flagyl] 500 mg PO Q8HR #30 tablet 01/30/20 Unknown Rx Ibuprofen [Motrin] 800 mg PO Q8HR PRN #30 tablet 02/12/20 Unknown Rx lisinopriL [Zestril TAB] 10 mg PO QDAY #30 tablet 02/12/20 Unknown Rx Naproxen [EC-Naproxen] 500 mg PO BID PRN #14 tablet. 03/06/20 Unknown Rx traMADoL [Ultram 50 MG tab] 50 mg PO Q6HR PRN #8 tablet 06/25/20 Unknown Rx Allergies Allergy/AdvReac Type Severity Reaction Status Date / Time Penicillins Allergy Rash Verified 08/02/20 17:33 ED Review of Systems ROS: Stated complaint: CHEST PAIN Other details as noted in HPI ED Past Medical Hx - Past Medical History Hx Hypertension: Yes (PIH) Hx Congestive Heart Failure: No Hx Diabetes: No Hx Deep Vein Thrombosis: No Hx Renal Disease: No Hx Sickle Cell Disease: No Hx Seizures: No Hx Psychiatric Treatment: Yes (Depression) Hx Asthma: Yes Hx COPD: No Hx HIV: No Additional medical history: Implanon implant Apr 14, 2011, hypoglycemic, MORBID OBESITY - Surgical History Hx Appendectomy: Yes Additional Surgical History: , Removal of implanon 05-19-2014 - Social History Smoking Status: Never Smoker - Medications Home Medications: Home Medications Medication Instructions Recorded Confirmed Last Taken Type Vit No.130/Iron/Folic 1 each PO QDAY #30 tablet 01/23/16 09/08/16 1 Day Ago Rx [ Tablet] ~08/19/16 Ferrous Sulfate [Feosol 325 MG tab] 325 mg PO BID #60 tablet 09/07/16 Unknown Rx Vit Calc,Iron,Folic 1 each PO DAILY #30 tablet 09/07/16 Unknown Rx [ Vitamins] Fluticasone [Flonase] 1 spray NS QDAY #1 bottle 06/25/19 Unknown Rx Ibuprofen [Motrin 800 MG tab] 800 mg PO Q8HR PRN #30 tablet 09/06/19 Unknown Rx Ibuprofen [Motrin 800 MG tab] 800 mg PO Q8HR PRN #20 tablet 10/22/19 Unknown Rx Potassium Chloride [K-Dur] 20 meq PO QDAY #14 tablet 12/27/19 Unknown Rx Dicyclomine [Bentyl] 20 mg PO Q6H PRN #30 tablet 01/27/20 Unknown Rx Diphenoxylate/Atropine [Lomotil] 1 - 2 tab PO Q4H PRN #15 tablet 01/27/20 Unknown Rx Famotidine [Pepcid] 20 mg PO BID #60 tablet 01/27/20 Unknown Rx Ketorolac [Toradol] 10 mg PO Q8H PRN #20 tablet 01/27/20 Unknown Rx Ondansetron [Zofran Odt] 4 mg PO Q6HR PRN #20 tab.rapdis 01/27/20 Unknown Rx Acetaminophen/Codeine [Tylenol 1 tab PO Q6H PRN #12 tab 01/30/20 Unknown Rx /Codeine # 3 tab] Ciprofloxacin HCl [Ciprofloxacin 500 mg PO Q12HR #20 tab 01/30/20 Unknown Rx TAB] Ondansetron [Zofran Odt] 4 mg PO Q8HR PRN #12 tab.rapdis 01/30/20 Unknown Rx metroNIDAZOLE [Flagyl] 500 mg PO Q8HR #30 tablet 01/30/20 Unknown Rx Ibuprofen [Motrin] 800 mg PO Q8HR PRN #30 tablet 02/12/20 Unknown Rx lisinopriL [Zestril TAB] 10 mg PO QDAY #30 tablet 02/12/20 Unknown Rx Naproxen [EC-Naproxen] 500 mg PO BID PRN #14 tablet.dr 03/06/20 Unknown Rx traMADoL [Ultram 50 MG tab] 50 mg PO Q6HR PRN #8 tablet 06/25/20 Unknown Rx ED Physical Exam - General Limitations: No Limitations ED Course Vital Signs 08/02/20 17:35 Temperature 98.8 F Pulse Rate 75 Respiratory 20 Rate Blood Pressure 173/106 [Right] O2 Sat by Pulse 100 Oximetry Critical care attestation.: If time is entered above; I have spent that time in minutes in the direct care of this critically ill patient, excluding procedure time. ED Disposition Condition: Stable Instructions: Abdominal Pain (ED) Referrals: ROMÁN FROST [Other] - 3-5 Days
== END 2020-08-02 20:20 | disposition left against medical advice (07) ==
LOC: ED 16:40
DX: R10.13 Epigastric pain (principal); R07.89 Other chest pain; I10 Essential (primary) hypertension; F32.9 Major depressive disorder, single episode, unspecified; J45.909 Unspecified asthma, uncomplicated; Z90.49 Acquired absence of other specified parts of digestive tract; Z98.890 Other specified postprocedural states; Z79.1 Long term (current) use of non-steroidal anti-inflammatories (NSAID); Z79.899 Other long term (current) drug therapy; Z88.0 Allergy status to penicillin
CPT/HCPCS: 99282

== ENCOUNTER 2020-08-06 21:35 | Emergency (ER) | payer MEDICAID ==
--- NOTE | 2020-08-06 21:58 | Emergency Department Report ---
Blank Doc - Documentation Documentation: 30-year-old female that presents with right upper abdominal pain with radiation to right flank and with n/v. Was seen by PCP and came to the ED for worsening symptoms. 1- This initial assessment/diagnostic orders/clinical plan/ treatment(s) is/are subject to change based on pt's health status, clinical progression and re- assessment by fellow clinical providers in the ED. Further treatment and workup at subsequent clinical provers discretion. Patient/guardians urged not to elope from ED as their condition may be serious if not clinically assessed and managed. 2-labs 3-UA 4- US abd
[2020-08-06 22:45] LABS: Basophils # (Auto) 0.1 K/mm3 (0.0-0.1); Basophils % (Auto) 0.6 % (0.0-1.8); Eosinophils # (Auto) 0.2 K/mm3 (0.0-0.4); Eosinophils % (Auto) 1.5 % (0.0-4.3); Hematocrit 39.8 % (30.3-42.9); Hemoglobin 13.4 gm/dl (10.1-14.3); Lymphocytes # (Auto) 1.8 K/mm3 (1.2-5.4); Lymphocytes % (Auto) 15.9 % (13.4-35.0); Mean Corpuscular HGB Conc 34 % (30-34); Mean Corpuscular Volume 82 fl (79-97); Monocytes # (Auto) 0.6 K/mm3 (0.0-0.8); Monocytes % (Auto) 5.4 % (0.0-7.3); Platelet Count 317 K/mm3 (140-440); Red Blood Count 4.86 M/mm3 (3.65-5.03); Red Cell Distribution Width 13.6 % (13.2-15.2)
[2020-08-06 22:48] LABS: HCG Qualitative,Urine Negative (Negative)
[2020-08-06 22:52] LABS: Bacteria,Urine 2+ /HPF (Negative); Bilirubin,Urine NEG (Negative); Blood,Urine LG (Negative); Color,Urine Red (Yellow); Mucus,Urine 1+ /HPF; Urobilinogen,Urine < 2.0 mg/dL (<2.0)
[2020-08-06 22:54] LABS: RBC,Urine > 182.0 /HPF (0.0-6.0)
[2020-08-06 23:04] LABS: Alanine Aminotransferase 31 units/L (7-56); Albumin 4.4 g/dL (3.9-5); BUN/Creatinine Ratio 18; Blood Urea Nitrogen 9 mg/dL (7-17); Calcium 9.3 mg/dL (8.4-10.2); Hemolysis Index 3
--- NOTE | 2020-08-06 23:47 | Ultrasound Report ---
ULTRASOUND ABDOMEN, COMPLETE INDICATION / CLINICAL INFORMATION: abd pain. COMPARISON: CT from 01/27/2020 FINDINGS: Examination limited due to body habitus and overlying bowel gas. PANCREAS: The pancreas is largely obscured by shadowing from overlying bowel gas. ABDOMINAL AORTA: Mid and distal aorta are not well seen. Proximal aorta is within normal limits. IVC: No significant abnormality. LIVER: The liver measures 15.6 cm in length. The liver demonstrates increased echogenicity, compatib le with fatty infiltration. No focal hepatic lesion. PORTAL VEIN: Normal hepatopedal blood flow in the main portal vein. GALLBLADDER: Gallbladder is contracted, without no evidence of acute abnormality. BILE DUCTS: No significant abnormality. Common bile duct measures 2 mm. KIDNEYS: Right: No significant abnormality. Left: No significant abnormality. SPLEEN: No significant abnormality. FREE FLUID: None. ADDITIONAL FINDINGS: None. IMPRESSION: 1. Fatty infiltration of the liver. 2. Contracted gallbladder, without evidence of acute abnormality. 3. Limited but otherwise grossly unremarkable abdominal ultrasound. Signer Name: Hardy Philippe MD Signed: 08/06/2020 11:42 PM Workstation Name: [id number]
[2020-08-06] MEDS ORDERED: SODIUM CHLORIDE 0.9% 1000 ML 1,000 ML IV ONE (23:52)
[2020-08-06] MEDS ORDERED: ONDANSETRON 4 MG/2 ML INJ IV ONE (23:52)
[2020-08-06] MEDS ORDERED: FAMOTIDINE 20 MG/2 ML INJ IV ONE (23:53)
[2020-08-06] MEDS ORDERED: diphenhydrAMINE 50 MG/ML VIAL IV ONE (23:53)
--- NOTE | 2020-08-07 00:18 | Emergency Department Report ---
ED Abdominal Pain HPI - General Chief Complaint: Abdominal Pain Stated Complaint: ABDOMINAL PAIN Time Seen by Provider: 08/06/20 21:56 Source: patient Mode of arrival: Ambulatory Limitations: No Limitations - History of Present Illness Initial Comments: This is a 30-year-old female nontoxic, well nourished in appearance, no acute signs of distress presents to the ED with c/o of nausea and vomiting and right upper abdominal pain several days. Patient describes vomiting as food content and yellow gastric acid. Patient describes abdominal pain as cramping and aching with level of 8/10. Patient stated she started her menstrual cycle today. Patient denies chest pain, short of breath, fever, hemoptysis, blood in stool, chills, headache, stiff neck, numbness or tingling. Patient denies any diarrhea or constipation. Denies any blood in stool. Patient denies any recent travels. Patient stated allergies to penicillin. MD Complaint: abdominal pain -: days(s) Location: RUQ Radiation: R flank Migration to: no migration Severity: mild Severity scale (0 -10): 8 Quality: cramping, aching Consistency: constant Improves With: nothing Worsens With: nothing Associated Symptoms: nausea, vomiting. denies: diarrhea, fever, chills, constipation, dysuria, hematemesis, hematochezia, melena, hematuria, anorexia, syncope - Related Data Previous Rx's Medication Instructions Recorded Last Taken Type Vit No.130/Iron/Folic 1 each PO QDAY #30 tablet 01/23/16 1 Day Ago Rx [ Tablet] ~08/19/16 Ferrous Sulfate [Feosol 325 MG tab] 325 mg PO BID #60 tablet 09/07/16 Unknown Rx Vit Calc,Iron,Folic 1 each PO DAILY #30 tablet 09/07/16 Unknown Rx [ Vitamins] Fluticasone [Flonase] 1 spray NS QDAY #1 bottle 06/25/19 Unknown Rx Ibuprofen [Motrin 800 MG tab] 800 mg PO Q8HR PRN #30 tablet 09/06/19 Unknown Rx Ibuprofen [Motrin 800 MG tab] 800 mg PO Q8HR PRN #20 tablet 10/22/19 Unknown Rx Potassium Chloride [K-Dur] 20 meq PO QDAY #14 tablet 12/27/19 Unknown Rx Dicyclomine [Bentyl] 20 mg PO Q6H PRN #30 tablet 01/27/20 Unknown Rx Diphenoxylate/Atropine [Lomotil] 1 - 2 tab PO Q4H PRN #15 tablet 01/27/20 Unknown Rx Famotidine [Pepcid] 20 mg PO BID #60 tablet 01/27/20 Unknown Rx Ketorolac [Toradol] 10 mg PO Q8H PRN #20 tablet 01/27/20 Unknown Rx Ondansetron [Zofran Odt] 4 mg PO Q6HR PRN #20 tab.rapdis 01/27/20 Unknown Rx Acetaminophen/Codeine [Tylenol 1 tab PO Q6H PRN #12 tab 01/30/20 Unknown Rx /Codeine # 3 tab] Ciprofloxacin HCl [Ciprofloxacin 500 mg PO Q12HR #20 tab 01/30/20 Unknown Rx TAB] Ondansetron [Zofran Odt] 4 mg PO Q8HR PRN #12 tab.rapdis 01/30/20 Unknown Rx metroNIDAZOLE [Flagyl] 500 mg PO Q8HR #30 tablet 01/30/20 Unknown Rx Ibuprofen [Motrin] 800 mg PO Q8HR PRN #30 tablet 02/12/20 Unknown Rx lisinopriL [Zestril TAB] 10 mg PO QDAY #30 tablet 02/12/20 Unknown Rx Naproxen [EC-Naproxen] 500 mg PO BID PRN #14 tablet.dr 03/06/20 Unknown Rx traMADoL [Ultram 50 MG tab] 50 mg PO Q6HR PRN #8 tablet 06/25/20 Unknown Rx Ondansetron [Zofran Odt] 4 mg PO Q8HR PRN #12 tab.rapdis 08/07/20 Unknown Rx Sulfamethoxazole/Trimethoprim 1 each PO BID #14 tablet 08/07/20 Unknown Rx [Bactrim DS TAB] Allergies Allergy/AdvReac Type Severity Reaction Status Date / Time Penicillins Allergy Rash Verified 08/02/20 17:33 ED Review of Systems ROS: Stated complaint: ABDOMINAL PAIN Other details as noted in HPI Comment: All other systems reviewed and negative Constitutional: denies: chills, fever Eyes: denies: eye pain, eye discharge, vision change ENT: denies: ear pain, throat pain Respiratory: denies: cough, shortness of breath, wheezing Cardiovascular: denies: chest pain, palpitations Endocrine: no symptoms reported Gastrointestinal: abdominal pain, nausea, vomiting. denies: diarrhea, constipation, hematemesis, melena, hematochezia Genitourinary: denies: urgency, dysuria, discharge Musculoskeletal: denies: back pain, joint swelling, arthralgia Skin: denies: rash, lesions Neurological: denies: headache, weakness, paresthesias Psychiatric: denies: anxiety, depression Hematological/Lymphatic: denies: easy bleeding, easy bruising ED Past Medical Hx - Past Medical History Previous Medical History?: Yes Hx Hypertension: Yes (PIH) Hx Congestive Heart Failure: No Hx Diabetes: No Hx Deep Vein Thrombosis: No Hx Renal Disease: No Hx Sickle Cell Disease: No Hx Seizures: No Hx Psychiatric Treatment: Yes (Depression) Hx Asthma: Yes Hx COPD: No Hx HIV: No Additional medical history: Implanon implant Apr 14, 2011, hypoglycemic, MORBID OBESITY - Surgical History Past Surgical History?: Yes Hx Appendectomy: Yes Additional Surgical History: , Removal of implanon 05-19-2014 - Social History Smoking Status: Never Smoker Substance Use Type: None - Medications Home Medications: Home Medications Medication Instructions Recorded Confirmed Last Taken Type Vit No.130/Iron/Folic 1 each PO QDAY #30 tablet 01/23/16 09/08/16 1 Day Ago Rx [ Tablet] ~08/19/16 Ferrous Sulfate [Feosol 325 MG tab] 325 mg PO BID #60 tablet 09/07/16 Unknown Rx Vit Calc,Iron,Folic 1 each PO DAILY #30 tablet 09/07/16 Unknown Rx [ Vitamins] Fluticasone [Flonase] 1 spray NS QDAY #1 bottle 06/25/19 Unknown Rx Ibuprofen [Motrin 800 MG tab] 800 mg PO Q8HR PRN #30 tablet 09/06/19 Unknown Rx Ibuprofen [Motrin 800 MG tab] 800 mg PO Q8HR PRN #20 tablet 10/22/19 Unknown Rx Potassium Chloride [K-Dur] 20 meq PO QDAY #14 tablet 12/27/19 Unknown Rx Dicyclomine [Bentyl] 20 mg PO Q6H PRN #30 tablet 01/27/20 Unknown Rx Diphenoxylate/Atropine [Lomotil] 1 - 2 tab PO Q4H PRN #15 tablet 01/27/20 Unknown Rx Famotidine [Pepcid] 20 mg PO BID #60 tablet 01/27/20 Unknown Rx Ketorolac [Toradol] 10 mg PO Q8H PRN #20 tablet 01/27/20 Unknown Rx Ondansetron [Zofran Odt] 4 mg PO Q6HR PRN #20 tab.rapdis 01/27/20 Unknown Rx Acetaminophen/Codeine [Tylenol 1 tab PO Q6H PRN #12 tab 01/30/20 Unknown Rx /Codeine # 3 tab] Ciprofloxacin HCl [Ciprofloxacin 500 mg PO Q12HR #20 tab 01/30/20 Unknown Rx TAB] Ondansetron [Zofran Odt] 4 mg PO Q8HR PRN #12 tab.rapdis 01/30/20 Unknown Rx metroNIDAZOLE [Flagyl] 500 mg PO Q8HR #30 tablet 01/30/20 Unknown Rx Ibuprofen [Motrin] 800 mg PO Q8HR PRN #30 tablet 02/12/20 Unknown Rx lisinopriL [Zestril TAB] 10 mg PO QDAY #30 tablet 02/12/20 Unknown Rx Naproxen [EC-Naproxen] 500 mg PO BID PRN #14 tablet. 03/06/20 Unknown Rx traMADoL [Ultram 50 MG tab] 50 mg PO Q6HR PRN #8 tablet 06/25/20 Unknown Rx Ondansetron [Zofran Odt] 4 mg PO Q8HR PRN #12 tab.rapdis 08/07/20 Unknown Rx Sulfamethoxazole/Trimethoprim 1 each PO BID #14 tablet 08/07/20 Unknown Rx [Bactrim DS TAB] ED Physical Exam - General Limitations: No Limitations General appearance: alert, in no apparent distress - Head Head exam: Present: atraumatic, normocephalic - Eye Eye exam: Present: normal appearance - Neck Neck exam: Present: normal inspection, full ROM - Respiratory Respiratory exam: Present: normal lung sounds bilaterally. Absent: respiratory distress, wheezes, rales, rhonchi, stridor, chest wall tenderness, accessory muscle use, decreased breath sounds, prolonged expiratory - Cardiovascular Cardiovascular Exam: Present: regular rate, normal rhythm, normal heart sounds. Absent: irregular rhythm, systolic murmur, diastolic murmur, rubs, gallop - GI/Abdominal GI/Abdominal exam: Present: soft, tenderness (RUQ), normal bowel sounds. Absent: distended, guarding, rebound, rigid, diminished bowel sounds - Extremities Exam Extremities exam: Present: full ROM - Back Exam Back exam: Present: normal inspection, full ROM. Absent: tenderness, CVA tenderness (R), CVA tenderness (L), muscle spasm, paraspinal tenderness, vertebral tenderness, rash noted - Neurological Exam Neurological exam: Present: alert, oriented X3, normal gait - Psychiatric Psychiatric exam: Present: normal affect, normal mood - Skin Skin exam: Present: warm, dry, intact, normal color. Absent: rash ED Course Vital Signs 08/06/20 22:19 Temperature 98.3 F Pulse Rate 107 H Respiratory 18 Rate Blood Pressure 159/111 [Left] O2 Sat by Pulse 99 Oximetry - Reevaluation(s) Reevaluation #1: 08/07/20 00:16 Patient is speaking in full sentences with no signs of distress noted. ED Medical Decision Making - Lab Data Result diagrams: 08/06/20 22:07 08/06/20 22:07 Lab Results 08/06/20 08/06/20 08/06/20 Range/Units 22:07 22:07 22:10 WBC 11.5 H (4.5-11.0) K/mm3 RBC 4.86 (3.65-5.03) M/mm3 Hgb 13.4 (10.1-14.3) gm/dl Hct 39.8 (30.3-42.9) % MCV 82 (79-97) fl MCH 28 (28-32) pg MCHC 34 (30-34) % RDW 13.6 (13.2-15.2) % Plt Count 317 (140-440) K/mm3 Lymph % (Auto) 15.9 (13.4-35.0) % [place] % (Auto) 5.4 (0.0-7.3) % Eos % (Auto) 1.5 (0.0-4.3) % Baso % (Auto) 0.6 (0.0-1.8) % Lymph # (Auto) 1.8 (1.2-5.4) K/mm3 [place] # (Auto) 0.6 (0.0-0.8) K/mm3 Eos # (Auto) 0.2 (0.0-0.4) K/mm3 Baso # (Auto) 0.1 (0.0-0.1) K/mm3 Seg Neutrophils % 76.6 H (40.0-70.0) % Seg Neutrophils # 8.8 H (1.8-7.7) K/mm3 Sodium 138 (137-145) mmol/L Potassium 3.2 L (3.6-5.0) mmol/L Chloride 101.2 (98-107) mmol/L Carbon Dioxide 26 (22-30) mmol/L Anion Gap 14 mmol/L BUN 9 (7-17) mg/dL Creatinine 0.5 L (0.6-1.2) mg/dL Estimated GFR > 60 ml/min BUN/Creatinine Ratio 18 % Glucose 96 (65-100) mg/dL Calcium 9.3 (8.4-10.2) mg/dL Total Bilirubin 0.30 (0.1-1.2) mg/dL AST 25 (5-40) units/L ALT 31 (7-56) units/L Alkaline Phosphatase 113 (35-129) units/L Total Protein 8.1 (6.3-8.2) g/dL Albumin 4.4 (3.9-5) g/dL Albumin/Globulin Ratio 1.2 % Lipase 16 (13-60) units/L Urine Color Red (Yellow) Urine Turbidity Cloudy (Clear) Urine pH 6.0 (5.0-7.0) Ur Specific [place] 1.026 (1.003-1.030) Urine Protein 100 mg/dl (Negative) mg/dL Urine Glucose (UA) Neg (Negative) mg/dL Urine Ketones Neg (Negative) mg/dL Urine Blood Lg (Negative) Urine Nitrite Neg (Negative) Ur Reducing Substances Not Reportable Urine Bilirubin Neg (Negative) Urine Ictotest Not Reportable Urine Urobilinogen < 2.0 (<2.0) mg/dL Ur Leukocyte Esterase Tr (Negative) Urine WBC (Auto) 149.0 H (0.0-6.0) /HPF Urine RBC (Auto) > 182.0 (0.0-6.0) /HPF Urine Bacteria (Auto) 2+ (Negative) /HPF Urine WBC Clumps 3+ /HPF Urine Mucus 1+ /HPF Urine Yeast (Budding) 2+ /HPF Urine HCG, Qual Negative (Negative) - Radiology Data Referring Physician: JOÃO WILDER Patient Name: SHAWANDA MILIAN Date of : 1990 Sex: Female Report Date: 2020-08-06 Report Status: Finalized [facility] [address] [place] [address] Ultrasound Report Signed Patient: SHAWANDA MILIAN MR#: [id number] : 1990 Acct:[id number] Age/Sex: 30 / F ADM Date: 08/06/20 Loc: ED Attending Dr: Ordering Physician: JOÃO WILDER NP Date of Service: 08/06/20 Procedure(s): US abdomen complete Accession Number(s): [id number] cc: JOÃO WILDER NP ULTRASOUND ABDOMEN, COMPLETE INDICATION / CLINICAL INFORMATION: abd pain. COMPARISON: CT from 01/27/2020 FINDINGS: Examination limited due to body habitus and overlying bowel gas. PANCREAS: The pancreas is largely obscured by shadowing from overlying bowel gas. ABDOMINAL AORTA: Mid and distal aorta are not well seen. Proximal aorta is within normal limits. IVC: No significant abnormality. LIVER: The liver measures 15.6 cm in length. The liver demonstrates increased echogenicity, compatible with fatty infiltration. No focal hepatic lesion. PORTAL VEIN: Normal hepatopedal blood flow in the main portal vein. GALLBLADDER: Gallbladder is contracted, without no evidence of acute abnormality. BILE DUCTS: No significant abnormality. Common bile duct measures 2 mm. KIDNEYS: Right: No significant abnormality. Left: No significant abnormality. SPLEEN: No significant abnormality. FREE FLUID: None. ADDITIONAL FINDINGS: None. IMPRESSION: 1. Fatty infiltration of the liver. 2. Contracted gallbladder, without evidence of acute abnormality. 3. Limited but otherwise grossly unremarkable abdominal ultrasound. Signer Name: Gurdeep Philippe MD Signed: 08/06/2020 11:42 PM Workstation Name: [id number] Transcribed By: JS Dictated By: GURDEEP PHILIPPE MD Electronically Authenticated By: GURDEEP PHILIPPE MD Signed Date/Time: 08/06/20 234 DD/ 38 TD/TT: Referring Physician: MATI SOMERS Patient Name: SHAWANDA MILIAN Date of : 1990 Sex: Female Report Date: 2020-08-07 Report Status: Finalized [facility] [address] [place] [id number] Cat Scan Report Signed Patient: SHAWANDA MILIAN MR#: [id number] : 1990 Acct:[id number] Age/Sex: 30 / F ADM Date: 08/06/20 Loc: ED Attend ing Dr: Ordering Physician: MATI SOMERS DO Date of Service: 08/07/20 Procedure(s): CT abdomen pelvis w con Accession Number(s): [id number] cc: MATI SOMERS DO CT ABDOMEN AND PELVIS WITH CONTRAST INDICATION / CLINICAL INFORMATION: R.U.Q. abdominal pain with N/V and radiating to the RIGHT flank.. TECHNIQUE: Axial CT images were obtained through the abdomen and pelvis after IV contrast. All CT scans at this location are performed using CT dose reduction for ALARA by means of automated exposure control. COMPARISON: Ultrasound from earlier today. FINDINGS: LOWER CHEST: No significant abnormality LIVER: Mild hepatic steatosis. GALLBLADDER/BILIARY TREE: No significant abnormality PANCREAS: No sig nificant abnormality SPLEEN: No significant abnormality ADRENALS: No significant abnormality KIDNEYS / URETER: No significant abnormality URINARY BLADDER: No significant abnormality REPRODUCTIVE ORGANS: No significant abnormality STOMACH / SMALL BOWEL: Stomach and small bowel are normal in caliber. No evidence of bowel inflammation. COLON: Colon is decompressed without acute abnormality. The appendix is not visualized, compatible with history of appendectomy. LYMPH NODES: No significant adenopathy. VASCULATURE: No significant abnormality. OTHER: No free air, free fluid, or focal fluid collection is identified. SKELETAL SYSTEM: No acute osseous findings. IMPRESSION: No acute abnormality of the abdomen or pelvis. Signer Name: Gurdeep Philippe MD Signed: 08/07/2020 1:05 AM Workstation Name: [id number] Transcribed By: JS Dictated By: GURDEEP PHILIPPE MD Electronically Authenticated By: GURDEEP PHILIPPE MD Signed Date/Time: 08/07/20104 DD/ 1 TD/TT: - Medical Decision Making This is a 30-year-old male that presents with UTI, abdominal pain with nausea vomiting. Patient is stable and was examined by me. There is no abdominal tenderness. Negative signs of symptoms of appendicitis. Labs obtained. UA obtained. CT of abdomen obtained and dictated by the radiologist. Patient is notified of the report with no questions noted by the patient. Vital signs are stable prior to discharge. Patient received medical treatment in the ED which patient stated symptoms has resovled and subsided. Was instructed note to operate any machinery due to possible drowsiness and stated someone will drive the patient home. A by mouth challenge has been obtained and patient tolerated well with no nausea vomiting. Patient was notified of strict precatuions of appendictis symptoms and to return to the ED if symptoms occurs as soon as po ssible. Patient was also instructed to Follow-up with a primary care doctor in 3-5 days or if symptoms worsen and continue return to emergency room as soon as possible. At time of discharge, the patient does not seem toxic or ill in appearance. No acute signs of distress noted. Patient agrees to discharge treatment plan of care. No further questions noted by the patient. Critical care attestation.: If time is entered above; I have spent that time in minutes in the direct care of this critically ill patient, excluding procedure time. 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 Prescriptions: Sulfamethoxazole/Trimethoprim [Bactrim DS TAB] 1 each PO BID #14 tablet Ondansetron [Zofran Odt] 4 mg PO Q8HR PRN #12 tab.rapdis PRN Reason: Nausea Referrals: KIM RUIZ MD [Primary Care Provider] - 3-5 Days PRIMARY CAREMD [Referring] - 3-5 Days [facility] [Provider Group] - 3-5 Days Time of Disposition: 01:13
--- NOTE | 2020-08-07 01:09 | Cat Scan Report ---
CT ABDOMEN AND PELVIS WITH CONTRAST INDICATION / CLINICAL INFORMATION: R.U.Q. abdominal pain with N/V and radiating to the RIGHT flank.. TECHNIQUE: Axial CT images were obtained through the abdomen and pelvis after IV contrast. All CT sc ans at this location are performed using CT dose reduction for ALARA by means of automated exposure c ontrol. COMPARISON: Ultrasound from earlier today. FINDINGS: LOWER CHEST: No significant abnormality LIVER: Mild hepatic steatosis. GALLBLADDER/BILIARY TREE: No significant abnormality PANCREAS: No significant abnormality SPLEEN: No significant abnormality ADRENALS: No significant abnormality KIDNEYS / URETER: No significant abnormality URINARY BLADDER: No significant abnormality REPRODUCTIVE ORGANS: No significant abnormality STOMACH / SMALL BOWEL: Stomach and small bowel are normal in caliber. No evidence of bowel inflammati on. COLON: Colon is decompressed without acute abnormality. The appendix is not visualized, compatible wi th history of appendectomy. LYMPH NODES: No significant adenopathy. VASCULATURE: No significant abnormality. OTHER: No free air, free fluid, or focal fluid collection is identified. SKELETAL SYSTEM: No acute osseous findings. IMPRESSION: No acute abnormality of the abdomen or pelvis. Signer Name: Hardy Philippe MD Signed: 08/07/2020 1:05 AM Workstation Name: [email or web address]
[2020-08-07 02:22] VITALS: BP 124/76
== END 2020-08-07 02:22 | disposition home or self-care (01) ==
LOC: ED 21:35
DX: R10.11 Right upper quadrant pain (principal); R11.2 Nausea with vomiting, unspecified; I10 Essential (primary) hypertension; F32.9 Major depressive disorder, single episode, unspecified; J45.909 Unspecified asthma, uncomplicated; Z90.49 Acquired absence of other specified parts of digestive tract; Z98.890 Other specified postprocedural states; Z79.1 Long term (current) use of non-steroidal anti-inflammatories (NSAID); Z79.899 Other long term (current) drug therapy; Z88.0 Allergy status to penicillin
CPT/HCPCS: 36415; 74177; 76700; 80053; 81001; 81025; 83690; 85025; 96361; 96374; 96375; 99284; J1200; J2405; J7030; Q9967

== ENCOUNTER 2020-10-11 18:59 | Emergency (ER) | payer MEDICAID ==
[2020-10-11] MEDS ORDERED: LIDOCAINE VISCOUS 2% 15 ML ORAL LIQD PO ONE (21:55)
[2020-10-11] MEDS ORDERED: HYDROcodone/ACETAMINOPHEN 5-325 MG TAB PO ONE (21:55)
--- NOTE | 2020-10-11 22:00 | Emergency Department Report ---
HPI - General Chief Complaint: Chest Pain Time Seen by Provider: 10/11/20 21:47 - HPI HPI: Room 20 Patient is a 30-year-old female present with a chief complaint of sore throat. Patient states for the past 2 days she has had a sore throat and painful s wallowing. Patient states she feels as though her throat is swelling. Patient states today she developed intermittent anterior neck pain shoulder and chest soreness. Patient states occasionally she has abdominal cramping. Patient denies history of fever or cough. Patient denies nausea/vomiting but states she has dyspnea on exertion. Patient denies any sick contacts. Patient currently gives her throat pain a score of 8/10. ED Past Medical Hx - Past Medical History Previous Medical History?: Yes Hx Hypertension: Yes (PIH) Hx Psychiatric Treatment: Yes (Depression) Hx Asthma: Yes Additional medical history: Implanon implant Apr 14, 2011, hypoglycemic, MORBID OBESITY - Surgical History Past Surgical History?: Yes Hx Appendectomy: Yes Additional Surgical History: , Removal of implanon 05-19-2014 - Family History Family history: no significant - Social History Smoking Status: Never Smoker Substance Use Type: None (Denies illicit drug use), Alcohol (Occasional) - Medications Home Medications: Home Medications Medication Instructions Recorded Confirmed Last Taken Type Vit No.130/Iron/Folic 1 each PO QDAY #30 tablet 01/23/16 09/08/16 1 Day Ago Rx [ Tablet] ~08/19/16 Ferrous Sulfate [Feosol 325 MG tab] 325 mg PO BID #60 tablet 09/07/16 Unknown Rx Vit Calc,Iron,Folic 1 each PO DAILY #30 tablet 09/07/16 Unknown Rx [ Vitamins] Fluticasone [Flonase] 1 spray NS QDAY #1 bottle 06/25/19 Unknown Rx Ibuprofen [Motrin 800 MG tab] 800 mg PO Q8HR PRN #30 tablet 09/06/19 Unknown Rx Ibuprofen [Motrin 800 MG tab] 800 mg PO Q8HR PRN #20 tablet 10/22/19 Unknown Rx Potassium Chloride [K-Dur] 20 meq PO QDAY #14 tablet 12/27/19 Unknown Rx Dicyclomine [Bentyl] 20 mg PO Q6H PRN #30 tablet 01/27/20 Unknown Rx Diphenoxylate/Atropine [Lomotil] 1 - 2 tab PO Q4H PRN #15 tablet 01/27/20 Unknown Rx Famotidine [Pepcid] 20 mg PO BID #60 tablet 01/27/20 Unknown Rx Ketorolac [Toradol] 10 mg PO Q8H PRN #20 tablet 01/27/20 Unknown Rx Ondansetron [Zofran Odt] 4 mg PO Q6HR PRN #20 tab.rapdis 01/27/20 Unknown Rx Acetaminophen/Codeine [Tylenol 1 tab PO Q6H PRN #12 tab 01/30/20 Unknown Rx /Codeine # 3 tab] Ciprofloxacin HCl [Ciprofloxacin 500 mg PO Q12HR #20 tab 01/30/20 Unknown Rx TAB] Ondansetron [Zofran Odt] 4 mg PO Q8HR PRN #12 tab.rapdis 01/30/20 Unknown Rx metroNIDAZOLE [Flagyl] 500 mg PO Q8HR #30 tablet 01/30/20 Unknown Rx Ibuprofen [Motrin] 800 mg PO Q8HR PRN #30 tablet 02/12/20 Unknown Rx lisinopriL [Zestril TAB] 10 mg PO QDAY #30 tablet 02/12/20 Unknown Rx Naproxen [EC-Naproxen] 500 mg PO BID PRN #14 tablet. 03/06/20 Unknown Rx traMADoL [Ultram 50 MG tab] 50 mg PO Q6HR PRN #8 tablet 06/25/20 Unknown Rx Ondansetron [Zofran Odt] 4 mg PO Q8HR PRN #12 tab.rapdis 08/07/20 Unknown Rx Sulfamethoxazole/Trimethoprim 1 each PO BID #14 tablet 08/07/20 Unknown Rx [Bactrim DS TAB] Clindamycin [Clindamycin CAP] 300 mg PO Q6H #28 capsule 10/12/20 Unknown Rx HYDROcodone/APAP 5-325 [[place] 1 - 2 each PO Q6HR PRN #10 tablet 10/12/20 Unknown Rx 5/325] Ibuprofen [Motrin 800 MG tab] 800 mg PO Q8HR PRN #20 tablet 10/12/20 Unknown Rx ED Review of Systems ROS: Stated complaint: NECK/SHOULDER PAIN Other details as noted in HPI Constitutional: denies: fever Eyes: denies: eye pain ENT: throat pain Respiratory: SOB with exertion. denies: cough Cardiovascular: as per HPI Endocrine: no symptoms reported Gastrointestinal: denies: nausea, vomiting Genitourinary: denies: dysuria Musculoskeletal: myalgia Neurological: denies: headache Hematological/Lymphatic: other (Tender lymphadenopathy) Physical Exam - Physical Exam Vital Signs: Vital Signs 10/11/20 19:53 Temperature 98.8 F Pulse Rate 88 Respiratory 18 Rate Blood Pressure 141/79 O2 Sat by Pulse 100 Oximetry Physical Exam: GENERAL: The patient is well-developed well-nourished female lying on stretcher not appearing to be in acute distress. [] HEENT: Normocephalic. Atraumatic. Extraocular motions are intact. Patient has moist mucous membranes. Trace erythema right oropharynx. No exudate appreciated. Uvula midline NECK: Supple. No stridor. There is tender bilateral cervical adenopathy noted. CHEST/LUNGS: Clear to auscultation. There is no respiratory distress noted. HEART/CARDIOVASCULAR: Regular. There is no tachycardia. There is no gallop rub or murmur. ABDOMEN: Abdomen is soft, nontender. Patient has normal bowel sounds. There is no abdominal distention. SKIN: There is no rash. There is no edema. There is no diaphoresis. NEURO: The patient is awake, alert, and oriented. The patient is cooperative. The patient has no focal neurologic deficits. The patient has normal speech MUSCULOSKELETAL: There is no evidence of acute injury. ED Course Vital Signs 10/11/20 19:53 Temperature 98.8 F Pulse Rate 88 Respiratory 18 Rate Blood Pressure 141/79 O2 Sat by Pulse 100 Oximetry ED Medical Decision Making - Lab Data Result diagrams: 10/11/20 22:08 10/11/20 22:08 Laboratory Tests 10/11/20 10/11/20 10/11/20 22:08 22:08 22:08 WBC 9.5 RBC 4.46 Hgb 12.6 Hct 36.8 MCV 83 MCH 28 MCHC 34 RDW 13.9 Plt Count 302 Lymph % (Auto) 20.0 [place] % (Auto) 6.1 Eos % (Auto) 2.1 Baso % (Auto) 0.8 Lymph # (Auto) 1.9 [place] # (Auto) 0.6 Eos # (Auto) 0.2 Baso # (Auto) 0.1 Seg Neutrophils % 71.0 H Seg Neutrophils # 6.7 Sodium 136 L Potassium 3.6 Chloride 100.8 Carbon Dioxide 25 Anion Gap 14 BUN 7 Creatinine 0.6 Estimated GFR > 60 BUN/Creatinine Ratio 12 Glucose 86 Calcium 8.7 Total Creatine Kinase 60 CK-MB (CK-2) < 1.0 CK-MB (CK-2) Rel Index 1.6 Troponin T < 0.010 NT-Pro-B Natriuret Pep 64.54 HCG, Qual Negative 10/12/20 01:44 WBC RBC Hgb Hct MCV MCH MCHC RDW Plt Count Lymph % (Auto) [place] % (Auto) Eos % (Auto) Baso % (Auto) Lymph # (Auto) [place] # (Auto) Eos # (Auto) Baso # (Auto) Seg Neutrophils % Seg Neutrophils # Sodium Potassium Chloride Carbon Dioxide Anion Gap BUN Creatinine Estimated GFR BUN/Creatinine Ratio Glucose Calcium Total Creatine Kinase CK-MB (CK-2) CK-MB (CK-2) Rel Index Troponin T < 0.010 NT-Pro-B Natriuret Pep HCG, Qual - EKG Data -: EKG Interpreted by Me EKG shows normal: sinus rhythm Rate: normal - EKG Data When compared to previous EKG there are: previous EKG unavailable Interpretation: nonspecific ST-T wave jamal (T wave inversion in lead III) - Radiology Data Radiology results: report reviewed (Chest x-ray, lateral soft tissue neck x- ray), image reviewed (Chest x-ray, lateral soft tissue neck x-ray) interpreted by me: Chest x-ray-no focal infiltrates, no pneumothorax. No foreign body seen Lateral soft tissue neck x-ray-no prevertebral swelling, no evidence of epiglottitis. Airway patent [facility] [address] [place] [address] XRay Report Signed Patient: SHAWANDA MILIAN MR#: [id number] : 1990 Acct:[id number] Age/Sex: 30 / F ADM Date: 10/11/20 Loc: ED Attending Dr: Ordering Physician: LONG WEST MD Date of Service: 10/11/20 Procedure(s): XR chest routine 2V Accession Number(s): [id number] cc: LONG WEST MD Fluoro Time In Minutes: CHEST 2 VIEWS INDICATION / CLINICAL INFORMATION: chest pain. COMPARISON: Chest radiograph 06/24/2020 FINDINGS: SUPPORT DEVICES: None. HEART / MEDIASTINUM: No significant abnormality. LUNGS / PLEURA: No significant pulmonary or pleural abnormality. No pneumothorax. ADDITIONAL FINDINGS: No significant additional findings. IMPRESSION: 1. No acute findings. Signer Name: Lakshmi Mccullough MD Signed: 10/11/2020 10:54 PM Workstation Name: [id number] Transcribed By: [facility] Dictated By: Lakshmi Mccullough MD Electronically Authenticated By: Lakshmi Mccullough MD Signed Date/Time: 10/11/202253 DD/ 52 TD/TT: Print Cancel [facility] [address] [place] [address] XRay Report Signed Patient: SHAWANDA MILIAN MR#: [id number] : 1990 Acct:[id number] Age/Sex: 30 / F ADM Date: 10/11/20 Loc: ED Attending Dr: Ordering Physician: LONG WEST MD Date of Service: 10/11/20 Procedure(s): XR neck soft tissue Accession Number(s): [id number] cc: LONG WEST MD Fluoro Time In Minutes: XR NECK SOFT TISSUE, 2 VIEWS INDICATION / CLINICAL INFORMATION: Sore throat. COMPARISON: None available. FINDINGS: The airway appears patent. P revertebral soft tissues are within normal limits. No significant osseous abnormality. Signer Name: Lakshmi Mccullough MD Signed: 10/11/2020 10:53 PM Workstation Name: [id number] Transcribed By: [facility] Dictated By: Lakshmi Mccullough MD Electronically Authenticated By: Lakshmi Mccullough MD Signed Date/Time: 10/11/202252 DD/ 50 TD/TT: Print Cancel - Differential Diagnosis Pharyngitis, retropharyngeal abscess, epiglottitis, ACS, Critical care attestation.: If time is entered above; I have spent that time in minutes in the direct care of this critically ill patient, excluding procedure time. ED Disposition Clinical Impression: Pharyngitis Disposition: DC-01 TO HOME OR SELFCARE Is pt being admited?: No Does the pt Need Aspirin: No Condition: Stable Instructions: Pharyngitis, [id number] Additional Instructions: Return to the emergency department should you develop worsening symptoms, inability to tolerate food or liquids, high fever or any other concerns Prescriptions: Clindamycin [Clindamycin CAP] 300 mg PO Q6H #28 capsule Ibuprofen [Motrin 800 MG tab] 800 mg PO Q8HR PRN #20 tablet PRN Reason: Pain, Moderate (4-6) HYDROcodone/APAP 5-325 [[place] 5/325] 1 - 2 each PO Q6HR PRN #10 tablet PRN Reason: Pain Referrals: PRIMARY CAREMD [Referring] - 3-5 Days CURITS HICKMAN MD [Staff Physician] - 3-5 Days Time of Disposition: 02:24 Heart Score - HEART Score History: Slightly suspicious EKG: Non-specific Age: < 45 Risk factors: 1-2 risk factors Troponin: < normal limit HEART Score: 2 - EKG Read Time Time EKG Completed: 19:57 EKG Read Time: 20:01
[2020-10-11 22:25] LABS: Basophils # (Auto) 0.1 K/mm3 (0.0-0.1); Basophils % (Auto) 0.8 % (0.0-1.8); Eosinophils # (Auto) 0.2 K/mm3 (0.0-0.4); Eosinophils % (Auto) 2.1 % (0.0-4.3); Hematocrit 36.8 % (30.3-42.9); Hemoglobin 12.6 gm/dl (10.1-14.3); Lymphocytes # (Auto) 1.9 K/mm3 (1.2-5.4); Mean Corpuscular HGB Conc 34 % (30-34); Mean Corpuscular Volume 83 fl (79-97); Monocytes # (Auto) 0.6 K/mm3 (0.0-0.8); Monocytes % (Auto) 6.1 % (0.0-7.3); Platelet Count 302 K/mm3 (140-440); Red Blood Count 4.46 M/mm3 (3.65-5.03); Red Cell Distribution Width 13.9 % (13.2-15.2)
[2020-10-11 22:44] LABS: Blood Urea Nitrogen 7 mg/dL (7-17); Calcium 8.7 mg/dL (8.4-10.2); Hemolysis Index 17
[2020-10-11 22:46] LABS: BUN/Creatinine Ratio 12
[2020-10-11 22:47] LABS: Creatine Kinase MB < 1.0 ng/mL (0.0-4.0)
--- NOTE | 2020-10-11 22:57 | XRay Report ---
XR NECK SOFT TISSUE, 2 VIEWS INDICATION / CLINICAL INFORMATION: Sore throat. COMPARISON: None available. FINDINGS: The airway appears patent. Prevertebral soft tissues are within normal limits. No significant osseous abnormality. Signer Name: Lakshmi Mccullough MD Signed: 10/11/2020 10:53 PM Workstation Name: [id number]
--- NOTE | 2020-10-11 22:58 | XRay Report ---
CHEST 2 VIEWS INDICATION / CLINICAL INFORMATION: chest pain. COMPARISON: Chest radiograph 06/24/2020 FINDINGS: SUPPORT DEVICES: None. HEART / MEDIASTINUM: No significant abnormality. LUNGS / PLEURA: No significant pulmonary or pleural abnormality. No pneumothorax. ADDITIONAL FINDINGS: No significant additional findings. IMPRESSION: 1. No acute findings. Signer Name: Lakshmi Mccullough MD Signed: 10/11/2020 10:54 PM Workstation Name: [id number]
[2020-10-12 03:01] VITALS: BP 156/90
--- NOTE | 2020-10-13 12:59 | Electrocardiograph Report ---
[facility] Test Date: 2020-10-11 Test Time: 19:57:53 Pat Name: SHAWANDA MILIAN Department: Room: Gender: F [id number] Engineer: RON : 1990 Requested By: LONG WEST Order Number: [id number] Reading MD: Stephanie Velez Measurements Intervals [place] Rate: 91 P: 12 DC: 122 QRS: 12 QRSD: 109 T: 0 QT: 385 QTc: 474 Interpretive Statements Sinus rhythm No previous ECG available for comparison Electronically Signed On 10-13-2020 12:58:48 EDT by Stephanie Velez
== END 2020-10-12 03:02 | disposition home or self-care (01) ==
LOC: ED 18:59
DX: J02.9 Acute pharyngitis, unspecified (principal); I10 Essential (primary) hypertension; F32.9 Major depressive disorder, single episode, unspecified; J45.909 Unspecified asthma, uncomplicated; Z90.49 Acquired absence of other specified parts of digestive tract; Z98.890 Other specified postprocedural states; Z79.1 Long term (current) use of non-steroidal anti-inflammatories (NSAID); Z79.899 Other long term (current) drug therapy; Z88.0 Allergy status to penicillin
CPT/HCPCS: 36415; 70360; 71046; 80048; 82550; 82553; 83880; 84484; 84703; 85025; 93005

== ENCOUNTER 2020-10-30 15:08 | Emergency (ER) | payer MEDICAID ==
[2020-10-30] MEDS ORDERED: ALBUTEROL 2.5 MG/3 ML NEBU IH ONE ×3 (15:28→16:37)
--- NOTE | 2020-10-30 16:10 | XRay Report ---
CHEST 2 VIEWS INDICATION / CLINICAL INFORMATION: asthma exacerbation. COMPARISON: 10/11/2020 FINDINGS: SUPPORT DEVICES: None. HEART / MEDIASTINUM: No significant abnormality. LUNGS / PLEURA: No significant pulmonary or pleural abnormality. No pneumothorax. ADDITIONAL FINDINGS: No significant additional findings. IMPRESSION: 1. No acute findings. Signer Name: Minor Queen MD Signed: 10/30/2020 4:05 PM Workstation Name: [id number]
[2020-10-30] MEDS ORDERED: methylPREDNISolone Sod Succinate 125 MG/2 ML INJ IV ONE (16:37)
[2020-10-30] MEDS ORDERED: IPRATROPIUM 0.02% NEBU 2.5 ML IH ONE (16:37)
--- NOTE | 2020-10-30 16:40 | Event Note ---
ED Screening Note Date of service: 10/30/20 Time: 16:38 ED Screening Note: Patient complains of shortness of breath x5 days States she has a history of asthma and was placed on antibiotics, steroid Dosepak, and nebs at home and her symptoms are not improving No history of DVT/PE, recent long travel, hemoptysis, or leg pain/swelling Patient states last week she did receive the [employer] Covid vaccine Patient given a short neb treatment here in ED and states her symptoms improved for a very short amount of time but now the tightness is worse in her chest No wheezing noted on exam This initial assessment/diagnostic orders/clinical plan/treatment(s) is/are subject to change based on patients health status, clinical progression and re- assessment by fellow clinical providers in the ED. Further treatment and workup at subsequent clinical providers discretion. Patient/guardian urged not to elope from the ED as their condition may be serious if not clinically assessed and managed. Initial orders include: Labs Dimer
[2020-10-30 17:09] LABS: Basophils # (Auto) 0.1 K/mm3 (0.0-0.1); Basophils % (Auto) 0.6 % (0.0-1.8); Eosinophils # (Auto) 0.2 K/mm3 (0.0-0.4); Eosinophils % (Auto) 1.7 % (0.0-4.3); Hematocrit 38.3 % (30.3-42.9); Hemoglobin 12.9 gm/dl (10.1-14.3); Lymphocytes # (Auto) 2.1 K/mm3 (1.2-5.4); Lymphocytes % (Auto) 23.1 % (13.4-35.0); Mean Corpuscular HGB Conc 34 % (30-34); Mean Corpuscular Volume 84 fl (79-97); Monocytes # (Auto) 0.5 K/mm3 (0.0-0.8); Monocytes % (Auto) 5.7 % (0.0-7.3); Platelet Count 249 K/mm3 (140-440); Red Blood Count 4.57 M/mm3 (3.65-5.03); Red Cell Distribution Width 13.9 % (13.2-15.2)
[2020-10-30 17:32] LABS: Alanine Aminotransferase 22 units/L (7-56); Blood Urea Nitrogen 13 mg/dL (7-17); Calcium 8.5 mg/dL (8.4-10.2); Hemolysis Index 5
[2020-10-30 17:39] LABS: BUN/Creatinine Ratio 22
[2020-10-30] MEDS ORDERED: POTASSIUM CHLORIDE ER 20 MEQ TAB PO ONE ×2 (18:05→20:05)
== END 2020-10-30 21:40 | disposition left against medical advice (07) ==
LOC: ED 15:08
DX: R06.00 Dyspnea, unspecified (principal); Z53.21 Procedure and treatment not carried out due to patient leaving prior to being seen by health care provider
CPT/HCPCS: 36415; 71046; 80053; 83735; 85025; 85379

== ENCOUNTER 2021-05-16 18:24 | Emergency (ER) | payer MEDICAID ==
[2021-05-16 18:29] VITALS: BP 183/99
[2021-05-16] MEDS ORDERED: FAMOTIDINE 20 MG/2 ML INJ IV ONE (20:12)
[2021-05-16] MEDS ORDERED: SODIUM CHLORIDE 0.9% 1000 ML 1,000 ML IV ONE (20:12)
[2021-05-16] MEDS ORDERED: ONDANSETRON 4 MG/2 ML INJ IV ONE ×2 (20:12→22:04)
--- NOTE | 2021-05-16 20:13 | Event Note ---
ED Screening Note ED Screening Note: She presents for left upper quadrant abdominal pain and left-sided chest pain that began earlier today She has associated nausea He denies any diarrhea, vomiting, fever, urinary symptoms Medical history of hypertension and states that she takes lisinopril hydrochlorothiazide Allergy to penicillin She states that she has to get Benadryl prior to receiving contrast dye This initial assessment/diagnostic orders/clinical plan/treatment(s) is/are subject to change based on patients health status, clinical progression and re- assessment by fellow clinical providers in the ED. Further treatment and workup at subsequent clinical providers discretion. Patient/guardian urged not to elope from the ED as their condition may be serious if not clinically assessed and managed. Initial orders include: labs, xr, ekg, ua, meds
[2021-05-16] MEDS ORDERED: MORPHINE 4 MG/1 ML INJ IV ONE (21:25)
[2021-05-16 21:34] LABS: Basophils # (Auto) 0.1 K/mm3 (0.0-0.1); Basophils % (Auto) 0.7 % (0.0-1.8); Eosinophils # (Auto) 0.3 K/mm3 (0.0-0.4); Eosinophils % (Auto) 2.9 % (0.0-4.3); Hematocrit 38.5 % (30.3-42.9); Hemoglobin 12.4 gm/dl (10.1-14.3); Lymphocytes # (Auto) 2.5 K/mm3 (1.2-5.4); Lymphocytes % (Auto) 22.7 % (13.4-35.0); Mean Corpuscular HGB Conc 32 % (30-34); Mean Corpuscular Volume 83 fl (79-97); Monocytes # (Auto) 0.5 K/mm3 (0.0-0.8); Platelet Count 317 K/mm3 (140-440); Red Blood Count 4.65 M/mm3 (3.65-5.03); Red Cell Distribution Width 13.9 % (13.2-15.2)
[2021-05-16 22:03] LABS: Alanine Aminotransferase 20 units/L (7-56); Albumin 4.1 g/dL (3.9-5); Blood Urea Nitrogen 11 mg/dL (7-17); Hemolysis Index 6
--- NOTE | 2021-05-16 22:07 | Emergency Department Report ---
ED Abdominal Pain HPI - General Chief Complaint: Chest Pain Stated Complaint: CHEST PAIN Source: patient Mode of arrival: Stretcher Limitations: No Limitations - History of Present Illness Initial Comments: Patient is a 30-year-old female with a history of morbid obesity, hypertension, asthma, anxiety and depression who presents to the ED with complaint of acute onset persistent left upper quadrant abdominal pain that radiates to the epigastric area, left-sided chest wall pain and left arm tingling sensation as well as persistent severe headache for the last 2 days. Patient states that her symptoms got worse in the last 12 hours especially with persistent headache and left upper quadrant epigastric pain. Patient also complains of persistent nausea but denies dizziness, syncope, palpitations, shortness of breath, fever, chills, cough, vomiting, diarrhea, traumatic injury, hematemesis, hemoptysis, back pain, dysuria, urinary frequency and urgency, hematuria or vaginal bleeding. MD Complaint: abdominal pain (Left upper quadrant, epigastric pain), other (Left-sided chest pain with numbness of left arm; headache) -: Sudden, days(s) (2) Location: LUQ, epigastric Radiation: LUQ, epigastric, chest (Left chest) Migration to: no migration Severity: moderate Severity scale (0 -10): 6 Quality: cramping, aching Consistency: constant Improves With: nothing Worsens With: eating Associated Symptoms: denies other symptoms, nausea, anorexia, other (Headache and chest pain). denies: vomiting, diarrhea, fever, chills, constipation, dysuria, hematemesis, hematochezia, melena, hematuria, syncope - Related Data Previous Rx's Medication Instructions Recorded Last Taken Type Vit No.130/Iron/Folic 1 each PO QDAY #30 tablet 01/23/16 1 Day Ago Rx [ Tablet] ~08/19/16 Ferrous Sulfate [Feosol 325 MG tab] 325 mg PO BID #60 tablet 09/07/16 Unknown Rx Vit Calc,Iron,Folic 1 each PO DAILY #30 tablet 09/07/16 Unknown Rx [ Vitamins] Fluticasone [Flonase] 1 spray NS QDAY #1 bottle 06/25/19 Unknown Rx Ibuprofen [Motrin 800 MG tab] 800 mg PO Q8HR PRN #30 tablet 09/06/19 Unknown Rx Ibuprofen [Motrin 800 MG tab] 800 mg PO Q8HR PRN #20 tablet 10/22/19 Unknown Rx Potassium Chloride [K-Dur] 20 meq PO QDAY #14 tablet 12/27/19 Unknown Rx Dicyclomine [Bentyl] 20 mg PO Q6H PRN #30 tablet 01/27/20 Unknown Rx Diphenoxylate/Atropine [Lomotil] 1 - 2 tab PO Q4H PRN #15 tablet 01/27/20 Unknown Rx Famotidine [Pepcid] 20 mg PO BID #60 tablet 01/27/20 Unknown Rx Ketorolac [Toradol] 10 mg PO Q8H PRN #20 tablet 01/27/20 Unknown Rx Ondansetron [Zofran ODT TAB] 4 mg PO Q6HR PRN #20 tab.rapdis 01/27/20 Unknown Rx Acetaminophen/Codeine [Tylenol 1 tab PO Q6H PRN #12 tab 01/30/20 Unknown Rx /Codeine # 3 tab] Ciprofloxacin HCl [Ciprofloxacin 500 mg PO Q12HR #20 tab 01/30/20 Unknown Rx TAB] Ondansetron [Zofran ODT TAB] 4 mg PO Q8HR PRN #12 tab.rapdis 01/30/20 Unknown Rx metroNIDAZOLE [Flagyl TAB] 500 mg PO Q8HR #30 tablet 01/30/20 Unknown Rx Ibuprofen [Motrin 800 MG tab] 800 mg PO Q8HR PRN #30 tablet 02/12/20 Unknown Rx lisinopriL [Zestril TAB] 10 mg PO QDAY #30 tablet 02/12/20 Unknown Rx Naproxen [EC-Naproxen] 500 mg PO BID PRN #14 tablet. 03/06/20 Unknown Rx traMADoL [Ultram 50 MG tab] 50 mg PO Q6HR PRN #8 tablet 06/25/20 Unknown Rx Ondansetron [Zofran ODT TAB] 4 mg PO Q8HR PRN #12 tab.rapdis 08/07/20 Unknown Rx Sulfamethoxazole/Trimethoprim 1 each PO BID #14 tablet 08/07/20 Unknown Rx [Bactrim DS TAB] Clindamycin [Clindamycin CAP] 300 mg PO Q6H #28 capsule 10/12/20 Unknown Rx HYDROcodone/APAP 5-325 [[place] 1 - 2 each PO Q6HR PRN #10 tablet 10/12/20 Unknown Rx 5-325 mg TAB] Ibuprofen [Motrin 800 MG tab] 800 mg PO Q8HR PRN #20 tablet 10/12/20 Unknown Rx Aspirin 325 mg PO QDAY 60 Days #60 tablet 03/04/21 Unknown Rx AtorvaSTATin [Lipitor] 40 mg PO QHS 90 Days #90 tablet 03/04/21 Unknown Rx NIFEdipine XL [Procardia Xl] 30 mg PO QDAY 90 Days #90 tablet 03/04/21 Unknown Rx Promethazine [Phenergan SUPPOS] 25 mg [place] Q6H PRN supp.rect 03/04/21 Unknown Rx Sodium Chloride 0.9% Int [Sodium 10 ml IV BID syringe 03/04/21 Unknown Rx Chloride Flush Syringe 10 ml] Sodium Chloride 0.9% Int [Sodium 10 ml IV PRN PRN syringe 03/04/21 Unknown Rx Chloride Flush Syringe 10 ml] Topiramate [Topamax] 50 mg PO DAILY 60 Days #60 tablet 03/04/21 Unknown Rx hydroCHLOROthiazide [HCTZ] 12.5 mg PO QDAY 90 Days #90 capsule 03/04/21 Unknown Rx Butalb/Acetamin/Caff 50-325-40 1 - 2 tab PO Q6HR PRN #5 tab 05/16/21 Unknown Rx [Fioricet 50-325-40] Dicyclomine [Bentyl] 20 mg PO Q6H PRN #30 tablet 05/16/21 Unknown Rx Famotidine [Pepcid] 20 mg PO BID #60 tablet 05/16/21 Unknown Rx Ondansetron [Zofran Odt] 4 mg PO Q6HR PRN #20 tab.rapdis 05/16/21 Unknown Rx Allergies Allergy/AdvReac Type Severity Reaction Status Date / Time Penicillins Allergy Rash Verified 08/02/20 17:33 ED Review of Systems ROS: Stated complaint: CHEST PAIN Other details as noted in HPI Constitutional: denies: chills, fever Eyes: denies: eye pain, eye discharge, vision change ENT: denies: ear pain, throat pain Respiratory: denies: cough, shortness of breath, wheezing Cardiovascular: chest pain (Left-sided chest pain). denies: palpitations Endocrine: no symptoms reported Gastrointestinal: abdominal pain (Left upper quadrant and epigastric pain), nausea. denies: vomiting, diarrhea Genitourinary: denies: urgency, dysuria, discharge Musculoskeletal: denies: back pain, joint swelling, arthralgia Skin: denies: rash, lesions Neurological: headache. denies: weakness, paresthesias Psychiatric: denies: anxiety, depression Hematological/Lymphatic: denies: easy bleeding, easy bruising ED Past Medical Hx - Past Medical History Hx Hypertension: Yes (PIH) Hx Congestive Heart Failure: No Hx Diabetes: No Hx Deep Vein Thrombosis: No Hx Renal Disease: No Hx Sickle Cell Disease: No Hx Seizures: No Hx Psychiatric Treatment: Yes (Depression) Hx Asthma: Yes Hx HIV: No Additional medical history: Implanon implant Apr 14, 2011, hypoglycemic, MORBID OBESITY - Surgical History Hx Appendectomy: Yes (2009) Additional Surgical History: , Removal of implanon 05-19-2014 - Social History Smoking Status: Never Smoker - Medications Home Medications: Home Medications Medication Instructions Recorded Confirmed Last Taken Type Vit No.130/Iron/Folic 1 each PO QDAY #30 tablet 01/23/16 09/08/16 1 Day Ago Rx [ Tablet] ~08/19/16 Ferrous Sulfate [Feosol 325 MG tab] 325 mg PO BID #60 tablet 09/07/16 Unknown Rx Vit Calc,Iron,Folic 1 each PO DAILY #30 tablet 09/07/16 Unknown Rx [ Vitamins] Fluticasone [Flonase] 1 spray NS QDAY #1 bottle 06/25/19 Unknown Rx Ibuprofen [Motrin 800 MG tab] 800 mg PO Q8HR PRN #30 tablet 09/06/19 Unknown Rx Ibuprofen [Motrin 800 MG tab] 800 mg PO Q8HR PRN #20 tablet 10/22/19 Unknown Rx Potassium Chloride [K-Dur] 20 meq PO QDAY #14 tablet 12/27/19 Unknown Rx Dicyclomine [Bentyl] 20 mg PO Q6H PRN #30 tablet 01/27/20 Unknown Rx Diphenoxylate/Atropine [Lomotil] 1 - 2 tab PO Q4H PRN #15 tablet 01/27/20 Unknown Rx Famotidine [Pepcid] 20 mg PO BID #60 tablet 01/27/20 Unknown Rx Ketorolac [Toradol] 10 mg PO Q8H PRN #20 tablet 01/27/20 Unknown Rx Ondansetron [Zofran ODT TAB] 4 mg PO Q6HR PRN #20 tab.rapdis 01/27/20 Unknown Rx Acetaminophen/Codeine [Tylenol 1 tab PO Q6H PRN #12 tab 01/30/20 Unknown Rx /Codeine # 3 tab] Ciprofloxacin HCl [Ciprofloxacin 500 mg PO Q12HR #20 tab 01/30/20 Unknown Rx TAB] Ondansetron [Zofran ODT TAB] 4 mg PO Q8HR PRN #12 tab.rapdis 01/30/20 Unknown Rx metroNIDAZOLE [Flagyl TAB] 500 mg PO Q8HR #30 tablet 01/30/20 Unknown Rx Ibuprofen [Motrin 800 MG tab] 800 mg PO Q8HR PRN #30 tablet 02/12/20 Unknown Rx lisinopriL [Zestril TAB] 10 mg PO QDAY #30 tablet 02/12/20 Unknown Rx Naproxen [EC-Naproxen] 500 mg PO BID PRN #14 tablet.dr 03/06/20 Unknown Rx traMADoL [Ultram 50 MG tab] 50 mg PO Q6HR PRN #8 tablet 06/25/20 Unknown Rx Ondansetron [Zofran ODT TAB] 4 mg PO Q8HR PRN #12 tab.rapdis 08/07/20 Unknown Rx Sulfamethoxazole/Trimethoprim 1 each PO BID #14 tablet 08/07/20 Unknown Rx [Bactrim DS TAB] Clindamycin [Clindamycin CAP] 300 mg PO Q6H #28 capsule 10/12/20 Unknown Rx HYDROcodone/APAP 5-325 [[place] 1 - 2 each PO Q6HR PRN #10 tablet 10/12/20 Unk nown Rx 5-325 mg TAB] Ibuprofen [Motrin 800 MG tab] 800 mg PO Q8HR PRN #20 tablet 10/12/20 Unknown Rx Aspirin 325 mg PO QDAY 60 Days #60 tablet 03/04/21 Unknown Rx AtorvaSTATin [Lipitor] 40 mg PO QHS 90 Days #90 tablet 03/04/21 Unknown Rx NIFEdipine XL [Procardia Xl] 30 mg PO QDAY 90 Days #90 tablet 03/04/21 Unknown Rx Promethazine [Phenergan SUPPOS] 25 mg [place] Q6H PRN supp.rect 03/04/21 Unknown Rx Sodium Chloride 0.9% Int [Sodium 10 ml IV BID syringe 03/04/21 Unknown Rx Chloride Flush Syringe 10 ml] Sodium Chloride 0.9% Int [Sodium 10 ml IV PRN PRN syringe 03/04/21 Unknown Rx Chloride Flush Syringe 10 ml] Topiramate [Topamax] 50 mg PO DAILY 60 Days #60 tablet 03/04/21 Unknown Rx hydroCHLOROthiazide [HCTZ] 12.5 mg PO QDAY 90 Days #90 capsule 03/04/21 Unknown Rx Butalb/Acetamin/Caff 50-325-40 1 - 2 tab PO Q6HR PRN #5 tab 05/16/21 Unknown Rx [Fioricet 50-325-40] Dicyclomine [Bentyl] 20 mg PO Q6H PRN #30 tablet 05/16/21 Unknown Rx Famotidine [Pepcid] 20 mg PO BID #60 tablet 05/16/21 Unknown Rx Ondansetron [Zofran Odt] 4 mg PO Q6HR PRN #20 tab.rapdis 05/16/21 Unknown Rx ED Physical Exam - General Limitations: No Limitations General appearance: alert, in no apparent distress, anxious - Head Head exam: Present: atraumatic, normocephalic - Eye Eye exam: Present: normal appearance, PERRL, EOMI Pupils: Present: normal accommodation - ENT ENT exam: Present: normal exam, normal orophraynx, mucous membranes moist, TM's normal bilaterally, normal external ear exam - Neck Neck exam: Present: normal inspection, full ROM. Absent: tenderness - Respiratory Respiratory exam: Present: normal lung sounds bilaterally, chest wall tenderness (Palpable reproducible left lateral chest wall tenderness). Absent: respiratory distress, wheezes, rales, rhonchi, accessory muscle use, decreased breath sounds, prolonged expiratory - Cardiovascular Cardiovascular Exam: Present: regular rate, normal rhythm, normal heart sounds. Absent: systolic murmur, diastolic murmur, rubs, gallop - GI/Abdominal GI/Abdominal exam: Present: soft, tenderness (Palpable left upper quadrant and epigastric tenderness), normal bowel sounds. Absent: guarding, rebound, hyperactive bowel sounds, hypoactive bowel sounds, organomegaly - Extremities Exam Extremities exam: Present: normal inspection, full ROM, normal capillary refill - Back Exam Back exam: Present: normal inspection, full ROM. Absent: tenderness, CVA tenderness (R), CVA tenderness (L), muscle spasm, paraspinal tenderness, vertebral tenderness - Neurological Exam Neurological exam: Present: alert, oriented X3, CN II-XII intact, normal gait, reflexes normal - Psychiatric Psychiatric exam: Present: normal affect, normal mood - Skin Skin exam: Present: warm, dry, intact, normal color. Absent: rash ED Course Vital Signs 05/16/21 18:26 Temperature 98.6 F Pulse Rate 83 Respiratory 18 Rate Blood Pressure 183/99 [Left] O2 Sat by Pulse 98 Oximetry ED Medical Decision Making - Lab Data Result diagrams: 05/16/21 20:44 05/16/21 20:44 - Radiology Data Radiology results: report reviewed, image reviewed - Medical Decision Making This is a 30-year-old female with a history of morbid obesity, hypertension, asthma, anxiety and depression who presents to the ED with complaint of acute onset persistent left upper quadrant abdominal pain that radiates to the epigastric area, left-sided chest wall pain and left arm tingling sensation as well as persistent severe headache for the last 2 days. Patient states that her symptoms got worse in the last 12 hours especially with persistent headache and left upper quadrant epigastric pain. Patient also complains of persistent nausea. In the ED, patient is alert and oriented x3 and is not in any distress but anxious and hypertensive in triage. Patient was treated in the ED for pain, also given antacids, antiemetics, normal saline 1 L IV bolus x1. Chest x-ray showed no acute cardiopulmonary abnormalities or pneumonitis. EKG shows normal sinus rhythm with a ventricular rate of [address] or T wave abnormalities. All lab test results were reviewed and are all nonactionable including troponin levels. Based on the history and physical exam findings, lab test results and imaging reports patient symptoms are likely due to GERD, gastritis, gastroenteritis and migraine headaches. On reevaluation, patient's pain resolved with medication. Patient was discharged home on medications and advised to continue taking her regular medications and follow-up with her primary care physician in 3 to 5 days for reevaluation or return to the ED immediately if symptoms get worse. - Differential Diagnosis GERD; gastritis; ACS; pneumonia; gastroenteritis; Critical care attestation.: If time is entered above; I have spent that time in minutes in the direct care of this critically ill patient, excluding procedure time. ED Disposition Clinical Impression: Acute abdominal pain in left upper quadrant Migraine headache without aura Qualifiers: Status migrainosus presence: with status migrainosus Intractability: not intractable Qualified Code(s): G43.001 - Migraine without aura, not intractable, with status migrainosus GERD (gastroesophageal reflux disease) Qualifiers: Esophagitis presence: esophagitis presence not specified Qualified Code(s): K21.9 - Gastro-esophageal reflux disease without esophagitis Disposition: 01 HOME / SELF CARE / HOMELESS Is pt being admited?: No Does the pt Need Aspirin: No Condition: Stable Instructions: Abdominal Pain, Adult, [id number], Migraine Headache, [id number], Gastroesophageal Reflux Disease, Adult, [id number] Additional Instructions: All lab test results were reviewed and are all nonactionable. Chest x-ray showed no acute cardiopulmonary abnormalities or pneumonitis. Therefore take medication with food, drink plenty of fluids and follow-up with your primary care physician in 3 to 5 days for reevaluation. Return to the ED immediately if symptoms get worse. Prescriptions: Dicyclomine [Bentyl] 20 mg PO Q6H PRN #30 tablet PRN Reason: Abdominal pain Butalb/Acetamin/Caff 50-325-40 [Fioricet 50-325-40] 1 - 2 tab PO Q6HR PRN #5 tab PRN Reason: Headache Famotidine [Pepcid] 20 mg PO BID #60 tablet Ondansetron [Zofran Odt] 4 mg PO Q6HR PRN #20 tab.rapdis PRN Reason: Nausea Referrals: [facility] [Provider Group] - 3-5 Days Time of Disposition: 23:45 Print Language: NORWEGIAN
[2021-05-16 22:26] LABS: BUN/Creatinine Ratio 22
[2021-05-16] MEDS ORDERED: PROCHLORPERAZINE EDISYLATE 10 MG/2 ML VIAL IV ONE (22:40)
--- NOTE | 2021-05-16 23:24 | XRay Report ---
XR chest routine 2V INDICATION / CLINICAL INFORMATION: Chest Pain. COMPARISON: 03/01/2021 FINDINGS: SUPPORT DEVICES: None. HEART /PULMONARY VASCULATURE: No significant abnormality. LUNGS / PLEURA: No significant pulmonary or pleural abnormality. No pneumothorax. ADDITIONAL FINDINGS: No significant additional findings. IMPRESSION: 1. No acute findings. Signer Name: Hardy Philippe MD Signed: 05/16/2021 11:20 PM Workstation Name: [id number]
--- NOTE | 2021-05-17 11:43 | Electrocardiograph Report ---
[facility] Test Date: 2021-05-16 Test Time: 21:48:51 Pat Name: SHAWANDA MILIAN Department: Room: Gender: F Cdl Service Technician: JUAN : 1990 Requested By: SHAWANDA HASTINGS Order Number: [id number] Reading MD: Praveen Hector Measurements Intervals [place] Rate: 71 P: -6 FL: 126 QRS: 22 QRSD: 107 T: 19 QT: 427 QTc: 464 Interpretive Statements Sinus rhythm Compared to ECG 03/01/2021 01:52:20 Sinus tachycardia no longer present Electronically Signed On 05-17-2021 11:43:00 EST by Praveen Hector
== END 2021-05-16 23:55 | disposition home or self-care (01) ==
LOC: ED 18:24
DX: R10.12 Left upper quadrant pain (principal); G43.009 Migraine without aura, not intractable, without status migrainosus; K21.9 Gastro-esophageal reflux disease without esophagitis; I10 Essential (primary) hypertension; J45.909 Unspecified asthma, uncomplicated; E66.01 Morbid (severe) obesity due to excess calories; Z98.890 Other specified postprocedural states; Z88.0 Allergy status to penicillin
CPT/HCPCS: 36415; 71046; 80053; 83690; 84484; 84703; 85025; 93005; 96361; 96374; 96375; 96376; 99284; J0780; J2270; J2405; J3490; J7030; Q0162

== ENCOUNTER 2021-07-07 19:16 | Emergency (ER) | payer MEDICAID ==
[2021-07-07 19:22] VITALS: BP 149/80
--- NOTE | 2021-07-07 19:42 | Emergency Department Report ---
ED General Adult HPI - General Chief complaint: Chest Pain Stated complaint: CHEST PAIN Time Seen by Provider: 07/07/21 19:18 Source: EMS Mode of arrival: Stretcher Limitations: No Limitations - History of Present Illness Initial comments: Chief complaint: Chest pain elevated blood pressure HPI: This is a 30-year-old female with history of hypertension, asthma, depression who presents with chest pain. She had transient sharp chest pain which lasted several seconds. She had back pain. Transient shortness of breath. She was concerned that her blood pressure was elevated. Systolic 190 per EMS. She received nitroglycerin and aspirin. Repeat blood pressure 140s according to EMS. In the emergency department blood pressure 149/80. Today she did eat salty foods including rice&rogerio. She has been compliant with lisinopril 40 mg twice daily and diuretic. She is currently symptom-free at this time. -: Gradual Location: chest Severity scale (0 -10): 0 Consistency: now resolved Improves with: none Worsens with: none Associated Symptoms: chest pain - Related Data Previous Rx's Medication Instructions Recorded Last Taken Type Vit No.130/Iron/Folic 1 each PO QDAY #30 tablet 01/23/16 1 Day Ago Rx [ Tablet] ~08/19/16 Ferrous Sulfate [Feosol 325 MG tab] 325 mg PO BID #60 tablet 09/07/16 Unknown Rx Vit Calc,Iron,Folic 1 each PO DAILY #30 tablet 09/07/16 Unknown Rx [ Vitamins] Fluticasone [Flonase] 1 spray NS QDAY #1 bottle 06/25/19 Unknown Rx Ibuprofen [Motrin 800 MG tab] 800 mg PO Q8HR PRN #30 tablet 09/06/19 Unknown Rx Ibuprofen [Motrin 800 MG tab] 800 mg PO Q8HR PRN #20 tablet 10/22/19 Unknown Rx Potassium Chloride [K-Dur] 20 meq PO QDAY #14 tablet 12/27/19 Unknown Rx Dicyclomine [Bentyl] 20 mg PO Q6H PRN #30 tablet 01/27/20 Unknown Rx Diphenoxylate/Atropine [Lomotil] 1 - 2 tab PO Q4H PRN #15 tablet 01/27/20 Unknown Rx Famotidine [Pepcid] 20 mg PO BID #60 tablet 01/27/20 Unknown Rx Ketorolac [Toradol] 10 mg PO Q8H PRN #20 tablet 01/27/20 Unknown Rx Ondansetron [Zofran ODT TAB] 4 mg PO Q6HR PRN #20 tab.rapdis 01/27/20 Unknown Rx Acetaminophen/Codeine [Tylenol 1 tab PO Q6H PRN #12 tab 01/30/20 Unknown Rx /Codeine # 3 tab] Ciprofloxacin HCl [Ciprofloxacin 500 mg PO Q12HR #20 tab 01/30/20 Unknown Rx TAB] Ondansetron [Zofran ODT TAB] 4 mg PO Q8HR PRN #12 tab.rapdis 01/30/20 Unknown Rx metroNIDAZOLE [Flagyl TAB] 500 mg PO Q8HR #30 tablet 01/30/20 Unknown Rx Ibuprofen [Motrin 800 MG tab] 800 mg PO Q8HR PRN #30 tablet 02/12/20 Unknown Rx lisinopriL [Zestril TAB] 10 mg PO QDAY #30 tablet 02/12/20 Unknown Rx Naproxen [EC-Naproxen] 500 mg PO BID PRN #14 tablet. 03/06/20 Unknown Rx traMADoL [Ultram 50 MG tab] 50 mg PO Q6HR PRN #8 tablet 06/25/20 Unknown Rx Ondansetron [Zofran ODT TAB] 4 mg PO Q8HR PRN #12 tab.rapdis 08/07/20 Unknown Rx Sulfamethoxazole/Trimethoprim 1 each PO BID #14 tablet 08/07/20 Unknown Rx [Bactrim DS TAB] Clindamycin [Clindamycin CAP] 300 mg PO Q6H #28 capsule 10/12/20 Unknown Rx HYDROcodone/APAP 5-325 [[place] 1 - 2 each PO Q6HR PRN #10 tablet 10/12/20 Unknown Rx 5-325 mg TAB] Ibuprofen [Motrin 800 MG tab] 800 mg PO Q8HR PRN #20 tablet 10/12/20 Unknown Rx Aspirin 325 mg PO QDAY 60 Days #60 tablet 03/04/21 Unknown Rx AtorvaSTATin [Lipitor] 40 mg PO QHS 90 Days #90 tablet 03/04/21 Unknown Rx NIFEdipine XL [Procardia Xl] 30 mg PO QDAY 90 Days #90 tablet 03/04/21 Unknown Rx Promethazine [Phenergan SUPPOS] 25 mg MO Q6H PRN supp.rect 03/04/21 Unknown Rx Sodium Chloride 0.9% Int [Sodium 10 ml IV BID syringe 03/04/21 Unknown Rx Chloride Flush Syringe 10 ml] Sodium Chloride 0.9% Int [Sodium 10 ml IV PRN PRN syringe 03/04/21 Unknown Rx Chloride Flush Syringe 10 ml] Topiramate [Topamax] 50 mg PO DAILY 60 Days #60 tablet 03/04/21 Unknown Rx hydroCHLOROthiazide [HCTZ] 12.5 mg PO QDAY 90 Days #90 capsule 03/04/21 Unknown Rx Butalb/Acetamin/Caff 50-325-40 1 - 2 tab PO Q6HR PRN #5 tab 05/16/21 Unknown Rx [Fioricet 50-325-40] Dicyclomine [Bentyl] 20 mg PO Q6H PRN #30 tablet 05/16/21 Unknown Rx Famotidine [Pepcid] 20 mg PO BID #60 tablet 05/16/21 Unknown Rx Ondansetron [Zofran Odt] 4 mg PO Q6HR PRN #20 tab.rapdis 05/16/21 Unknown Rx Allergies Allergy/AdvReac Type Severity Reaction Status Date / Time Penicillins Allergy Rash Verified 08/02/20 17:33 ED Review of Systems ROS: Stated complaint: CHEST PAIN Other details as noted in HPI Comment: All other systems reviewed and negative Constitutional: denies: chills, fever, malaise Respiratory: shortness of breath. denies: cough Cardiovascular: chest pain Gastrointestinal: denies: abdominal pain ED Past Medical Hx - Past Medical History Previous Medical History?: Yes Hx Hypertension: Yes (PIH) Hx Congestive Heart Failure: No Hx Diabetes: No Hx Deep Vein Thrombosis: No Hx Renal Disease: No Hx Sickle Cell Disease: No Hx Seizures: No Hx Psychiatric Treatment: Yes (Depression) Hx Asthma: Yes Hx HIV: No Additional medical history: Implanon implant Apr 14, 2011, hypoglycemic, MORBID OBESITY - Surgical History Past Surgical History?: Yes Hx Appendectomy: Yes (2009) Additional Surgical History: , Removal of implanon 05-19-2014 - Social History Smoking Status: Never Smoker Substance Use Type: None - Medications Home Medications: Home Medications Medication Instructions Recorded Confirmed Last Taken Type Vit No.130/Iron/Folic 1 each PO QDAY #30 tablet 01/23/16 09/08/16 1 Day Ago Rx [ Tablet] ~08/19/16 Ferrous Sulfate [Feosol 325 MG tab] 325 mg PO BID #60 tablet 09/07/16 Unknown Rx Vit Calc,Iron,Folic 1 each PO DAILY #30 tablet 09/07/16 Unknown Rx [ Vitamins] Fluticasone [Flonase] 1 spray NS QDAY #1 bottle 06/25/19 Unknown Rx Ibuprofen [Motrin 800 MG tab] 800 mg PO Q8HR PRN #30 tablet 09/06/19 Unknown Rx Ibuprofen [Motrin 800 MG tab] 800 mg PO Q8HR PRN #20 tablet 10/22/19 Unknown Rx Potassium Chloride [K-Dur] 20 meq PO QDAY #14 tablet 12/27/19 Unknown Rx Dicyclomine [Bentyl] 20 mg PO Q6H PRN #30 tablet 01/27/20 Unknown Rx Diphenoxylate/Atropine [Lomotil] 1 - 2 tab PO Q4H PRN #15 tablet 01/27/20 Unknown Rx Famotidine [Pepcid] 20 mg PO BID #60 tablet 01/27/20 Unknown Rx Ketorolac [Toradol] 10 mg PO Q8H PRN #20 tablet 01/27/20 Unknown Rx Ondansetron [Zofran ODT TAB] 4 mg PO Q6HR PRN #20 tab.rapdis 01/27/20 Unknown Rx Acetaminophen/Codeine [Tylenol 1 tab PO Q6H PRN #12 tab 01/30/20 Unknown Rx /Codeine # 3 tab] Ciprofloxacin HCl [Ciprofloxacin 500 mg PO Q12HR #20 tab 01/30/20 Unknown Rx TAB] Ondansetron [Zofran ODT TAB] 4 mg PO Q8HR PRN #12 tab.rapdis 01/30/20 Unknown Rx metroNIDAZOLE [Flagyl TAB] 500 mg PO Q8HR #30 tablet 01/30/20 Unknown Rx Ibuprofen [Motrin 800 MG tab] 800 mg PO Q8HR PRN #30 tablet 02/12/20 Unknown Rx lisinopriL [Zestril TAB] 10 mg PO QDAY #30 tablet 02/12/20 Unknown Rx Naproxen [EC-Naproxen] 500 mg PO BID PRN #14 tablet. 03/06/20 Unknown Rx traMADoL [Ultram 50 MG tab] 50 mg PO Q6HR PRN #8 tablet 06/25/20 Unknown Rx Ondansetron [Zofran ODT TAB] 4 mg PO Q8HR PRN #12 tab.rapdis 08/07/20 Unknown Rx Sulfamethoxazole/Trimethoprim 1 each PO BID #14 tablet 08/07/20 Unknown Rx [Bactrim DS TAB] Clindamycin [Clindamycin CAP] 300 mg PO Q6H #28 capsule 10/12/20 Unknown Rx HYDROcodone/APAP 5-325 [[place] 1 - 2 each PO Q6HR PRN #10 tablet 10/12/20 Unknown Rx 5-325 mg TAB] Ibuprofen [Motrin 800 MG tab] 800 mg PO Q8HR PRN #20 tablet 10/12/20 Unknown Rx Aspirin 325 mg PO QDAY 60 Days #60 tablet 03/04/21 Unknown Rx AtorvaSTATin [Lipitor] 40 mg PO QHS 90 Days #90 tablet 03/04/21 Unknown Rx NIFEdipine XL [Procardia Xl] 30 mg PO QDAY 90 Days #90 tablet 03/04/21 Unknown Rx Promethazine [Phenergan SUPPOS] 25 mg MO Q6H PRN supp.rect 03/04/21 Unknown Rx Sodium Chloride 0.9% Int [Sodium 10 ml IV BID syringe 03/04/21 Unknown Rx Chloride Flush Syringe 10 ml] Sodium Chloride 0.9% Int [Sodium 10 ml IV PRN PRN syringe 03/04/21 Unknown Rx Chloride Flush Syringe 10 ml] Topiramate [Topamax] 50 mg PO DAILY 60 Days #60 tablet 03/04/21 Unknown Rx hydroCHLOROthiazide [HCTZ] 12.5 mg PO QDAY 90 Days #90 capsule 03/04/21 Unknown Rx Butalb/Acetamin/Caff 50-325-40 1 - 2 tab PO Q6HR PRN #5 tab 05/16/21 Unknown Rx [Fioricet 50-325-40] Dicyclomine [Bentyl] 20 mg PO Q6H PRN #30 tablet 05/16/21 Unknown Rx Famotidine [Pepcid] 20 mg PO BID #60 tablet 05/16/21 Unknown Rx Ondansetron [Zofran Odt] 4 mg PO Q6HR PRN #20 tab.rapdis 05/16/21 Unknown Rx ED Physical Exam - General Limitations: No Limitations ED Course Vital Signs 07/07/21 19:21 Temperature 97.4 F L Pulse Rate 98 H Respiratory 16 Rate Blood Pressure 149/80 [Left] O2 Sat by Pulse 98 Oximetry ED Medical Decision Making - EKG Data -: EKG Interpreted by Me EKG shows normal: sinus rhythm, axis, intervals, QRS complexes, ST-T waves Rate: normal - EKG Data Interpretation: normal EKG 07/07/21 19:40 EKG obtained EKG interpreted by me Rate 90 bpm normal sinus rhythm normal rate normal axis normal intervals no ST elevation no ST-T signs of ischemia normal EKG - Medical Decision Making 1. Hypertensive urgency: Suspect dietary indiscretion with high sodium intake. Patient received verbal education. Recommended monitoring her blood pressure. She has a home blood pressure cuff. She is followed by Dr[facility]. PERC negative for PE 2. Chest wall pain: Patient has had extensive previous evaluation for recurrent chest pain including echocardiogram. No indication of ACS PE dissection. EKG negative for signs of pericarditis. She is discharged home. Critical care attestation.: If time is entered above; I have spent that time in minutes in the direct care of this critically ill patient, excluding procedure time. ED Disposition Clinical Impression: Hypertensive urgency, Chest wall pain Disposition: HOME / SELF CARE / HOMELESS Is pt being admited?: No Does the pt Need Aspirin: No Condition: Stable Instructions: Chest Wall Pain, Managing Your Hypertension Referrals: PRIMARY CARE, [Referring] - 3-5 Days
--- NOTE | 2021-07-08 08:50 | Electrocardiograph Report ---
[facility] Test Date: 2021-07-07 Test Time: 19:33:16 Pat Name: SHAWANDA MILIAN Department: Room: Gender: F [employer] Section: [place] : 1990 Requested By: KARINE RAMIREZ Order Number: [id number] Reading MD: Tay Rabago Measurements Intervals [place] Rate: 89 P: 18 GA: 128 QRS: 58 QRSD: 108 T: 22 QT: 392 QTc: 477 Interpretive Statements Sinus rhythm Compared to ECG 05/16/2021 21:48:51 No significant changes Electronically Signed On 07-08-2021 8:50:15 EST by Tay Rabago
== END 2021-07-07 19:54 | disposition home or self-care (01) ==
LOC: ED 19:16
DX: I16.0 Hypertensive urgency (principal); R07.89 Other chest pain; F32.A Depression, unspecified; J45.909 Unspecified asthma, uncomplicated; Z88.0 Allergy status to penicillin; Z79.899 Other long term (current) drug therapy; Z98.890 Other specified postprocedural states
CPT/HCPCS: 93005; 93010; 99283